=== PATIENT | female | born 1955 | race Caucasian/White ===

== ENCOUNTER 2016-12-25 14:15 | Inpatient (IN) | payer BC ==
[~2016-12-25] VITALS: Ht 157.5 cm; Wt 106.3 kg
[~2016-12-25 14:15] MED LIST: ASCO500T2 PO; ATOR40TA59 PO; BUDE10.2 IH; CHLO25TA PO; CHOL100013 PO; Ipratropium/Albuterol Sulfate NEB; LEVO250T25 PO; MONT10TA6 PO; PANT40TA3 PO; POTA10TA12 PO; PRED-220 PO; VENTOLIN HFA18 GM INH; VITA200C7 PO
[2016-12-25 15:15] LABS: BASO % 1 % (0-3); EOS % 5 % (0-3); HEMATOCRIT 31.7 % (36.0-47.0); HEMOGLOBIN 10.2 g/dL (12.0-15.5); LYMPH # 1.1 x10^3/uL (1.0-4.8); LYMPH % 11 % (24-48); MEAN CORPUSCULAR HEMOGLOBIN 29 pg (25-35); MEAN CORPUSCULAR HGB CONC 32 g/dL (31-37); MEAN CORPUSCULAR VOLUME 90 fL (79-100); MONO % 8 % (0-9); NEUT % 77 % (31-73); PLATELET COUNT 295 x10^3/uL (140-400); RED BLOOD COUNT 3.51 x10^6/uL (3.50-5.40); RED CELL DISTRIBUTION WIDTH 16.5 % (11.5-14.5); WHITE BLOOD COUNT 10.2 x10^3/uL (4.0-11.0)
[2016-12-25] MEDS ORDERED: ALBUTEROL SULFATE 2.5 MG/3 ML NEBU. NEB ONE ×2 (15:15→16:15)
--- NOTE | 2016-12-25 15:17 | RAD ---
AP portable chest radiograph 12/25/2016 Clinical History: Shortness of breath for one week. An AP portable erect digital radiograph of the chest was obtained. Comparison study is dated 05/29/2016. The cardiac silhouette is mildly enlarged. Atherosclerotic calcification of the thoracic aorta is seen. The thoracic aorta is mildly tortuous. No acute pulmonary infiltrate is seen. No pleural effusion or pneumothorax is noted. Mild degenerative changes are seen involving the thoracic spine. Impression: No acute pulmonary infiltrate is seen.
[2016-12-25 15:26] LABS: CALCIUM 9.2 mg/dL (8.5-10.1); CREATININE 3.4 mg/dL (0.6-1.0); GFR 13.7; POTASSIUM 4.7 mmol/L (3.5-5.1)
[2016-12-25 15:33] LABS: ALBUMIN 2.8 g/dL (3.4-5.0); ALBUMIN/GLOBULIN RATIO 0.7 (1.0-1.7); TOTAL BILIRUBIN 0.1 mg/dL (0.2-1.0); TOTAL PROTEIN 7.1 g/dL (6.4-8.2)
[2016-12-25] MEDS ORDERED: methylPREDNISolone SOD SUCC PF 125 MG/2 ML VIAL. IV ONE (16:15)
[2016-12-25] MEDS ORDERED: FUROSEMIDE 40 MG TABLET. PO ONE (16:15)
--- NOTE | 2016-12-25 16:24 | ED.ADGEN ---
Past Medical History Past Medical History: Asthma, COPD Past Surgical History: Alcohol Use: None Drug Use: None Adult General Chief Complaint Chief Complaint: SHORTNESS OF BREATH HPI HPI Patient is a 61 year old female with history of COPD and asthma resents with progressive shortness of breath, productive cough with white sputum for the past 5 days. Patient is pending using home albuterol nebulized treatments every one hour without improvement. She denies fever, chills, nausea vomiting and sweats. No chest pain chest and his, denies leg pain swelling, history of DVT or PE. Patient's PCP is Dr. Sellers. Patient's starting gate driver is Dr. Reeves. Review of Systems Review of Systems ROS as per HPI. Current Medications Current Medications Current Medications Medications (Trade) Dose Ordered Sig/Aki Start Time Stop Time Status Last Admin Dose Admin Albuterol Sulfate (Ventolin Neb Soln) 5 mg 1X ONCE 12/25/16 16:15 12/25/16 16:16 DC Furosemide (Lasix) 60 mg 1X ONCE 12/25/16 16:15 12/25/16 16:16 DC Methylprednisolone Sodium Succinate (SOLU-Medrol 125MG VIAL) 125 mg 1X ONCE 12/25/16 16:15 12/25/16 16:16 DC Allergies Allergies Allergies Coded Allergies Type Severity Reaction Last Updated Verified No Known Drug Allergies 03/30/15 No Physical Exam Physical Exam Constitutional: Well developed, well nourished, no acute distress, non-toxic appearance. HENT: Normocephalic, atraumatic, bilateral external ears normal, oropharynx moist, no oral exudates, nose normal. Eyes: PERRLA, EOMI, conjunctiva normal, no discharge. Neck: Normal range of motion, no tenderness. Cardiovascular:Heart rate regular rhythm, no murmur. 2+ peripheral edema. Lungs & Thorax: Patient's nonlabored, coarse breath sounds diminished bilaterally, occasional expiratory wheeze. No rales appreciated. Speaks in completed sentences. Abdomen: Bowel sounds normal, soft, no tenderness, compromising exam. Skin: Warm, dry. Back: No tenderness. Extremities: No tenderness. Neurologic: Alert and oriented X 3, normal motor function, normal sensory function, no focal deficits noted. Psychologic: Affect normal, judgement normal, mood normal. Current Patient Data Vital Signs Vital Signs Date Time Temp Pulse Resp B/P (MAP) Pulse Ox O2 Delivery O2 Flow Rate FiO2 12/25/16 15:16 94 Nasal Cannula 2.0 12/25/16 14:34 98.6 95 13 167/78 (107) 98.6 Lab Values Laboratory Tests Test 12/25/16 14:40 White Blood Count 10.2 x10^3/uL (4.0-11.0) Red Blood Count 3.51 x10^6/uL (3.50-5.40) Hemoglobin 10.2 g/dL (12.0-15.5) L Hematocrit 31.7 % (36.0-47.0) L Mean Corpuscular Volume 90 fL (79-100) Mean Corpuscular Hemoglobin 29 pg (25-35) Mean Corpuscular Hemoglobin Concent 32 g/dL (31-37) Red Cell Distribution Width 16.5 % (11.5-14.5) H Platelet Count 295 x10^3/uL (140-400) Neutrophils (%) (Auto) 77 % (31-73) H Lymphocytes (%) (Auto) 11 % (24-48) L Monocytes (%) (Auto) 8 % (0-9) Eosinophils (%) (Auto) 5 % (0-3) H Basophils (%) (Auto) 1 % (0-3) Neutrophils # (Auto) 7.8 x10^3uL (1.8-7.7) H Lymphocytes # (Auto) 1.1 x10^3/uL (1.0-4.8) Monocytes # (Auto) 0.8 x10^3/uL (0.0-1.1) Eosinophils # (Auto) 0.5 x10^3/uL (0.0-0.7) Basophils # (Auto) 0.0 x10^3/uL (0.0-0.2) Sodium Level 143 mmol/L (136-145) Potassium Level 4.7 mmol/L (3.5-5.1) Chloride Level 109 mmol/L (98-107) H Carbon Dioxide Level 23 mmol/L (21-32) Anion Gap 11 (6-14) Blood Urea Nitrogen 44 mg/dL (7-20) H Creatinine 3.4 mg/dL (0.6-1.0) H Estimated GFR (Cockcroft-Gault) 13.7 BUN/Creatinine Ratio 13 (6-20) Glucose Level 101 mg/dL (70-99) H Calcium Level 9.2 mg/dL (8.5-10.1) Total Bilirubin 0.1 mg/dL (0.2-1.0) L Aspartate Amino Transferase (AST) 18 U/L (15-37) Alanine Aminotransferase (ALT) 18 U/L (14-59) Alkaline Phosphatase 97 U/L (46-116) Troponin I Quantitative < 0.017 ng/mL (0.000-0.055) UO-Vkc-C-Type Natriuretic Peptide 421 pg/mL (0-124) H Total Protein 7.1 g/dL (6.4-8.2) Albumin 2.8 g/dL (3.4-5.0) L Albumin/Globulin Ratio 0.7 (1.0-1.7) L Laboratory Tests 12/25/16 14:40 Laboratory Tests 12/25/16 14:40 EKG EKG EKG: Normal sinus rhythm, no acute disease. Radiology/Procedures Radiology/Procedures [Chest x-ray: No acute cardiopulmonary disease per radiology report] Course & Med Decision Making Course & Med Decision Making Pertinent Labs and Imaging studies reviewed. (See chart for details) [Patient with dyspnea, respiratory failure requiring oxygen, likely secondary to COPD with possible CHF exacerbation. Patient with chronic kidney disease, BNP elevated. Patient placed on oxygen. Repeat nebs, IV Lasix and Solu-Medrol given. Patient will require hospital admission. Courtesy orders provided. Dragon Disclaimer Dragon Disclaimer This electronic medical record was generated, in whole or in part, using a voice recognition dictation system. SARITA DAY DO Dec 25, 2016 16:24
[2016-12-25] MEDS ORDERED: ONDANSETRON PF 4 MG/2 ML VIAL. IV PRN (16:45)
--- NOTE | 2016-12-25 17:11 | ACF ---
Admission Forms Criteria COPD Clinical Indications for Admission to Inpatient Care (Place 'X' for any and all applicable criteria): Admission is indicated for ANY ONE of the following (1)(2)(3): [X]I. Acute exacerbation by high-risk comorbidity (e.g., pneumonia, dysrhythmia, heart failure, pleural effusion, pneumothorax) or severe underlying COPD (e.g., steroid dependent) [ ]II. Inpatient admission required rather than observation care (see Chronic Obstructive Pulmonary Disease: Observation Care) because of ANY ONE of the following: [ ]a) New or pre-existing signs or symptoms of COPD (eg, dyspnea or Tachypnea at rest or with minimal activity) that persist despite outpatient and observation care treatment [ ]b) New-onset hypoxemia (room air SaO2 less than 90%, PO2 less than 60 mm Hg (8.0 kPa)) that persists despite outpatient and observation care treatment [ ]c) Worsening of pre-existing hypoxemia (eg, new or increased requirement for supplemental oxygen to maintain oxygenation at baseline level) that persists despite outpatient and observation care treatment, with oxygen treatment needs performable only in acute inpatient setting [ ]d) Hypercarbia (PCO2 greater than 40 mm Hg (5.3 kPa))-induced respiratory acidosis (pH less than 7.35) that persists despite outpatient and observation care treatment [ ]e) Supplemental oxygen or respiratory treatments for over 24 hours that are performable only in acute inpatient setting [ ]f) Chest tube placement with active evacuation (e.g., suction, drainage) (5) [ ]g) Other condition, treatment or monitoring requiring inpatient admission [ ]III. Planned invasive surgical or diagnostic procedures requiring acute- care hospitalization [ ]IV. Acute respiratory failure (e.g., uncompensated hypercarbia, severe hypoxemia) [ ]V. Severe comorbid condition (e.g., severe steroid myopathy, acute vertebral fracture) that has acutely worsened pulmonary function [ ]. Confusion state, lethargy, obtundation, stupor or coma Extended stay beyond goal length of stay may be needed for (31)(32): [ ]a ) Respiratory Failure. [ ]b) Severe or persisting hypoxemia or hypercarbia [ ]c) Severe or persistent dyspnea [ ]d) Comorbidities (e.g. chronic heart failure, atrial fibrillation with rapid response, pneumonia) [ ]e) Malnutrition The original [facility] content created by [facility] has been revised. The portions of the content which have been revised are identified through the use of italic text or in bold, and [facility] has neither reviewed nor approved the modified material. All other unmodified content is copyright [facility]. Please see references footnoted in the original [facility] edition 2016 Admission Criteria Met?: Yes PHYLLIS STAPLETON Dec 25, 2016 17:11
[2016-12-25] MEDS ORDERED: LOSA50TA6 PO (18:05)
[2016-12-25] MEDS ORDERED: CHLO25TA PO (18:05)
[2016-12-25] MEDS ORDERED: POTA15TA9 PO (18:05)
[2016-12-25 18:39] VITALS: BP 145/65
[2016-12-25 19:00] VITALS: BP 141/61
[2016-12-25] MEDS: IPRATRPIUM/ALBUTEROL 0.5/2.5MG 3 ML NEBU. NEB SCH (19:39)
[2016-12-25] MEDS: methylPREDNISolone SOD SUCC PF 40 MG/ML VIAL. IV SCH (22:20)
[2016-12-25] MEDS: ALBUTEROL SULFATE 2.5 MG/3 ML NEBU. NEB PRN (23:52)
[2016-12-25 23:58] VITALS: BP 131/75
[2016-12-26 03:58] VITALS: BP 134/71
[2016-12-26] MEDS: ALBUTEROL SULFATE 2.5 MG/3 ML NEBU. NEB PRN ×3 (05:00→23:57)
[2016-12-26] MEDS: methylPREDNISolone SOD SUCC PF 40 MG/ML VIAL. IV SCH ×3 (05:03→21:11)
[2016-12-26 05:48] LABS: BASO % 0 % (0-3); EOS % 0 % (0-3); HEMATOCRIT 31.7 % (36.0-47.0); HEMOGLOBIN 10.5 g/dL (12.0-15.5); LYMPH # 0.3 x10^3/uL (1.0-4.8); LYMPH % 3 % (24-48); MEAN CORPUSCULAR HEMOGLOBIN 29 pg (25-35); MEAN CORPUSCULAR HGB CONC 33 g/dL (31-37); MEAN CORPUSCULAR VOLUME 88 fL (79-100); MONO % 1 % (0-9); NEUT % 96 % (31-73); PLATELET COUNT 283 x10^3/uL (140-400); RED CELL DISTRIBUTION WIDTH 16.4 % (11.5-14.5); WHITE BLOOD COUNT 10.3 x10^3/uL (4.0-11.0)
[2016-12-26 05:58] LABS: CALCIUM 9.2 mg/dL (8.5-10.1); CREATININE 3.5 mg/dL (0.6-1.0); GFR 13.3
[2016-12-26 07:00] VITALS: BP 171/95
[2016-12-26] MEDS: IPRATRPIUM/ALBUTEROL 0.5/2.5MG 3 ML NEBU. NEB SCH ×3 (07:50→17:19)
--- NOTE | 2016-12-26 10:56 | PDOC ---
Provider Note Provider Note [id number] acute resf fail ae of copd see orders. MEGAN SOOD MD Dec 26, 2016 10:56
[2016-12-26 11:00] VITALS: BP 132/55
[2016-12-26] MEDS ORDERED: NON FORMULARY ITEM (Albuterol Sulfate (Ventolin Hfa Inhaler) 2 PUFF) INH PRN (11:30)
[2016-12-26] MEDS ORDERED: NON FORMULARY ITEM ([Ipratropium/Albuterol Sulfate] (Duoneb) 3 ML) NEB SCH (12:00)
[2016-12-26] MEDS: ASCORBIC ACID 500 MG TABLET PO SCH (12:19)
[2016-12-26] MEDS: PANTOPRAZOLE 40 MG TABLET.DR. PO SCH (12:19)
[2016-12-26] MEDS: CHLORTHALIDONE 25 MG TABLET. PO SCH (12:20)
[2016-12-26] MEDS: CHOLECALCIFEROL (VITAMIN D3) 1,000 UNIT TABLET PO SCH ×2 (12:20→21:11)
[2016-12-26] MEDS: LOSARTAN POTASSIUM 50 MG TABLET. PO SCH (12:20)
--- NOTE | 2016-12-26 12:30 | CONS ---
DATE OF CONSULTATION: 12/26/2016 I was asked to see this 61-year-old lady for COPD with acute exacerbation, acute respiratory failure. HISTORY OF PRESENT ILLNESS: She has a history of [id number] smoking, continues to smoke about 1 pack per day. She has not felt good for the past week, she has had increased shortness of breath; cough, no sputum; wheezing. She denies fever or chills. She was admitted for further evaluation. She does snore and has excessive daytime sleepiness, has not had sleep study. PAST MEDICAL HISTORY: COPD, asthma. ALLERGIES: No known drug allergies. MEDICATIONS: Currently, she is on DuoNeb, Solu-Medrol 80 mg IV q. 8 hours. SOCIAL HISTORY: History of [id number] smoking, continues to smoke 1 pack per day. FAMILY HISTORY: Hypertension. REVIEW OF SYSTEMS: As mentioned as above, other systems otherwise negative. PHYSICAL EXAMINATION: GENERAL: This is an obese lady. VITAL SIGNS: Her O2 saturation on 2 liters of oxygen is 91%, respiratory rate 18, heart rate 96, blood pressure 134/71, temperature 96.6. HEENT: Normocephalic, atraumatic. Pupils equal, round, reactive to light. Throat is clear. There is shallow oropharynx. Nose is clear. NECK: There is no JVD, lymphadenopathy, or thyromegaly. CARDIOVASCULAR: Regular rate and rhythm. PMI is nondisplaced. CHEST: Inspection is normal. LUNGS: There is end expiratory wheezing. ABDOMEN: Soft. Bowel sounds are good. There is no mass. EXTREMITIES: There is edema. LYMPHATICS: There is no lymphadenopathy. NEUROLOGIC: She is alert and oriented. SKIN: Warm. LABORATORY DATA: I reviewed the following lab data: Chest x-ray does not show any infiltrate. WBC 10.3, hemoglobin 10.5, platelets 283. Sodium 140, potassium 5, chloride 106, CO2 of 22, glucose 159, BUN 51, creatinine 3.5. IMPRESSION: 1. Acute respiratory failure, multifactorial in etiology. 2. Acute exacerbation of chronic obstructive pulmonary disease. 3. Acute kidney injury. 4. Chronic kidney disease. 5. Obesity, snoring and excessive daytime sleepiness, probable obstructive sleep apnea-hypopnea syndrome. 6. Smoker. PLAN AND RECOMMENDATIONS: 1. I had a long discussion with her regarding smoking cessation. I have advised her to stop smoking forever. 2. Bronchodilator. 3. Add Pulmicort. 4. Continue Solu-Medrol. 5. Gentle hydration, may consider Nephrology consultation. 6. I have discussed obstructive sleep apnea-hypopnea syndrome, the importance of diagnosis and treatment, if untreated, increased cardiovascular and CORE STACKER morbidity or mortality. I do recommend a sleep study as an outpatient. 7. Lose weight. 8. Protonix for stress ulcer prophylaxis. 9. Lovenox for DVT prophylaxis. 10. Monitor respiratory status very closely. Thank you very much for allowing me to participate in care of this very nice lady. MEGAN SOOD M.D. DR: Martinez JOB#: [id number] / [id number]
[2016-12-26 13:14] LABS: PLT ESTIMATE ADEQUATE (ADEQUATE)
--- NOTE | 2016-12-26 13:58 | PDOC ---
OBJECTIVE Vital Signs Vital Signs Date Time Temp Pulse Resp B/P (MAP) Pulse Ox O2 Delivery O2 Flow Rate FiO2 12/26/16 12:20 91 132/55 12/26/16 12:19 Nasal Cannula 2.0 12/26/16 11:00 97.7 91 18 132/55 (80) 90 Nasal Cannula 2.0 97.7 12/26/16 08:00 Nasal Cannula 2.0 12/26/16 07:52 91 Nasal Cannula 2.0 12/26/16 07:00 96.6 96 18 171/95 (120) 90 Nasal Cannula 2.0 96.6 12/26/16 05:00 94 Nasal Cannula 2.0 12/26/16 05:00 Nasal Cannula 2.0 12/26/16 03:58 97.6 91 22 134/71 (92) 94 Nasal Cannula 2.0 97.6 12/25/16 23:58 98.2 94 22 131/75 (93) 95 Nasal Cannula 2.0 98.2 12/25/16 23:52 94 Nasal Cannula 2.0 12/25/16 22:45 Nasal Cannula 2.0 12/25/16 20:00 Nasal Cannula 2.0 12/25/16 19:40 92 Nasal Cannula 2.0 12/25/16 19:00 97.0 80 18 141/61 (87) 90 Nasal Cannula 2.0 97.0 12/25/16 18:39 97.9 82 18 145/65 (91) 90 Nasal Cannula 2.0 97.9 12/25/16 17:00 77 20 148/89 (108) 94 Nasal Cannula 2.0 12/25/16 16:39 94 Nasal Cannula 2.0 12/25/16 16:00 71 20 154/99 (117) 94 Nasal Cannula 2.0 12/25/16 15:16 94 Nasal Cannula 2.0 12/25/16 15:00 74 20 158/87 (110) 94 Nasal Cannula 2.0 12/25/16 14:34 98.6 95 13 167/78 (107) 90 Room Air 98.6 I & O Intake and Output 12/26/16 07:00 Intake Total 730 ml Balance 730 ml Intake Oral 730 ml # Voids 2 ASSESSMENT/PLAN Assessment/Plan [id number] H&P dictated Problems: COMMENT Lab Laboratory Tests Test 12/25/16 14:40 12/26/16 04:30 White Blood Count 10.2 x10^3/uL (4.0-11.0) 10.3 x10^3/uL (4.0-11.0) Red Blood Count 3.51 x10^6/uL (3.50-5.40) 3.60 x10^6/uL (3.50-5.40) Hemoglobin 10.2 g/dL (12.0-15.5) 10.5 g/dL (12.0-15.5) Hematocrit 31.7 % (36.0-47.0) 31.7 % (36.0-47.0) Mean Corpuscular Volume 90 fL (79-100) 88 fL (79-100) Mean Corpuscular Hemoglobin 29 pg (25-35) 29 pg (25-35) Mean Corpuscular Hemoglobin Concent 32 g/dL (31-37) 33 g/dL (31-37) Red Cell Distribution Width 16.5 % (11.5-14.5) 16.4 % (11.5-14.5) Platelet Count 295 x10^3/uL (140-400) 283 x10^3/uL (140-400) Neutrophils (%) (Auto) 77 % (31-73) 96 % (31-73) Lymphocytes (%) (Auto) 11 % (24-48) 3 % (24-48) Monocytes (%) (Auto) 8 % (0-9) 1 % (0-9) Eosinophils (%) (Auto) 5 % (0-3) 0 % (0-3) Basophils (%) (Auto) 1 % (0-3) 0 % (0-3) Neutrophils # (Auto) 7.8 x10^3uL (1.8-7.7) 9.9 x10^3uL (1.8-7.7) Lymphocytes # (Auto) 1.1 x10^3/uL (1.0-4.8) 0.3 x10^3/uL (1.0-4.8) Monocytes # (Auto) 0.8 x10^3/uL (0.0-1.1) 0.1 x10^3/uL (0.0-1.1) Eosinophils # (Auto) 0.5 x10^3/uL (0.0-0.7) 0.0 x10^3/uL (0.0-0.7) Basophils # (Auto) 0.0 x10^3/uL (0.0-0.2) 0.0 x10^3/uL (0.0-0.2) Sodium Level 143 mmol/L (136-145) 140 mmol/L (136-145) Potassium Level 4.7 mmol/L (3.5-5.1) 5.0 mmol/L (3.5-5.1) Chloride Level 109 mmol/L (98-107) 106 mmol/L (98-107) Carbon Dioxide Level 23 mmol/L (21-32) 22 mmol/L (21-32) Anion Gap 11 (6-14) 12 (6-14) Blood Urea Nitrogen 44 mg/dL (7-20) 51 mg/dL (7-20) Creatinine 3.4 mg/dL (0.6-1.0) 3.5 mg/dL (0.6-1.0) Estimated GFR (Cockcroft-Gault) 13.7 13.3 BUN/Creatinine Ratio 13 (6-20) Glucose Level 101 mg/dL (70-99) 159 mg/dL (70-99) Calcium Level 9.2 mg/dL (8.5-10.1) 9.2 mg/dL (8.5-10.1) Total Bilirubin 0.1 mg/dL (0.2-1.0) Aspartate Amino Transf (AST/SGOT) 18 U/L (15-37) Alanine Aminotransferase (ALT/SGPT) 18 U/L (14-59) Alkaline Phosphatase 97 U/L (46-116) Troponin I Quantitative < 0.017 ng/mL (0.000-0.055) CW-Wbf-X-Type Natriuretic Peptide 421 pg/mL (0-124) Total Protein 7.1 g/dL (6.4-8.2) Albumin 2.8 g/dL (3.4-5.0) Albumin/Globulin Ratio 0.7 (1.0-1.7) Segmented Neutrophils % 94 % (35-66) Band Neutrophils % 1 % (0-9) Lymphocytes % 5 % (24-48) Platelet Estimate Adequate (ADEQUATE) JEAN PAUL YEN MD Dec 26, 2016 13:58
--- NOTE | 2016-12-26 14:27 | PREOP HP ---
DATE OF SERVICE: HISTORY OF PRESENT ILLNESS: The patient is admitted to room number 534. She is a 61-year-old lady who is known to have a history of COPD, presented to the Emergency Room complaining of increasing shortness of breath, wheezing, not able to breathe and having some cough with whitish sputum. Her symptoms have gotten worse over the last 5 days. She has been using her albuterol inhaler, almost every hours throughout the night, she then able to breathe and still was short of breath. At that point, she decided to come to the Emergency Room. She denies fever, chills, nausea, vomiting, and sweats. She denies chest pain. Denies leg swelling and there is no history of DVT or PE. PAST MEDICAL HISTORY: Significant for COPD, hypertension, asthma, chronic kidney disease stage 3. SOCIAL HISTORY: She smokes, denies use of alcohol or drugs. She has had her flu shot and pneumonia vaccine. FAMILY HISTORY: Positive for hypertension and coronary artery disease. REVIEW OF SYSTEMS: CONSTITUTIONAL: Denies fever or chills. She does have fatigue and increasing shortness of breath. HEENT: Denies sore throat or congestion. PULMONARY: She does have increasing shortness of breath and cough. CARDIOVASCULAR: Denies swelling in the lower extremities with chest pain. GASTROINTESTINAL: Denies nausea, vomiting, abdominal pain. GENITOURINARY: She does have stress incontinence. Denies dysuria. MUSCULOSKELETAL: She does have arthritis. NEUROLOGY: Denies focal deficit. PHYSICAL EXAMINATION: GENERAL: She is alert and oriented, in no acute distress, cooperative. HEENT: Tympanic membranes clear. Pharynx clear. No sinus tenderness. NECK: Supple, no JVD or bruit or cervical adenopathy. LUNGS: With decreased breath sounds bilaterally, poor air movement and scattered wheezes. HEART: Regular rate and rhythm. ABDOMEN: Soft, nontender, no organomegaly, no masses, no bruits, no ascites. EXTREMITIES: No edema, clubbing or cyanosis. SKIN: Warm and dry. NEUROLOGIC: Without focal deficit. She is alert and oriented x 3. IMPRESSION: 1. Acute respiratory failure. 2. Acute exacerbation of chronic obstructive pulmonary disease. 3. Acute on chronic renal failure. 4. Anemia, probably of chronic disease due to her chronic kidney disease. 5. Hypertension. JEAN PAUL YEN MD DR: Maria Alejandra JOB#: [id number] / [id number]
[2016-12-26 15:00] VITALS: BP 148/63
[2016-12-26] MEDS: ENOXAPARIN 30 MG/0.3 ML SYRINGE. SQ SCH ×3 (17:00→17:09)
[2016-12-26 19:00] VITALS: BP 143/77
[2016-12-26] MEDS: BUDESONIDE 0.5 MG/2 ML NEBU. NEB SCH (20:19)
[2016-12-26] MEDS: MONTELUKAST SODIUM 10 MG TABLET. PO SCH (21:11)
[2016-12-26] MEDS: ATORVASTATIN CALCIUM 40 MG TABLET. PO SCH (21:11)
[2016-12-26 23:00] VITALS: BP_SYST 105; BP_SYST 15; BP_DIAS 52
[2016-12-27 03:00] VITALS: BP 147/74
[2016-12-27] MEDS: ALBUTEROL SULFATE 2.5 MG/3 ML NEBU. NEB PRN (04:45)
[2016-12-27] MEDS: methylPREDNISolone SOD SUCC PF 40 MG/ML VIAL. IV SCH ×3 (05:41→21:08)
[2016-12-27] MEDS: IPRATRPIUM/ALBUTEROL 0.5/2.5MG 3 ML NEBU. NEB SCH ×4 (06:18→19:33)
[2016-12-27] MEDS: BUDESONIDE 0.5 MG/2 ML NEBU. NEB SCH ×2 (06:18→19:33)
[2016-12-27 07:00] VITALS: BP 114/50
[2016-12-27] MEDS: PANTOPRAZOLE 40 MG TABLET.DR. PO SCH (09:42)
[2016-12-27] MEDS: CHOLECALCIFEROL (VITAMIN D3) 1,000 UNIT TABLET PO SCH ×2 (09:43→21:07)
[2016-12-27] MEDS: ASCORBIC ACID 500 MG TABLET PO SCH (09:43)
[2016-12-27] MEDS: CHLORTHALIDONE 25 MG TABLET. PO SCH (09:43)
[2016-12-27] MEDS: LOSARTAN POTASSIUM 50 MG TABLET. PO SCH (09:44)
--- NOTE | 2016-12-27 10:24 | PDOC ---
PULMONARY PROGRESS NOTES Subjective sob better, has more cough, nasal congestion, no pain Vitals Vital Signs Date Time Temp Pulse Resp B/P (MAP) Pulse Ox O2 Delivery O2 Flow Rate FiO2 12/27/16 09:44 83 114/50 12/27/16 07:00 97.5 22 90 Nasal Cannula 2.0 97.5 General: Alert, No acute distress HEENT: Other Lungs: Crackles, Other Cardiovascular: S1, S2 Abdomen: Soft, Non-tender Extremities: Other Labs Laboratory Tests Test 12/25/16 14:40 12/26/16 04:30 White Blood Count 10.2 x10^3/uL (4.0-11.0) 10.3 x10^3/uL (4.0-11.0) Red Blood Count 3.51 x10^6/uL (3.50-5.40) 3.60 x10^6/uL (3.50-5.40) Hemoglobin 10.2 g/dL (12.0-15.5) 10.5 g/dL (12.0-15.5) Hematocrit 31.7 % (36.0-47.0) 31.7 % (36.0-47.0) Mean Corpuscular Volume 90 fL (79-100) 88 fL (79-100) Mean Corpuscular Hemoglobin 29 pg (25-35) 29 pg (25-35) Mean Corpuscular Hemoglobin Concent 32 g/dL (31-37) 33 g/dL (31-37) Red Cell Distribution Width 16.5 % (11.5-14.5) 16.4 % (11.5-14.5) Platelet Count 295 x10^3/uL (140-400) 283 x10^3/uL (140-400) Neutrophils (%) (Auto) 77 % (31-73) 96 % (31-73) Lymphocytes (%) (Auto) 11 % (24-48) 3 % (24-48) Monocytes (%) (Auto) 8 % (0-9) 1 % (0-9) Eosinophils (%) (Auto) 5 % (0-3) 0 % (0-3) Basophils (%) (Auto) 1 % (0-3) 0 % (0-3) Neutrophils # (Auto) 7.8 x10^3uL (1.8-7.7) 9.9 x10^3uL (1.8-7.7) Lymphocytes # (Auto) 1.1 x10^3/uL (1.0-4.8) 0.3 x10^3/uL (1.0-4.8) Monocytes # (Auto) 0.8 x10^3/uL (0.0-1.1) 0.1 x10^3/uL (0.0-1.1) Eosinophils # (Auto) 0.5 x10^3/uL (0.0-0.7) 0.0 x10^3/uL (0.0-0.7) Basophils # (Auto) 0.0 x10^3/uL (0.0-0.2) 0.0 x10^3/uL (0.0-0.2) Sodium Level 143 mmol/L (136-145) 140 mmol/L (136-145) Potassium Level 4.7 mmol/L (3.5-5.1) 5.0 mmol/L (3.5-5.1) Chloride Level 109 mmol/L (98-107) 106 mmol/L (98-107) Carbon Dioxide Level 23 mmol/L (21-32) 22 mmol/L (21-32) Anion Gap 11 (6-14) 12 (6-14) Blood Urea Nitrogen 44 mg/dL (7-20) 51 mg/dL (7-20) Creatinine 3.4 mg/dL (0.6-1.0) 3.5 mg/dL (0.6-1.0) Estimated GFR (Cockcroft-Gault) 13.7 13.3 BUN/Creatinine Ratio 13 (6-20) Glucose Level 101 mg/dL (70-99) 159 mg/dL (70-99) Calcium Level 9.2 mg/dL (8.5-10.1) 9.2 mg/dL (8.5-10.1) Total Bilirubin 0.1 mg/dL (0.2-1.0) Aspartate Amino Transf (AST/SGOT) 18 U/L (15-37) Alanine Aminotransferase (ALT/SGPT) 18 U/L (14-59) Alkaline Phosphatase 97 U/L (46-116) Troponin I Quantitative < 0.017 ng/mL (0.000-0.055) ZE-Yrh-R-Type Natriuretic Peptide 421 pg/mL (0-124) Total Protein 7.1 g/dL (6.4-8.2) Albumin 2.8 g/dL (3.4-5.0) Albumin/Globulin Ratio 0.7 (1.0-1.7) Segmented Neutrophils % 94 % (35-66) Band Neutrophils % 1 % (0-9) Lymphocytes % 5 % (24-48) Platelet Estimate Adequate (ADEQUATE) Medications Active Scripts Medications Dose Route/Sig Max Daily Dose Days Date Category Dose Instructions Chlorthalidone 25 Mg Tablet 25 Mg PO 12/25/16 Reported Potassium Citrate Er (Potassium Citrate) 15 Meq Tablet.er 20 Meq PO EVERY OTHER DAY 12/25/16 Reported Losartan Potassium 50 Mg Tablet 50 Mg PO DAILY 12/25/16 Reported Prednisone 10 Mg Tablet 10 Mg PO UD 04/11/15 Rx Take 3 tablets by mouth twice a day for 3 days, then take 2 tablets by mouth twice a day for 3 days, then take 1 tablet by mouth twice a day for 3 days, then take 1 tablet by mouth daily x 3 days, then stop. Protonix (Pantoprazole Sodium) 40 Mg Tablet 40 Mg PO DAILYAC 04/11/15 Rx Singulair Tablet (Montelukast Sodium) 10 Mg Tablet 10 Mg PO QHS 04/11/15 Rx Levaquin (Levofloxacin) 250 Mg Tablet 250 Mg PO DAILY06 04/11/15 Rx [Ipratropium/Albuterol Sulfate] 3 ML Nebu 3 Ml NEB RTQID 04/11/15 Rx Atorvastatin Calcium 40 Mg Tablet 40 Mg PO HS 04/07/15 Reported Vitamin D (Cholecalciferol (Vitamin D3)) 1,000 Unit Capsule 1,000 Units PO BID 03/30/15 Reported Vitamin C (Ascorbic Acid) 500 Mg Tablet 500 Mg PO DAILY 03/30/15 Reported Ventolin Hfa Inhaler (Albuterol Sulfate) 18 Gm Hfa.aer.ad 2 Puff INH Q4HRS PRN 03/30/15 Reported Impression . IMPRESSION: 1. Acute respiratory failure, multifactorial in etiology. 2. Acute exacerbation of chronic obstructive pulmonary disease. 3. Acute kidney injury. 4. Chronic kidney disease. 5. Obesity, snoring and excessive daytime sleepiness, probable obstructive sleep apnea-hypopnea syndrome. 6. Smoker. 7. allergic rhinitis Plan . PLAN AND RECOMMENDATIONS: 1. I had a long discussion with her regarding smoking cessation. I have advised her to stop smoking forever. 2. Bronchodilator. 3. Pulmicort. 4. change Solu-Medrol to 40 q 8hrs 5. Gentle hydration, may consider Nephrology consultation. 6. I have discussed obstructive sleep apnea-hypopnea syndrome, the importance of diagnosis and treatment, if untreated, increased cardiovascular and [employer]ILY [employer] MEDIATOR morbidity or mortality. I do recommend a sleep study as an outpatient. 7. Lose weight. 8. Protonix for stress ulcer prophylaxis. 9. Lovenox for DVT prophylaxis. 10. Monitor respiratory status very closely. 11. jessika kraus w MEGAN Merritt MD Dec 27, 2016 10:24
[2016-12-27 11:00] VITALS: BP 140/69
--- NOTE | 2016-12-27 12:55 | PDOC ---
SUBJECTIVE Subjective feels better, breathing better OBJECTIVE Vital Signs Vital Signs Date Time Temp Pulse Resp B/P (MAP) Pulse Ox O2 Delivery O2 Flow Rate FiO2 12/27/16 11:36 95 Nasal Cannula 2.0 12/27/16 11:00 97.8 89 22 140/69 (92) 91 Nasal Cannula 2.0 97.8 12/27/16 09:44 83 114/50 12/27/16 08:00 Nasal Cannula 2.0 12/27/16 07:00 97.5 83 22 114/50 (71) 90 Nasal Cannula 2.0 97.5 12/27/16 06:20 92 Nasal Cannula 2.0 12/27/16 06:20 92 Nasal Cannula 2.0 12/27/16 04:44 Nasal Cannula 2.0 12/27/16 03:00 97.5 107 20 147/74 (98) 92 Nasal Cannula 2.0 97.5 12/26/16 23:57 Nasal Cannula 2.0 12/26/16 23:00 97.5 93 18 105/52 (69) 90 Room Air 97.5 12/26/16 20:02 90 Nasal Cannula 2.0 12/26/16 20:00 Nasal Cannula 2.0 12/26/16 19:00 97.5 103 18 143/77 (99) 90 Room Air 97.5 12/26/16 17:20 Nasal Cannula 2.0 12/26/16 15:00 97.7 87 16 148/63 (91) 92 Nasal Cannula 2.0 97.7 I & O Intake and Output 12/27/16 07:00 Intake Total 2500 ml Balance 2500 ml Intake Oral 2500 ml # Voids 8 # Bowel Movements 1 PHYSICAL EXAM Physical Exam stable ASSESSMENT/PLAN Assessment/Plan 1. Acute respiratory failure. 2. Acute exacerbation of chronic obstructive pulmonary disease. 3. Acute on chronic renal failure. 4. Anemia, probably of chronic disease due to her chronic kidney disease. 5. Hypertension. continue plans Problems: JEAN PAUL YEN MD Dec 27, 2016 12:55
[2016-12-27 15:00] VITALS: BP 133/58
[2016-12-27] MEDS: ENOXAPARIN 40 MG/0.4 ML SYRINGE. SQ SCH (16:35)
[2016-12-27 19:00] VITALS: BP 129/56
[2016-12-27] MEDS: MONTELUKAST SODIUM 10 MG TABLET. PO SCH (21:07)
[2016-12-27] MEDS: ATORVASTATIN CALCIUM 40 MG TABLET. PO SCH (21:07)
[2016-12-27] MEDS: BENZONATATE 100 MG CAPSULE. PO PRN (21:07)
[2016-12-27 23:00] VITALS: BP 115/57
[2016-12-28] MEDS: ALBUTEROL SULFATE 2.5 MG/3 ML NEBU. NEB PRN ×2 (02:26→23:34)
[2016-12-28 03:00] VITALS: BP 114/66
[2016-12-28 03:25] LABS: CALCIUM 8.9 mg/dL (8.5-10.1); CREATININE 3.7 mg/dL (0.6-1.0); GFR 12.5
[2016-12-28 04:00] LABS: HEMOGLOBIN 9.9 g/dL (12.0-15.5); RED BLOOD COUNT 3.42 x10^6/uL (3.50-5.40); RED CELL DISTRIBUTION WIDTH 16.3 % (11.5-14.5); WHITE BLOOD COUNT 16.1 x10^3/uL (4.0-11.0)
[2016-12-28] MEDS: methylPREDNISolone SOD SUCC PF 40 MG/ML VIAL. IV SCH (05:17)
[2016-12-28] MEDS: PANTOPRAZOLE 40 MG TABLET.DR. PO SCH (05:17)
[2016-12-28] MEDS: BUDESONIDE 0.5 MG/2 ML NEBU. NEB SCH ×2 (07:06→19:51)
[2016-12-28] MEDS: IPRATRPIUM/ALBUTEROL 0.5/2.5MG 3 ML NEBU. NEB SCH ×4 (07:06→19:51)
[2016-12-28 08:10] VITALS: BP 150/76
[2016-12-28] MEDS: LOSARTAN POTASSIUM 50 MG TABLET. PO SCH (08:19)
[2016-12-28] MEDS: CHLORTHALIDONE 25 MG TABLET. PO SCH (08:19)
[2016-12-28] MEDS: ASCORBIC ACID 500 MG TABLET PO SCH (08:19)
[2016-12-28] MEDS: CHOLECALCIFEROL (VITAMIN D3) 1,000 UNIT TABLET PO SCH ×2 (08:19→20:21)
[2016-12-28 10:45] VITALS: BP 140/71
[2016-12-28] MEDS: DOXYCYCLINE HYCLATE 100 MG TABLET PO SCH ×2 (12:58→20:21)
[2016-12-28] MEDS ORDERED: IV DEXTROSE 5 %-0.45 % NACL 1,000 ML IV ONE (13:00)
--- NOTE | 2016-12-28 13:08 | PDOC ---
SUBJECTIVE Subjective better OBJECTIVE Vital Signs Vital Signs Date Time Temp Pulse Resp B/P (MAP) Pulse Ox O2 Delivery O2 Flow Rate FiO2 12/28/16 11:14 94 Room Air 12/28/16 10:45 97.5 77 18 140/71 (94) 93 Room Air 97.5 12/28/16 08:19 80 150/76 12/28/16 08:10 98.1 86 18 150/76 (100) 94 Room Air 98.1 12/28/16 07:34 Nasal Cannula 2.0 12/28/16 07:07 92 Room Air 12/28/16 03:00 96.8 91 18 114/66 (82) 92 Nasal Cannula 2.0 96.8 12/28/16 02:26 Room Air 12/27/16 23:00 97.5 80 18 115/57 (76) 91 Nasal Cannula 2.0 97.5 12/27/16 20:00 Room Air 12/27/16 19:34 Room Air 12/27/16 19:34 Room Air 12/27/16 19:00 96.8 81 18 129/56 (80) 90 Nasal Cannula 2.0 96.8 12/27/16 16:00 Nasal Cannula 2.0 12/27/16 15:00 97.6 91 18 133/58 (83) 94 Nasal Cannula 2.0 97.6 I & O Intake and Output 12/28/16 07:00 Intake Total 3100 ml Balance 3100 ml Intake Oral 3100 ml # Voids 7 PHYSICAL EXAM Physical Exam lungs better ASSESSMENT/PLAN Assessment/Plan 1. Acute respiratory failure. 2. Acute exacerbation of chronic obstructive pulmonary disease. switch to po steroids 3. Acute on chronic renal failure slow hydration, 4. Anemia, probably of chronic disease due to her chronic kidney disease. 5. Hypertension. 6. lekocytosis ? steroids but will add ABx's hope home in AM, check Echo Problems: COMMENT Lab Laboratory Tests Test 12/28/16 02:55 White Blood Count 16.1 x10^3/uL (4.0-11.0) Red Blood Count 3.42 x10^6/uL (3.50-5.40) Hemoglobin 9.9 g/dL (12.0-15.5) Hematocrit 31.0 % (36.0-47.0) Mean Corpuscular Volume 91 fL (79-100) Mean Corpuscular Hemoglobin 29 pg (25-35) Mean Corpuscular Hemoglobin Concent 32 g/dL (31-37) Red Cell Distribution Width 16.3 % (11.5-14.5) Platelet Count 300 x10^3/uL (140-400) Sodium Level 135 mmol/L (136-145) Potassium Level 5.0 mmol/L (3.5-5.1) Chloride Level 102 mmol/L (98-107) Carbon Dioxide Level 20 mmol/L (21-32) Anion Gap 13 (6-14) Blood Urea Nitrogen 76 mg/dL (7-20) Creatinine 3.7 mg/dL (0.6-1.0) Estimated GFR (Cockcroft-Gault) 12.5 Glucose Level 165 mg/dL (70-99) Calcium Level 8.9 mg/dL (8.5-10.1) JEAN PAUL YEN MD Dec 28, 2016 13:08
--- NOTE | 2016-12-28 15:11 | PDOC ---
PULMONARY PROGRESS NOTES Subjective pt feels better Vitals Vital Signs Date Time Temp Pulse Resp B/P (MAP) Pulse Ox O2 Delivery O2 Flow Rate FiO2 12/28/16 11:14 94 Room Air 12/28/16 10:45 97.5 77 18 140/71 (94) 97.5 12/28/16 07:34 2.0 ROS: No Nausea, No Chest Pain, No Abdominal Pain, No Increase Cough General: Alert, No acute distress HEENT: Other Lungs: Clear Cardiovascular: S1, S2 Abdomen: Soft, Non-tender Neuro Exam: Alert Extremities: No Edema Skin: Warm Labs Laboratory Tests Test 12/28/16 02:55 White Blood Count 16.1 x10^3/uL (4.0-11.0) Red Blood Count 3.42 x10^6/uL (3.50-5.40) Hemoglobin 9.9 g/dL (12.0-15.5) Hematocrit 31.0 % (36.0-47.0) Mean Corpuscular Volume 91 fL (79-100) Mean Corpuscular Hemoglobin 29 pg (25-35) Mean Corpuscular Hemoglobin Concent 32 g/dL (31-37) Red Cell Distribution Width 16.3 % (11.5-14.5) Platelet Count 300 x10^3/uL (140-400) Sodium Level 135 mmol/L (136-145) Potassium Level 5.0 mmol/L (3.5-5.1) Chloride Level 102 mmol/L (98-107) Carbon Dioxide Level 20 mmol/L (21-32) Anion Gap 13 (6-14) Blood Urea Nitrogen 76 mg/dL (7-20) Creatinine 3.7 mg/dL (0.6-1.0) Estimated GFR (Cockcroft-Gault) 12.5 Glucose Level 165 mg/dL (70-99) Calcium Level 8.9 mg/dL (8.5-10.1) Laboratory Tests Test 12/28/16 02:55 White Blood Count 16.1 x10^3/uL (4.0-11.0) Red Blood Count 3.42 x10^6/uL (3.50-5.40) Hemoglobin 9.9 g/dL (12.0-15.5) Hematocrit 31.0 % (36.0-47.0) Mean Corpuscular Volume 91 fL (79-100) Mean Corpuscular Hemoglobin 29 pg (25-35) Mean Corpuscular Hemoglobin Concent 32 g/dL (31-37) Red Cell Distribution Width 16.3 % (11.5-14.5) Platelet Count 300 x10^3/uL (140-400) Sodium Level 135 mmol/L (136-145) Potassium Level 5.0 mmol/L (3.5-5.1) Chloride Level 102 mmol/L (98-107) Carbon Dioxide Level 20 mmol/L (21-32) Anion Gap 13 (6-14) Blood Urea Nitrogen 76 mg/dL (7-20) Creatinine 3.7 mg/dL (0.6-1.0) Estimated GFR (Cockcroft-Gault) 12.5 Glucose Level 165 mg/dL (70-99) Calcium Level 8.9 mg/dL (8.5-10.1) Medications Active Scripts Medications Dose Route/Sig Max Daily Dose Days Date Category Dose Instructions Chlorthalidone 25 Mg Tablet 25 Mg PO 12/25/16 Reported Potassium Citrate Er (Potassium Citrate) 15 Meq Tablet.er 20 Meq PO EVERY OTHER DAY 12/25/16 Reported Losartan Potassium 50 Mg Tablet 50 Mg PO DAILY 12/25/16 Reported Prednisone 10 Mg Tablet 10 Mg PO UD 04/11/15 Rx Take 3 tablets by mouth twice a day for 3 days, then take 2 tablets by mouth twice a day for 3 days, then take 1 tablet by mouth twice a day for 3 days, then take 1 tablet by mouth daily x 3 days, then stop. Protonix (Pantoprazole Sodium) 40 Mg Tablet 40 Mg PO DAILYAC 04/11/15 Rx Singulair Tablet (Montelukast Sodium) 10 Mg Tablet 10 Mg PO QHS 04/11/15 Rx Levaquin (Levofloxacin) 250 Mg Tablet 250 Mg PO DAILY06 04/11/15 Rx [Ipratropium/Albuterol Sulfate] 3 ML Nebu 3 Ml NEB RTQID 04/11/15 Rx Atorvastatin Calcium 40 Mg Tablet 40 Mg PO HS 04/07/15 Reported Vitamin D (Cholecalciferol (Vitamin D3)) 1,000 Unit Capsule 1,000 Units PO BID 03/30/15 Reported Vitamin C (Ascorbic Acid) 500 Mg Tablet 500 Mg PO DAILY 03/30/15 Reported Ventolin Hfa Inhaler (Albuterol Sulfate) 18 Gm Hfa.aer.ad 2 Puff INH Q4HRS PRN 03/30/15 Reported Impression . IMPRESSION: 1. Acute respiratory failure, multifactorial in etiology. 2. Acute exacerbation of chronic obstructive pulmonary disease. 3. Acute kidney injury. 4. Chronic kidney disease. 5. Obesity, snoring and excessive daytime sleepiness, probable obstructive sleep apnea-hypopnea syndrome. 6. Smoker. 7. allergic rhinitis Plan . 1. Home in am ok taper pred 2. Bronchodilator. 3. Pulmicort. 4. d/c smoking 5. outpt sleep study CAMRON SIMON MD Dec 28, 2016 15:11
--- NOTE | 2016-12-28 15:26 | CARD ---
APPROVED REPORT EXAM: Two-dimensional and M-mode echocardiogram with Doppler and color Doppler. Other Information Quality : Average Rhythm : NSR with PAC's INDICATION Dyspnea 2D DIMENSIONS RVDd2.9 (2.9-3.5cm)Left Atrium(2D)3.7 (1.6-4.0cm) IVSd1.1 (0.7-1.1cm)Aortic Root(2D)2.7 (2.0-3.7cm) LVDd5.2 (3.9-5.9cm)LVOT Diameter2.0 (1.8-2.4cm) PWd1.1 (0.7-1.1cm)LVDs3.3 (2.5-4.0cm) FS (%) 37.3 %SV87.5 ml LVEF(%)66.9 (>50%) Aortic Valve AoV Peak Pj.197.4cm/sAoV VTI40.4cm AO Peak GR.15.6mmHgLVOT VTI 23.03cm AO Mean GR.8mmHg Mitral Valve MV E Xmzhqdfv891.1cm/sMV E Peak Gr.5mmHg MV DECEL [id number] A Kgyoccjs862.3cm/s MV RVE86btL/A Ratio0.9 MV A Afgajpcn53zuMGN (PHT)3.24cm2 TDI Lateral E' P. V11.64cm/sMedial E' P. V11.45cm/s E/Lateral E'9.4E/Medial E'9.5 Tricuspid Valve TR P. Yleizzam765cu/sRAP FFCVDHWU9amFq TR Peak Gr.97ovByNQYQ83ipTh Pulmonary Vein S1 Fxgotewu12.5cm/sS2 Nwxbcaxs47.81cm/s D2 Fmxbklbr41.8cm/sPVa qbdbgvaw051qbcm LEFT VENTRICLE The left ventricle is normal size. There is normal left ventricular wall thickness. Left ventricle sy stolic function is normal. The Ejection Fraction is 60-65%. There is normal LV segmental wall motion. The left ventricular diastolic function and filling is normal for age. There is no ventricular septa l defect visualized. RIGHT VENTRICLE The right ventricle is normal size. The right ventricular systolic function is normal. ATRIA The left atrium size is normal. The right atrium size is normal. The interatrial septum is intact wit h no evidence for an atrial septal defect or patent foramen ovale as noted on 2-D or Doppler imaging. AORTIC VALVE The aortic valve is calcified and not well visualized. Doppler and Color Flow revealed no significant aortic regurgitation. There is no significant aortic valvular stenosis. MITRAL VALVE The mitral valve is normal in structure and function. There is no mitral valve stenosis. Doppler and Color Flow revealed no mitral valve regurgitation noted. TRICUSPID VALVE The tricuspid valve is normal in structure and function. Doppler and Color Flow revealed trace to mil d tricuspid regurgitation. The PA pressure was estimated at 29 mmHg. There is no tricuspid valve sten osis. PULMONIC VALVE The pulmonic valve is not well visualized. Doppler and Color Flow revealed trace pulmonic valvular re gurgitation. There is no pulmonic valvular stenosis. GREAT VESSELS The aortic root is normal in size. The ascending aorta is Mildly dilated. The IVC is normal in size a nd collapses >50% with inspiration. PERICARDIAL EFFUSION There is no evidence of significant pericardial effusion. Critical Notification Critical Value: No <Conclusion> Left ventricle systolic function is normal. The Ejection Fraction is 60-65%. There is normal LV segmental wall motion.
[2016-12-28 15:33] VITALS: BP 128/69
[2016-12-28] MEDS ORDERED: ENOXAPARIN 30 MG/0.3 ML SYRINGE. SQ SCH (16:00)
[2016-12-28] MEDS: ENOXAPARIN 40 MG/0.4 ML SYRINGE. SQ SCH (17:00)
[2016-12-28 19:00] VITALS: BP 141/72
[2016-12-28] MEDS: MONTELUKAST SODIUM 10 MG TABLET. PO SCH (20:21)
[2016-12-28] MEDS: ATORVASTATIN CALCIUM 40 MG TABLET. PO SCH (20:21)
[2016-12-28] MEDS: BENZONATATE 100 MG CAPSULE. PO PRN (20:22)
[2016-12-28 23:00] VITALS: BP 132/78
[2016-12-29 03:07] VITALS: BP 134/64
[2016-12-29 04:31] LABS: HEMOGLOBIN 10.2 g/dL (12.0-15.5); RED BLOOD COUNT 3.57 x10^6/uL (3.50-5.40); RED CELL DISTRIBUTION WIDTH 16.9 % (11.5-14.5); WHITE BLOOD COUNT 12.4 x10^3/uL (4.0-11.0)
[2016-12-29] MEDS: PANTOPRAZOLE 40 MG TABLET.DR. PO SCH (04:42)
[2016-12-29 04:48] LABS: CALCIUM 8.7 mg/dL (8.5-10.1); CREATININE 3.5 mg/dL (0.6-1.0); GFR 13.3; POTASSIUM 4.5 mmol/L (3.5-5.1)
[2016-12-29] MEDS: IPRATRPIUM/ALBUTEROL 0.5/2.5MG 3 ML NEBU. NEB SCH ×2 (05:10→11:36)
[2016-12-29] MEDS: BUDESONIDE 0.5 MG/2 ML NEBU. NEB SCH (05:10)
[2016-12-29 07:40] VITALS: BP 152/75
--- NOTE | 2016-12-29 08:56 | PDOC ---
PULMONARY PROGRESS NOTES Subjective pt feels better Vitals Vital Signs Date Time Temp Pulse Resp B/P (MAP) Pulse Ox O2 Delivery O2 Flow Rate FiO2 12/29/16 08:20 93 Room Air 12/29/16 07:40 97.5 86 18 152/75 (100) 97.5 12/28/16 07:34 2.0 ROS: No Nausea, No Chest Pain, No Abdominal Pain, No Increase Cough General: Alert, No acute distress HEENT: Other Lungs: Clear Cardiovascular: S1, S2 Abdomen: Soft, Non-tender Neuro Exam: Alert Extremities: No Edema Skin: Warm Labs Laboratory Tests Test 12/28/16 02:55 12/29/16 03:05 White Blood Count 16.1 x10^3/uL (4.0-11.0) 12.4 x10^3/uL (4.0-11.0) Red Blood Count 3.42 x10^6/uL (3.50-5.40) 3.57 x10^6/uL (3.50-5.40) Hemoglobin 9.9 g/dL (12.0-15.5) 10.2 g/dL (12.0-15.5) Hematocrit 31.0 % (36.0-47.0) 32.0 % (36.0-47.0) Mean Corpuscular Volume 91 fL (79-100) 90 fL (79-100) Mean Corpuscular Hemoglobin 29 pg (25-35) 29 pg (25-35) Mean Corpuscular Hemoglobin Concent 32 g/dL (31-37) 32 g/dL (31-37) Red Cell Distribution Width 16.3 % (11.5-14.5) 16.9 % (11.5-14.5) Platelet Count 300 x10^3/uL (140-400) 312 x10^3/uL (140-400) Sodium Level 135 mmol/L (136-145) 139 mmol/L (136-145) Potassium Level 5.0 mmol/L (3.5-5.1) 4.5 mmol/L (3.5-5.1) Chloride Level 102 mmol/L (98-107) 104 mmol/L (98-107) Carbon Dioxide Level 20 mmol/L (21-32) 23 mmol/L (21-32) Anion Gap 13 (6-14) 12 (6-14) Blood Urea Nitrogen 76 mg/dL (7-20) 75 mg/dL (7-20) Creatinine 3.7 mg/dL (0.6-1.0) 3.5 mg/dL (0.6-1.0) Estimated GFR (Cockcroft-Gault) 12.5 13.3 Glucose Level 165 mg/dL (70-99) 91 mg/dL (70-99) Calcium Level 8.9 mg/dL (8.5-10.1) 8.7 mg/dL (8.5-10.1) Laboratory Tests Test 12/29/16 03:05 White Blood Count 12.4 x10^3/uL (4.0-11.0) Red Blood Count 3.57 x10^6/uL (3.50-5.40) Hemoglobin 10.2 g/dL (12.0-15.5) Hematocrit 32.0 % (36.0-47.0) Mean Corpuscular Volume 90 fL (79-100) Mean Corpuscular Hemoglobin 29 pg (25-35) Mean Corpuscular Hemoglobin Concent 32 g/dL (31-37) Red Cell Distribution Width 16.9 % (11.5-14.5) Platelet Count 312 x10^3/uL (140-400) Sodium Level 139 mmol/L (136-145) Potassium Level 4.5 mmol/L (3.5-5.1) Chloride Level 104 mmol/L (98-107) Carbon Dioxide Level 23 mmol/L (21-32) Anion Gap 12 (6-14) Blood Urea Nitrogen 75 mg/dL (7-20) Creatinine 3.5 mg/dL (0.6-1.0) Estimated GFR (Cockcroft-Gault) 13.3 Glucose Level 91 mg/dL (70-99) Calcium Level 8.7 mg/dL (8.5-10.1) Medications Active Scripts Medications Dose Route/Sig Max Daily Dose Days Date Category Dose Instructions Chlorthalidone 25 Mg Tablet 25 Mg PO 12/25/16 Reported Potassium Citrate Er (Potassium Citrate) 15 Meq Tablet.er 20 Meq PO EVERY OTHER DAY 12/25/16 Reported Losartan Potassium 50 Mg Tablet 50 Mg PO DAILY 12/25/16 Reported Prednisone 10 Mg Tablet 10 Mg PO UD 04/11/15 Rx Take 3 tablets by mouth twice a day for 3 days, then take 2 tablets by mouth twice a day for 3 days, then take 1 tablet by mouth twice a day for 3 days, then take 1 tablet by mouth daily x 3 days, then stop. Protonix (Pantoprazole Sodium) 40 Mg Tablet 40 Mg PO DAILYAC 04/11/15 Rx Singulair Tablet (Montelukast Sodium) 10 Mg Tablet 10 Mg PO QHS 04/11/15 Rx Levaquin (Levofloxacin) 250 Mg Tablet 250 Mg PO DAILY06 04/11/15 Rx [Ipratropium/Albuterol Sulfate] 3 ML Nebu 3 Ml NEB RTQID 04/11/15 Rx Atorvastatin Calcium 40 Mg Tablet 40 Mg PO HS 04/07/15 Reported Vitamin D (Cholecalciferol (Vitamin D3)) 1,000 Unit Capsule 1,000 Units PO BID 03/30/15 Reported Vitamin C (Ascorbic Acid) 500 Mg Tablet 500 Mg PO DAILY 03/30/15 Reported Ventolin Hfa Inhaler (Albuterol Sulfate) 18 Gm Hfa.aer.ad 2 Puff INH Q4HRS PRN 03/30/15 Reported Impression . IMPRESSION: 1. Acute respiratory failure, multifactorial in etiology. 2. Acute exacerbation of chronic obstructive pulmonary disease. 3. Acute kidney injury. 4. Chronic kidney disease. 5. Obesity, snoring and excessive daytime sleepiness, probable obstructive sleep apnea-hypopnea syndrome. 6. Smoker. 7. allergic rhinitis Plan . 1. Home in am ok taper pred 2. Bronchodilator. 3. Pulmicort. 4. d/c smoking 5. outpt sleep study CAMRON SIMON MD Dec 29, 2016 08:56
[2016-12-29] MEDS: DOXYCYCLINE HYCLATE 100 MG TABLET PO SCH (08:58)
[2016-12-29] MEDS: CHOLECALCIFEROL (VITAMIN D3) 1,000 UNIT TABLET PO SCH (08:58)
[2016-12-29] MEDS: CHLORTHALIDONE 25 MG TABLET. PO SCH (08:58)
[2016-12-29] MEDS: ASCORBIC ACID 500 MG TABLET PO SCH (08:58)
[2016-12-29] MEDS: LOSARTAN POTASSIUM 50 MG TABLET. PO SCH (08:59)
[2016-12-29] MEDS ORDERED: predniSONE 20 MG TABLET PO SCH (09:00)
[2016-12-29 10:30] VITALS: BP 137/66
--- NOTE | 2016-12-29 12:13 | PDOC3 ---
Discharge Summary* Date of Admission: Dec 25, 2016 Date of Discharge: Dec 29, 2016 Final Diagnosis 1. Acute respiratory failure, multifactorial in etiology. 2. Acute exacerbation of chronic obstructive pulmonary disease with bronchitis 3. Acute kidney injury. 4. Chronic kidney disease. 5. Obesity, snoring and excessive daytime sleepiness, probable obstructive sleep apnea-hypopnea syndrome. 6. Smoker. 7. allergic rhinitis 8. HTN 9.leukocytosis CONSULTS pulmonary Procedures CXR Brief Hospital Course Ms. Delgado is a 61 old [sex] who presented with [ ] Disposition/Orders: D/C to Home CONDITION AT DISCHARGE: Improved Diet: Cardiac, other (stop smoking) Scheduled Ascorbic Acid (Vitamin C), 500 MG PO DAILY, (Reported) Atorvastatin Calcium (Atorvastatin Calcium), 40 MG PO HS, (Reported) Cholecalciferol (Vitamin D3) (Vitamin D), 1,000 UNITS PO BID, (Reported) Doxycycline Hyclate (Doxycycline Hyclate), 100 MG PO BID Fluticasone Propionate (Flovent 110MCG Hfa), 2 PUFF IH BID Losartan Potassium (Losartan Potassium), 50 MG PO DAILY, (Reported) Montelukast Sodium (Singulair Tablet), 10 MG PO QHS Pantoprazole Sodium (Protonix), 40 MG PO DAILYAC Potassium Citrate (Potassium Citrate Er), 20 MEQ PO every other day, (Reported) Prednisone (Prednisone), 40 MG PO DAILY Tiotropium Br/Olodaterol HCl (Stiolto Respimat Inhal [place]), 4 GM IH DAILY [Ipratropium/Albuterol Sulfate], 3 ML NEB RTQID Scheduled PRN Albuterol Sulfate (Ventolin Hfa Inhaler), 2 PUFF INH Q4HRS PRN for SHORTNESS OF BREATH, (Reported) Benzonatate (Benzonatate), 100 MG PO PRN Q8HRS PRN for COUGH Miscellaneous Medications Chlorthalidone (Chlorthalidone), 25 MG PO, (Reported) Discontinued Medications Budesonide/Formoterol Fumarate (Symbicort 160-4.5 Mcg Inhaler), 2 PUFF IH BID, ( Reported) Levofloxacin (Levaquin), 250 MG PO DAILY06 Prednisone (Prednisone), 10 MG PO UD FOLLOW UP APPOINTMENT: do sleep study out pt f/u office 1 week Time Spent Total time spent with patient [] minutes for coordination of care, counseling, and education. JEAN PAUL YEN MD Dec 29, 2016 12:13
--- NOTE | 2016-12-29 12:13 | PDOC ---
SUBJECTIVE Subjective feels better and breathing better OBJECTIVE Vital Signs Vital Signs Date Time Temp Pulse Resp B/P (MAP) Pulse Ox O2 Delivery O2 Flow Rate FiO2 12/29/16 11:36 93 Room Air 12/29/16 10:30 97.7 84 18 137/66 (89) 93 Room Air 97.7 12/29/16 08:59 86 152/75 12/29/16 08:20 93 Room Air 12/29/16 07:40 97.5 86 18 152/75 (100) 94 Room Air 97.5 12/29/16 05:13 92 Room Air 12/29/16 05:10 92 Room Air 12/29/16 03:07 97.5 85 18 134/64 (87) 93 Room Air 97.5 12/28/16 23:36 94 Room Air 12/28/16 23:00 97.3 88 19 132/78 (96) 91 Room Air 97.3 12/28/16 20:00 Room Air 12/28/16 19:55 94 Room Air 12/28/16 19:54 94 Room Air 12/28/16 19:00 97.1 76 19 141/72 (95) 94 Room Air 97.1 12/28/16 15:33 97.9 78 18 128/69 (88) 93 Room Air 97.9 12/28/16 15:18 94 Room Air I & O Intake and Output 12/29/16 07:00 Intake Total 4970 ml Balance 4970 ml Intake Oral 4970 ml # Voids 6 PHYSICAL EXAM Physical Exam lungs clearer heart RRR abd soft ext no edema ASSESSMENT/PLAN Assessment/Plan WBC down , feels better, home today on ABx and taper steroids, sleep study out pt Problems: COMMENT Lab Laboratory Tests Test 12/29/16 03:05 White Blood Count 12.4 x10^3/uL (4.0-11.0) Red Blood Count 3.57 x10^6/uL (3.50-5.40) Hemoglobin 10.2 g/dL (12.0-15.5) Hematocrit 32.0 % (36.0-47.0) Mean Corpuscular Volume 90 fL (79-100) Mean Corpuscular Hemoglobin 29 pg (25-35) Mean Corpuscular Hemoglobin Concent 32 g/dL (31-37) Red Cell Distribution Width 16.9 % (11.5-14.5) Platelet Count 312 x10^3/uL (140-400) Sodium Level 139 mmol/L (136-145) Potassium Level 4.5 mmol/L (3.5-5.1) Chloride Level 104 mmol/L (98-107) Carbon Dioxide Level 23 mmol/L (21-32) Anion Gap 12 (6-14) Blood Urea Nitrogen 75 mg/dL (7-20) Creatinine 3.5 mg/dL (0.6-1.0) Estimated GFR (Cockcroft-Gault) 13.3 Glucose Level 91 mg/dL (70-99) Calcium Level 8.7 mg/dL (8.5-10.1) JEAN PAUL YEN MD Dec 29, 2016 12:13
[2016-12-29] MEDS ORDERED: TIOT4MIS3 IH (12:21)
[2016-12-29] MEDS ORDERED: DOXY100T PO (12:21)
[2016-12-29] MEDS ORDERED: PRED20TA PO (12:21)
[2016-12-29] MEDS ORDERED: FLUT12AE IH (12:21)
[2016-12-29] MEDS ORDERED: BENZ100C15 PO (12:21)
== END 2016-12-29 14:10 | disposition home or self-care (01) | DRG 189 ==
LOC: ER 14:15 → 5 NORTH 16:30
PROVIDERS: ADMIT Internal Medicine; ATTEND Internal Medicine
DX: J96.00 Acute respiratory failure, unspecified whether with hypoxia or hypercapnia (principal); J44.1 Chronic obstructive pulmonary disease with (acute) exacerbation; N17.9 Acute kidney failure, unspecified; E66.9 Obesity, unspecified; F17.200 Nicotine dependence, unspecified, uncomplicated; G47.33 Obstructive sleep apnea (adult) (pediatric); I12.9 Hypertensive chronic kidney disease with stage 1 through stage 4 chronic kidney disease, or unspecified chronic kidney disease; J30.9 Allergic rhinitis, unspecified; N18.3 Chronic kidney disease, stage 3 (moderate); Z82.49 Family history of ischemic heart disease and other diseases of the circulatory system; D63.1 Anemia in chronic kidney disease; D72.829 Elevated white blood cell count, unspecified
CPT/HCPCS: 36415; 71010; 80048; 80053; 83880; 84484; 85007; 85027; 93306; 94250; 94640; 94760; 96374; J1650; J2920; J2930; J7512; J7620; 99285-25

== ENCOUNTER → 2017-02-05 | Outpatient (CLI) | payer BC ==
[~2017-02-05] MED LIST changes: +BENZ100C15 PO; +DOXY100T PO; +FLUT12AE IH; +LOSA50TA6 PO; +POTA15TA9 PO; +PRED20TA PO; +TIOT4MIS3 IH
[2017-02-05 08:41] LABS: BASO # 0.1 x10^3/uL (0.0-0.2); BASO % 1 % (0-3); EOS % 2 % (0-3); HEMATOCRIT 31.2 % (36.0-47.0); HEMOGLOBIN 10.4 g/dL (12.0-15.5); LYMPH # 1.4 x10^3/uL (1.0-4.8); LYMPH % 13 % (24-48); MEAN CORPUSCULAR HEMOGLOBIN 29 pg (25-35); MEAN CORPUSCULAR HGB CONC 33 g/dL (31-37); MEAN CORPUSCULAR VOLUME 88 fL (79-100); MONO % 7 % (0-9); NEUT % 78 % (31-73); PLATELET COUNT 316 x10^3/uL (140-400); RED BLOOD COUNT 3.55 x10^6/uL (3.50-5.40); RED CELL DISTRIBUTION WIDTH 16.4 % (11.5-14.5); WHITE BLOOD COUNT 10.9 x10^3/uL (4.0-11.0)
[2017-02-05 08:59] LABS: ALBUMIN 2.7 g/dL (3.4-5.0); ALBUMIN/GLOBULIN RATIO 0.7 (1.0-1.7); CALCIUM 8.7 mg/dL (8.5-10.1); CREATININE 3.4 mg/dL (0.6-1.0); GFR 13.7; PHOSPHORUS 4.1 mg/dL (2.6-4.7); POTASSIUM 4.2 mmol/L (3.5-5.1); TOTAL BILIRUBIN 0.2 mg/dL (0.2-1.0); TOTAL PROTEIN 6.7 g/dL (6.4-8.2); URIC ACID 7.2 mg/dL (2.6-6.0)
[2017-02-05 12:33] LABS: BILIRUBIN,URINE NEGATIVE (NEG); GLUCOSE,URINE NEGATIVE (NEG); NITRITE,URINE NEGATIVE (NEG); PROTEIN,URINE >=300 mg/dL (NEG-TRACE); UROBILINOGEN,URINE 0.2 mg/dL (0.2 mg/dL)
[2017-02-05 12:48] LABS: BACTERIA,URINE MODERATE /HPF (0-FEW); RBC,URINE >40 /HPF (0-2); SQUAMOUS EPITHELIAL CELL,UR MOD /LPF; WBC,URINE TNTC /HPF (0-4)
[2017-02-05 22:14] LABS: UR PROTEIN RD 465.4 mg/dL (Not Estab.)
[2017-02-06 01:13] LABS: VITAMIN D25(OH)TOTAL 19.9 ng/mL (30.0-100.0)
[2017-02-06 03:23] LABS: PTH INTACT 152 pg/mL (15-65)
== END | disposition home or self-care (01) ==
LOC: LAB 08:04
PROVIDERS: ATTEND Internal Medicine Nephrology
DX: I12.9 Hypertensive chronic kidney disease with stage 1 through stage 4 chronic kidney disease, or unspecified chronic kidney disease (principal); N18.3 Chronic kidney disease, stage 3 (moderate); R60.9 Edema, unspecified; R80.9 Proteinuria, unspecified; Z68.41 Body mass index [BMI] 40.0-44.9, adult
CPT/HCPCS: 36415; 80053; 81001; 82306; 82570; 83970; 84100; 84156; 84443; 84550; 85027; 87086

== ENCOUNTER → 2017-03-08 | Outpatient (CLI) | payer BC ==
--- NOTE | 2017-03-08 10:35 | KCIC ---
Exam performed: Bone densitometry. History: History of postmenopausal, osteoporosis COMPARISON: None available Findings: Bone Densitometry was performed with dual photon absorption of the lumbar spine and proximal femur. Lumbar Spine: Bone density is 1.025g/cm2 for L1-L4. T-Score is -0.2 Left femur: Bone density is 0.670g/cm2. T-Score is -2.2 Impression: 1. Osteopenia left hip. Electronically signed by: Nghia Martino MD (03/08/2017 10:32 AM) [id number]
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
== END | disposition home or self-care (01) ==
LOC: KCIC DEXA 09:38
PROVIDERS: ATTEND Physician Assistant Surgical
DX: Z12.31 Encounter for screening mammogram for malignant neoplasm of breast (principal); Z13.820 Encounter for screening for osteoporosis; M81.0 Age-related osteoporosis without current pathological fracture; M85.88 Other specified disorders of bone density and structure, other site; Z78.0 Asymptomatic menopausal state
CPT/HCPCS: 77080; G0202; 77067

== ENCOUNTER → 2017-03-17 | Outpatient (CLI) | payer BC ==
[2017-03-17 09:15] LABS: BASO # 0.1 x10^3/uL (0.0-0.2); BASO % 1 % (0-3); EOS % 3 % (0-3); LYMPH # 1.2 x10^3/uL (1.0-4.8); LYMPH % 13 % (24-48); MEAN CORPUSCULAR HEMOGLOBIN 29 pg (25-35); MEAN CORPUSCULAR HGB CONC 32 g/dL (31-37); MEAN CORPUSCULAR VOLUME 89 fL (79-100); MONO % 8 % (0-9); NEUT % 75 % (31-73); PLATELET COUNT 306 x10^3/uL (140-400); RED BLOOD COUNT 3.81 x10^6/uL (3.50-5.40); RED CELL DISTRIBUTION WIDTH 16.4 % (11.5-14.5); WHITE BLOOD COUNT 9.4 x10^3/uL (4.0-11.0)
[2017-03-17 09:22] LABS: ALBUMIN 3.3 g/dL (3.4-5.0); CALCIUM 9.5 mg/dL (8.5-10.1); CREATININE 3.6 mg/dL (0.6-1.0); GFR 12.8; MAGNESIUM 1.8 mg/dL (1.8-2.4); PHOSPHORUS 4.4 mg/dL (2.6-4.7); POTASSIUM 4.5 mmol/L (3.5-5.1)
[2017-03-17 18:16] LABS: PTH INTACT 107 pg/mL (15-65)
== END | disposition home or self-care (01) ==
LOC: LAB 08:27 → EDSTATUS 08:48
PROVIDERS: ATTEND Nurse Practitioner Family
DX: I12.9 Hypertensive chronic kidney disease with stage 1 through stage 4 chronic kidney disease, or unspecified chronic kidney disease (principal); N18.3 Chronic kidney disease, stage 3 (moderate); N17.9 Acute kidney failure, unspecified; R60.9 Edema, unspecified; R80.9 Proteinuria, unspecified; Z68.42 Body mass index [BMI] 45.0-49.9, adult
CPT/HCPCS: 36415; 80069; 83735; 83970; 85025

== ENCOUNTER → 2017-04-26 | Outpatient (CLI) | payer BC ==
[~2017-04-26] MED LIST changes: +BENZ-8 PO; -BENZ100C15 PO
[2017-04-26 10:12] LABS: CALCIUM 9.5 mg/dL (8.5-10.1); GFR 11.3; PHOSPHORUS 4.9 mg/dL (2.6-4.7); POTASSIUM 4.7 mmol/L (3.5-5.1)
== END | disposition home or self-care (01) ==
LOC: LAB 09:29
PROVIDERS: ATTEND Nurse Practitioner Family
DX: N18.4 Chronic kidney disease, stage 4 (severe) (principal); Z68.41 Body mass index [BMI] 40.0-44.9, adult
CPT/HCPCS: 36415; 80069

== ENCOUNTER → 2017-06-25 | Outpatient (CLI) | payer BC ==
[2017-06-25 08:51] LABS: BASO # 0.1 x10^3/uL (0.0-0.2); BASO % 1 % (0-3); EOS % 6 % (0-3); HEMATOCRIT 36.8 % (36.0-47.0); HEMOGLOBIN 11.6 g/dL (12.0-15.5); LYMPH # 1.6 x10^3/uL (1.0-4.8); LYMPH % 14 % (24-48); MEAN CORPUSCULAR HEMOGLOBIN 28 pg (25-35); MEAN CORPUSCULAR HGB CONC 31 g/dL (31-37); MEAN CORPUSCULAR VOLUME 88 fL (79-100); MONO % 8 % (0-9); NEUT % 71 % (31-73); PLATELET COUNT 321 x10^3/uL (140-400); RED BLOOD COUNT 4.16 x10^6/uL (3.50-5.40); RED CELL DISTRIBUTION WIDTH 16.8 % (11.5-14.5)
[2017-06-25 09:04] LABS: CALCIUM 9.1 mg/dL (8.5-10.1); CREATININE 3.9 mg/dL (0.6-1.0); GFR 11.7; MAGNESIUM 1.8 mg/dL (1.8-2.4); PHOSPHORUS 5.9 mg/dL (2.6-4.7); POTASSIUM 4.4 mmol/L (3.5-5.1)
[2017-06-26 16:11] LABS: PTH INTACT 134 pg/mL (15-65)
== END | disposition home or self-care (01) ==
LOC: LAB 08:08
PROVIDERS: ATTEND Nurse Practitioner Family
DX: N18.5 Chronic kidney disease, stage 5 (principal); Z68.41 Body mass index [BMI] 40.0-44.9, adult
CPT/HCPCS: 36415; 80069; 83735; 83970; 85025

== ENCOUNTER → 2017-08-27 | Outpatient (CLI) | payer BC, MEDICARE ==
[2017-08-27 10:37] LABS: ADD MAN DIFF? NO
[2017-08-27 10:48] LABS: BASO # 0.1 x10^3/uL (0.0-0.2); BASO % 1 % (0-3); EOS # 0.3 x10^3/uL (0.0-0.7); EOS % 3 % (0-3); HEMATOCRIT 28.5 % (36.0-47.0); HEMOGLOBIN 9.2 g/dL (12.0-15.5); LYMPH # 1.5 x10^3/uL (1.0-4.8); LYMPH % 14 % (24-48); MEAN CORPUSCULAR HEMOGLOBIN 29 pg (25-35); MEAN CORPUSCULAR HGB CONC 32 g/dL (31-37); MEAN CORPUSCULAR VOLUME 88 fL (79-100); MONO # 0.9 x10^3/uL (0.0-1.1); MONO % 8 % (0-9); NEUT # 8.1 x10^3uL (1.8-7.7); NEUT % 75 % (31-73); PLATELET COUNT 342 x10^3/uL (140-400); RED BLOOD COUNT 3.22 x10^6/uL (3.50-5.40); RED CELL DISTRIBUTION WIDTH 16.4 % (11.5-14.5); WHITE BLOOD COUNT 10.9 x10^3/uL (4.0-11.0)
[2017-08-27 11:00] LABS: ALBUMIN 2.9 g/dL (3.4-5.0); ANION GAP 15 (6-14); BLOOD UREA NITROGEN 55 mg/dL (7-20); CALCIUM 9.7 mg/dL (8.5-10.1); CARBON DIOXIDE 19 mmol/L (21-32); CHLORIDE 107 mmol/L (98-107); CREATININE 4.8 mg/dL (0.6-1.0); GFR 9.2; GLUCOSE 81 mg/dL (70-99); MAGNESIUM 1.8 mg/dL (1.8-2.4); PHOSPHORUS 5.5 mg/dL (2.6-4.7); POTASSIUM 4.5 mmol/L (3.5-5.1); SODIUM 141 mmol/L (136-145)
[2017-08-27 21:12] LABS: CREAT CLEAR 24 17 mL/min (88-128); CREATININE UR 24HR 1127 mg/24 hr (800-1800); TOTAL SERUM CREATININE 4.71 mg/dL (0.57-1.00); TOTAL URINE CREATININE 50.1 mg/dL (Not Estab.); eGFR AFRICAN-AMER 11 (>59); eGFR NON AFRICAN-AMER 9 (>59)
[2017-08-27 23:11] LABS: PROTEIN 24 HR UR 9392 mg/24 hr (30-150); UR PROTEIN 417.4 mg/dL (Not Estab.)
[2017-08-28 11:13] LABS: CALCIUM PTH 9.5 mg/dL (8.7-10.3); PHOSPHORUS PTH 5.6 mg/dL (2.5-4.5); PTH INTACT 151 pg/mL (15-65); eGFR AFRICAN-AMER 11 (>59); eGFR NON AFRICAN-AMER 10 (>59)
== END | disposition home or self-care (01) ==
LOC: LAB 08:10
DX: I12.9 Hypertensive chronic kidney disease with stage 1 through stage 4 chronic kidney disease, or unspecified chronic kidney disease (principal); N18.5 Chronic kidney disease, stage 5
CPT/HCPCS: 36415; 80069; 82575; 83735; 83970; 84156; 85025

== ENCOUNTER → 2017-09-07 | Outpatient (CLI) | payer BC, MEDICARE ==
[2017-09-08 00:15] LABS: HCV ANTIBODY <0.1 s/co ratio (0.0-0.9); HEP B SURFACE ABDY Non Reactive (.); HEP B SURFACE AG Negative (Negative)
== END | disposition home or self-care (01) ==
LOC: LAB 08:59
DX: I12.9 Hypertensive chronic kidney disease with stage 1 through stage 4 chronic kidney disease, or unspecified chronic kidney disease (principal); N18.5 Chronic kidney disease, stage 5; I70.0 Atherosclerosis of aorta; R80.9 Proteinuria, unspecified; R91.8 Other nonspecific abnormal finding of lung field; R60.9 Edema, unspecified; Z68.41 Body mass index [BMI] 40.0-44.9, adult
CPT/HCPCS: 36415; 71046; 86706; 86803; 87340

== ENCOUNTER 2017-12-21 07:59 | Outpatient (CLI) | payer MEDICARE ==
[2017-12-21 08:42] LABS: ADD MAN DIFF? NO
[2017-12-21 08:49] LABS: BASO # 0.1 x10^3/uL (0.0-0.2); BASO % 1 % (0-3); EOS # 0.2 x10^3/uL (0.0-0.7); EOS % 3 % (0-3); HEMATOCRIT 39.8 % (36.0-47.0); HEMOGLOBIN 13.2 g/dL (12.0-15.5); LYMPH # 1.1 x10^3/uL (1.0-4.8); LYMPH % 15 % (24-48); MEAN CORPUSCULAR HEMOGLOBIN 31 pg (25-35); MEAN CORPUSCULAR HGB CONC 33 g/dL (31-37); MEAN CORPUSCULAR VOLUME 94 fL (79-100); MONO # 0.6 x10^3/uL (0.0-1.1); MONO % 8 % (0-9); NEUT # 5.6 x10^3uL (1.8-7.7); NEUT % 74 % (31-73); PLATELET COUNT 262 x10^3/uL (140-400); RED BLOOD COUNT 4.25 x10^6/uL (3.50-5.40); RED CELL DISTRIBUTION WIDTH 17.7 % (11.5-14.5); WHITE BLOOD COUNT 7.5 x10^3/uL (4.0-11.0)
[2017-12-21 08:52] LABS: ANION GAP 11 (6-14); BLOOD UREA NITROGEN 33 mg/dL (7-20); CALCIUM 9.7 mg/dL (8.5-10.1); CARBON DIOXIDE 26 mmol/L (21-32); CHLORIDE 101 mmol/L (98-107); CREATININE 4.2 mg/dL (0.6-1.0); GFR 10.7; GLUCOSE 92 mg/dL (70-99); POTASSIUM 4.3 mmol/L (3.5-5.1); SODIUM 138 mmol/L (136-145)
[2017-12-21] MEDS ORDERED: IODIXANOL 320 MG/ML 100 ML VIAL. (09:01)
[2017-12-21] MEDS ORDERED: LIDOCAINE WITH 8.4% SOD BICARB 3 ML DISP.SYRIN. (09:02)
[2017-12-21 09:03] LABS: INR 1.1 (0.8-1.1); PARTIAL THROMBOPLASTIN TIME 28 SEC (24-38); PROTHROMBIN TIME PATIENT 13.3 SEC (11.7-14.0)
[2017-12-21] MEDS ORDERED: CONTRAST GIVEN. MC (09:30)
[2017-12-21] MEDS ORDERED: HEPARIN for IV BOLUS 10,000 UNIT/10 ML VIAL. (09:35)
[2017-12-21] MEDS: IODIXANOL 320 MG/ML 100 ML VIAL. IART (10:02)
[2017-12-21] MEDS: fentaNYL PF VIAL 100 MCG/2 ML VIAL IV (10:03)
[2017-12-21] MEDS: LIDOCAINE WITH 8.4% SOD BICARB 3 ML DISP.SYRIN. IJ (10:03)
[2017-12-21] MEDS: MIDAZOLAM HCL/PF 2 MG/2 ML VIAL. IV (10:03)
[2017-12-21] MEDS: HEPARIN for IV BOLUS 10,000 UNIT/10 ML VIAL. IV (10:10)
== END 2017-12-21 11:35 | disposition home or self-care (01) ==
LOC: INTRAD 07:59
DX: T82.858A Stenosis of other vascular prosthetic devices, implants and grafts, initial encounter (principal); J44.9 Chronic obstructive pulmonary disease, unspecified; I12.0 Hypertensive chronic kidney disease with stage 5 chronic kidney disease or end stage renal disease; N18.6 End stage renal disease; Z79.01 Long term (current) use of anticoagulants; Z98.890 Other specified postprocedural states; F17.200 Nicotine dependence, unspecified, uncomplicated; Y83.2 Surgical operation with anastomosis, bypass or graft as the cause of abnormal reaction of the patient, or of later complication, without mention of misadventure at the time of the procedure; Y92.89 Other specified places as the place of occurrence of the external cause
CPT/HCPCS: 36415; 36902; 76937; 80048; 85025; 85610; 85730; 99152; 99153; C1725; C1769; C1892; C1894; J1644; J2250; J3010

== ENCOUNTER → 2018-06-21 | Outpatient (CLI) | payer MEDICARE ==
[2017-12-21 10:45] VITALS: BP 158/83
[~2018-06-21] MED LIST changes: +AMLO10TA6 PO; -CHLO25TA PO; +CHLO25TA10 PO; +FERR325T14 PO; +LOSA-73 PO; -LOSA50TA6 PO; +torsemide PO
--- NOTE | 2018-06-21 17:08 | KCIC ---
Bilateral digital screening mammograms: Reason for examination: Routine screening. Comparison is made to previous studies dated 03/08/2017 and 03/06/2016. Interpretation was made with the benefit of CAD. The skin and nipples show no abnormalities. No abnormal axillary lymph nodes are seen. The breast parenchyma shows scattered fibroglandular density. (Breast density: Category B.) There are no dominant masses, suspicious calcifications or architectural distortions. Benign appearing calcifications are present. Impression: No evidence of malignancy. Recommend routine screening. BI-RADS category 2: Benign "Our facility is accredited by the [employer] Mammography Program." This patient's information has been entered into a reminder system for the patient to be notified with the results of her examination and a target date for the next mammogram. Electronically signed by: Keisha Eden MD (06/21/2018 5:04 PM) [id number]
== END | disposition home or self-care (01) ==
LOC: KCIC MAMMO 10:50
PROVIDERS: ATTEND Physician Assistant Surgical
DX: Z12.31 Encounter for screening mammogram for malignant neoplasm of breast (principal)
CPT/HCPCS: 77067

== ENCOUNTER 2018-07-26 07:37 | Inpatient (IN) | payer MEDICARE ==
[~2018-07-26] VITALS: Ht 154.9 cm; Wt 96.6 kg
[~2018-07-26 07:37] MED LIST changes: -AMLO10TA6 PO; +AMLO10TA8 PO; +LOSA100T14 PO; +MONT10TA49 PO; -MONT10TA6 PO; -PANT40TA3 PO; +PANT40TA77 PO
[2018-07-26] MEDS ORDERED: ALBUTEROL SULFATE 2.5 MG/3 ML NEBU. CONT NEB ONE (07:45)
[2018-07-26] MEDS ORDERED: methylPREDNISolone SOD SUCC PF 125 MG/2 ML VIAL. IV ONE (07:45)
--- NOTE | 2018-07-26 07:57 | PHYS DOC ---
Past Medical History Past Medical History: Asthma, COPD, High Cholesterol, Hypertension, Renal Failure Past Surgical History: , Other Additional Past Surgical Histo: cataract; L upper arm fistula Alcohol Use: None Drug Use: None Adult General Chief Complaint Chief Complaint: SHORTNESS OF BREATH HPI HPI Patient is a 63 year old f biba with cc of sob while on dialysis had an hour left. has had uri symptoms the last few days had increasing sob while on dialyssi sat 88 on nc on medic arrival, improveda fter nebs up to mid 90s no cp no fever cough with yellow sputum. Review of Systems Review of Systems Constitutional: Denies fever or chills [] Eyes: Denies change in visual acuity, redness, or eye pain [] HENT: Respiratory Cardiovascular: No additional information not addressed in HPI [] Musculoskeletal: Denies back pain or joint pain [] Integument: Denies rash or skin lesions [] Neurologic: Denies headache, focal weakness or sensory changes [] Endocrine: Denies polyuria or polydipsia [] All other systems were reviewed and found to be within normal limits, except as documented in this note. Current Medications Current Medications Current Medications Medications (Trade) Dose Ordered Sig/Aki Start Time Stop Time Status Last Admin Dose Admin Albuterol Sulfate (Ventolin Neb Soln) 10 mg 1X ONCE 07/26/18 07:45 07/26/18 07:51 DC 07/26/18 08:13 10 MG Doxycycline Hyclate 100 mg/ Dextrose 100 ml @ 50 mls/hr 1X ONCE 07/26/18 08:00 07/26/18 09:59 DC 07/26/18 08:24 50 MLS/HR Methylprednisolone Sodium Succinate (SOLU-Medrol 125MG VIAL) 125 mg 1X ONCE 07/26/18 07:45 07/26/18 07:51 DC 07/26/18 08:23 125 MG Allergies Allergies Allergies Coded Allergies Type Severity Reaction Last Updated Verified No Known Drug Allergies 07/19/18 No Physical Exam Physical Exam Constitutional: Well developed, well nourished, no acute distress, non-toxic appearance. [] HENT: Normocephalic, atraumatic, bilateral external ears normal, oropharynx moist, no oral exudates, nose normal. [] Eyes: PERRLA, EOMI, conjunctiva normal, no discharge. [] Neck: Normal range of motion, no tenderness, supple, no stridor. [] Cardiovascular:Heart rate regular rhythm, no murmur [] Lungs & Thora: coarse b/l breath sounds with wheezing and increased respiratory effort able to speak full sentecnes Abdomen: Bowel sounds normal, soft, no tenderness, no masses, no pulsatile masses. [] Skin: Warm, dry, no erythema, no rash. [] Back: No tenderness, no CVA tenderness. [] Extremities: No tenderness, no cyanosis, no clubbing, ROM intact, 1 plus symmetric edema Neurologic: Alert and oriented X 3, normal motor function, normal sensory function, no focal deficits noted. [] Psychologic: Affect normal, judgement normal, mood normal. [] Current Patient Data Vital Signs Vital Signs Date Time Temp Pulse Resp B/P (MAP) Pulse Ox O2 Delivery O2 Flow Rate FiO2 07/26/18 08:18 92 Nasal Cannula 5.0 07/26/18 07:39 98.5 102 24 158/83 (108) 98.5 Lab Values Laboratory Tests Test 07/26/18 08:10 07/26/18 09:05 White Blood Count 8.7 x10^3/uL (4.0-11.0) Red Blood Count 3.19 x10^6/uL (3.50-5.40) L Hemoglobin 11.9 g/dL (12.0-15.5) L Hematocrit 34.3 % (36.0-47.0) L Mean Corpuscular Volume 106 fL (79-100) H Mean Corpuscular Hemoglobin 37 pg (25-35) H Mean Corpuscular Hemoglobin Concent 35 g/dL (31-37) Red Cell Distribution Width 18.6 % (11.5-14.5) H Platelet Count 346 x10^3/uL (140-400) Neutrophils (%) (Auto) 82 % (31-73) H Lymphocytes (%) (Auto) 8 % (24-48) L Monocytes (%) (Auto) 5 % (0-9) Eosinophils (%) (Auto) 5 % (0-3) H Basophils (%) (Auto) 0 % (0-3) Neutrophils # (Auto) 7.1 x10^3uL (1.8-7.7) Lymphocytes # (Auto) 0.7 x10^3/uL (1.0-4.8) L Monocytes # (Auto) 0.4 x10^3/uL (0.0-1.1) Eosinophils # (Auto) 0.5 x10^3/uL (0.0-0.7) Basophils # (Auto) 0.0 x10^3/uL (0.0-0.2) Prothrombin Time 13.6 SEC (11.7-14.0) Prothrombin Time INR 1.1 (0.8-1.1) Sodium Level 142 mmol/L (136-145) Potassium Level 3.8 mmol/L (3.5-5.1) Chloride Level 101 mmol/L (98-107) Carbon Dioxide Level 25 mmol/L (21-32) Anion Gap 16 (6-14) H Blood Urea Nitrogen 44 mg/dL (7-20) H Creatinine 6.4 mg/dL (0.6-1.0) H Estimated GFR (Cockcroft-Gault) 6.6 BUN/Creatinine Ratio 7 (6-20) Glucose Level 103 mg/dL (70-99) H Calcium Level 9.2 mg/dL (8.5-10.1) Magnesium Level 1.7 mg/dL (1.8-2.4) L Total Bilirubin 0.4 mg/dL (0.2-1.0) Aspartate Amino Transferase (AST) 12 U/L (15-37) L Alanine Aminotransferase (ALT) 13 U/L (14-59) L Alkaline Phosphatase 44 U/L (46-116) L Troponin I Quantitative < 0.017 ng/mL (0.000-0.055) NS-Zvo-N-Type Natriuretic Peptide 2626 pg/mL (0-124) H Total Protein 6.9 g/dL (6.4-8.2) Albumin 3.3 g/dL (3.4-5.0) L Albumin/Globulin Ratio 0.9 (1.0-1.7) L Laboratory Tests 07/26/18 08:10 Laboratory Tests 07/26/18 09:05 EKG EKG []nsr rate 99 no acute ischemic chagnes noted interpreted by me time of encounter Radiology/Procedures Radiology/Procedures [] Impressions: no def pna Course & Med Decision Making Course & Med Decision Making Pertinent Labs and Imaging studies reviewed. (See chart for details) likely copd exacerbation cxr no definite signs of fluid overload 63-year-old female history of end-stage renal disease COPD not on home oxygen presenting with increasing shortness of breath in the setting of having had 1 hour left of dialysis. Patient has wheezing on examination she feels better after nebs we gave Solu-Medrol she had borderline oxygenation in initially so I think we should admit her overnight for observation. Dragon Disclaimer Dragon Disclaimer This electronic medical record was generated, in whole or in part, using a voice recognition dictation system. Departure Departure Impression: Primary Impression: COPD exacerbation Disposition: ADMITTED INPATIENT Admitting Physician: Xie. Rizvi Condition: STABLE Referrals: JANEY MARIE (PCP) FRANCO VALDES MD Jul 26, 2018 07:57
[2018-07-26] MEDS ORDERED: DOXYCYCLINE HYCLATE 100 MG in IV DEXTROSE 5% 100ML 100 ML IV ONE (08:00)
--- NOTE | 2018-07-26 08:06 | RAD ---
Portable chest, 07/26/2018: HISTORY: Shortness of breath Comparison is made to a study from 09/22/2017. The heart size and pulmonary vascularity are normal. There is calcific plaquing of the aorta. There is mild linear atelectasis or scarring medially in the right base. The lungs are otherwise clear. There is no evidence of pleural fluid. IMPRESSION: Mild right basilar linear atelectasis or scarring. Electronically signed by: Jagjit Perez MD (07/26/2018 8:01 AM) [facility]
[2018-07-26 08:33] LABS: BASO % 0 % (0-3); EOS # 0.5 x10^3/uL (0.0-0.7); EOS % 5 % (0-3); HEMATOCRIT 34.3 % (36.0-47.0); HEMOGLOBIN 11.9 g/dL (12.0-15.5); LYMPH # 0.7 x10^3/uL (1.0-4.8); LYMPH % 8 % (24-48); MEAN CORPUSCULAR HEMOGLOBIN 37 pg (25-35); MEAN CORPUSCULAR HGB CONC 35 g/dL (31-37); MONO # 0.4 x10^3/uL (0.0-1.1); MONO % 5 % (0-9); NEUT # 7.1 x10^3uL (1.8-7.7); NEUT % 82 % (31-73); PLATELET COUNT 346 x10^3/uL (140-400); RED BLOOD COUNT 3.19 x10^6/uL (3.50-5.40); RED CELL DISTRIBUTION WIDTH 18.6 % (11.5-14.5); WHITE BLOOD COUNT 8.7 x10^3/uL (4.0-11.0)
[2018-07-26 08:35] LABS: MEAN CORPUSCULAR VOLUME 106 fL (79-100)
--- NOTE | 2018-07-26 09:20 | EKG ---
[facility] [address] [place] [address] Test Date: 2018-07-26 Test Time: 07:43:48 Pat Name: LUCÍA SEVILLA Department: Room: Gender: F [employer] Assistant: : 1955 Requested By: FRANCO VALDES Order Number: [id number] Reading MD: Robbie Gregory MD Measurements Intervals [place] Rate: 99 P: 40 OK: 144 QRS: 37 QRSD: 68 T: 47 QT: 322 QTc: 413 Interpretive Statements SINUS RHYTHM Electronically Signed On 07-26-2018 12:33:17 CONTENT MANAGER by Robbie Gregory MD
[2018-07-26 09:31] LABS: CALCIUM 9.2 mg/dL (8.5-10.1); CREATININE 6.4 mg/dL (0.6-1.0); GFR 6.6; POTASSIUM 3.8 mmol/L (3.5-5.1)
[2018-07-26 09:36] LABS: ALBUMIN 3.3 g/dL (3.4-5.0); ALBUMIN/GLOBULIN RATIO 0.9 (1.0-1.7); MAGNESIUM 1.7 mg/dL (1.8-2.4); TOTAL BILIRUBIN 0.4 mg/dL (0.2-1.0); TOTAL PROTEIN 6.9 g/dL (6.4-8.2)
[2018-07-26 09:45] LABS: PROTHROMBIN TIME PATIENT 13.6 SEC (11.7-14.0)
--- NOTE | 2018-07-26 10:45 | NUR ---
Pt admitted by Dr. Lewis to room 660. Received report from ELVIA Davalos in emergency department. Pt transported via wheelchair by hospital transportation personnel. All belongings with patient at time of transfer.
[2018-07-26 11:12] LABS: INFLUENZA A PATIENT NEGATIVE (NEGATIVE); INFLUENZA B PATIENT NEGATIVE (NEGATIVE)
[2018-07-26 11:28] VITALS: BP 115/56
[2018-07-26] MEDS ORDERED: IPRATRPIUM/ALBUTEROL 0.5/2.5MG 3 ML NEBU. NEB SCH (12:00)
[2018-07-26] MEDS ORDERED: DOCUSATE SODIUM 100 MG CAPSULE. PO PRN (12:15)
[2018-07-26] MEDS ORDERED: ONDANSETRON PF 4 MG/2 ML VIAL. IV PRN (12:15)
[2018-07-26] MEDS ORDERED: hydrALAZINE 20 MG/ML VIAL. IVP PRN (12:15)
[2018-07-26] MEDS ORDERED: MORPHINE SULFATE 4 MG/ML VIAL. IV PRN (12:15)
[2018-07-26] MEDS ORDERED: traMADol 50 MG TABLET PO PRN (12:15)
[2018-07-26] MEDS ORDERED: ACETAMINOPHEN 325 MG TABLET. PO PRN (12:15)
[2018-07-26] MEDS ORDERED: LOSARTAN POTASSIUM 50 MG TABLET. PO SCH (12:30)
[2018-07-26] MEDS ORDERED: amLODIPine BESYLATE 10 MG TABLET PO SCH (12:30)
[2018-07-26] MEDS: PANTOPRAZOLE 40 MG TABLET.DR. PO SCH (12:59)
[2018-07-26] MEDS: ASCORBIC ACID 500 MG TABLET PO SCH (12:59)
--- NOTE | 2018-07-26 14:00 | NUR ---
Pt BP 88/59, HR 98, SpO2 82-84% on 5L NC. Pt is laying supine in bed, asymptomatic. Pt stated that her "BP normally runs low, even during dialysis." This RN asked patient if she is feeling more SOB and pt stated she "feels pretty good." Notified Dr. Lewis, received orders to check ABG. Notified respiratory therapist, Donna, of the changes. We rechecked her oxygen saturation with a different SpO2 probe and it was noted that the patient was stating at 91-92% on 5L NC while sitting on the side of the bed. Awaiting results of ABG. Will continue to monitor.
[2018-07-26 14:34] LABS: BASE EXCESS ABG -2 mmol/L (-3-3); HCO3 ABG 22 mmol/L (21-28); PCO2 ABG 33 mmHg (35-46); PO2 ABG 63 mmHg (65-108); SAT O2 ABG 90 % (92-99)
[2018-07-26 14:39] LABS: FIO2 ABG 40
[2018-07-26] MEDS: HEPARIN for SUB-Q USE 5,000 UNIT/ML VIAL. SQ SCH ×2 (15:00→20:51)
[2018-07-26] MEDS ORDERED: DOXYCYCLINE HYCLATE 100 MG TABLET PO SCH (15:00)
[2018-07-26] MEDS ORDERED: methylPREDNISolone SOD SUCC PF 40 MG/ML VIAL. IV SCH (15:00)
[2018-07-26 15:03] VITALS: BP 129/74
--- NOTE | 2018-07-26 15:05 | PDOC1 ---
History and Physical Date of Admission Date of Admission 07/26/18 Identification/Chief Complaint Chief Complaint sob Source Source: Chart review, Patient History of Present Illness History of Present Illness Patient is a 63 year old f biba with cc of sob while on dialysis had an hour left. Pt is a smoker, no home o2. She FEELS sob, cough, has COPD on inhalers at home. sat 88 on nc on medic arrival, improveda fter nebs up to mid 90s, now need NC 5L on the floor, and SAT 90%. FEELS better on floor after treatment in ER. no cp no fever cough with yellow sputum. Past Medical History Past Medical History Asthma, COPD, High Cholesterol, Hypertension, Renal Failure Cardiovascular: HTN Pulmonary: COPD Past Surgical History Past Surgical History: Family History Family History: Hypertension Social History Smoke: No ALCOHOL: none Drugs: None Current Medications Current Medications Current Medications Medications (Trade) Dose Ordered Sig/Aki Start Time Stop Time Status Last Admin Dose Admin Acetaminophen (Tylenol) 650 mg PRN Q6HRS PRN 07/26/18 12:15 Albuterol Sulfate (Ventolin Neb Soln) 2.5 mg PRN Q2HR PRN 07/26/18 12:15 Albuterol/ Ipratropium (Duoneb) 3 ml RTQID 07/26/18 16:00 Amlodipine Besylate (Norvasc) 10 mg DAILY 07/26/18 12:30 07/26/18 13:05 10 MG Ascorbic Acid (Vitamin C) 500 mg DAILY 07/26/18 12:30 07/26/18 12:59 500 MG Atorvastatin Calcium (Lipitor) 40 mg HS 07/26/18 21:00 Budesonide (Pulmicort) 0.5 mg RTBID 07/26/18 20:00 Docusate Sodium (Colace) 100 mg PRN DAILY PRN 07/26/18 12:15 Doxycycline Hyclate 100 mg/ Dextrose 100 ml @ 50 mls/hr 1X ONCE 07/26/18 08:00 07/26/18 09:59 DC 07/26/18 08:24 50 MLS/HR Guaifenesin (Mucinex) 600 mg BID 07/26/18 21:00 Hydralazine HCl (Apresoline Inj) 10 mg PRN Q4HRS PRN 07/26/18 12:15 Losartan Potassium (Cozaar) 100 mg DAILY 07/26/18 12:30 07/26/18 13:04 100 MG Methylprednisolone Sodium Succinate (SOLU-Medrol 125MG VIAL) 125 mg 1X ONCE 07/26/18 07:45 07/26/18 07:51 DC 07/26/18 08:23 125 MG Morphine Sulfate (Morphine Sulfate) 2 mg PRN Q2HR PRN 07/26/18 12:15 Non-Formulary Medication ([torsemide] ) 5 mg DAILY 07/27/18 09:00 UNV Ondansetron HCl (Zofran) 4 mg PRN Q6HRS PRN 07/26/18 12:15 Pantoprazole Sodium (Protonix) 40 mg DAILYAC 07/26/18 12:30 07/26/18 12:59 40 MG Tramadol HCl (Ultram) 50 mg PRN Q6HRS PRN 07/26/18 12:15 Allergies Allergies Allergies Coded Allergies Type Severity Reaction Last Updated Verified No Known Drug Allergies 07/19/18 No ROS Review of System CONSTITUTIONAL: No fever or chills EYES: No recent changes SKIN: No rash or itching CARDIOVASCULAR: No chest pain, syncope, palpitations, or edema RESPIRATORY: No SOB or cough GASTROINTESTINAL: No nausea, vomiting or abdominal pain NEUROLOGICAL: No headaches or weakness ENDOCRINE: No cold or heat intolerance GENITOURINARY: No urgency or frequency of urination MUSCULOSKELETAL: No back pain or joint pain LYMPHATICS: No enlarged lymph nodes PSYCHIATRIC: No anxiety or depression Physical Exam Physical Exam GEN.: No apparent distress. Alert and oriented. HEENT: Head is normocephalic, atraumatic NECK: Supple. LUNGS: bl mild decreased bs HEART: RRR, S1, S2 present. Peripheral pulses intact ABDOMEN: Soft, nontender. Positive bowel sounds. EXTREMITIES: Without any cyanosis. NEUROLOGIC: Normal speech, normal tone PSYCHIATRIC: Normal affect, normal mood. SKIN: No ulcerations Vitals Vitals Vital Signs Date Time Temp Pulse Resp B/P (MAP) Pulse Ox O2 Delivery O2 Flow Rate FiO2 07/26/18 14:28 Nasal Cannula 5.0 07/26/18 13:05 95 113/60 07/26/18 11:56 94 07/26/18 11:28 98.0 98.0 07/26/18 10:17 19 Labs Labs Laboratory Tests Test 07/26/18 08:10 07/26/18 09:05 07/26/18 10:33 07/26/18 14:25 White Blood Count 8.7 x10^3/uL (4.0-11.0) Red Blood Count 3.19 x10^6/uL (3.50-5.40) Hemoglobin 11.9 g/dL (12.0-15.5) Hematocrit 34.3 % (36.0-47.0) Mean Corpuscular Volume 106 fL (79-100) Mean Corpuscular Hemoglobin 37 pg (25-35) Mean Corpuscular Hemoglobin Concent 35 g/dL (31-37) Red Cell Distribution Width 18.6 % (11.5-14.5) Platelet Count 346 x10^3/uL (140-400) Neutrophils (%) (Auto) 82 % (31-73) Lymphocytes (%) (Auto) 8 % (24-48) Monocytes (%) (Auto) 5 % (0-9) Eosinophils (%) (Auto) 5 % (0-3) Basophils (%) (Auto) 0 % (0-3) Neutrophils # (Auto) 7.1 x10^3uL (1.8-7.7) Lymphocytes # (Auto) 0.7 x10^3/uL (1.0-4.8) Monocytes # (Auto) 0.4 x10^3/uL (0.0-1.1) Eosinophils # (Auto) 0.5 x10^3/uL (0.0-0.7) Basophils # (Auto) 0.0 x10^3/uL (0.0-0.2) Prothrombin Time 13.6 SEC (11.7-14.0) Prothromb Time International Ratio 1.1 (0.8-1.1) Sodium Level 142 mmol/L (136-145) Potassium Level 3.8 mmol/L (3.5-5.1) Chloride Level 101 mmol/L (98-107) Carbon Dioxide Level 25 mmol/L (21-32) Anion Gap 16 (6-14) Blood Urea Nitrogen 44 mg/dL (7-20) Creatinine 6.4 mg/dL (0.6-1.0) Estimated GFR (Cockcroft-Gault) 6.6 BUN/Creatinine Ratio 7 (6-20) Glucose Level 103 mg/dL (70-99) Calcium Level 9.2 mg/dL (8.5-10.1) Magnesium Level 1.7 mg/dL (1.8-2.4) Total Bilirubin 0.4 mg/dL (0.2-1.0) Aspartate Amino Transf (AST/SGOT) 12 U/L (15-37) Alanine Aminotransferase (ALT/SGPT) 13 U/L (14-59) Alkaline Phosphatase 44 U/L (46-116) Troponin I Quantitative < 0.017 ng/mL (0.000-0.055) FV-Joi-V-Type Natriuretic Peptide 2626 pg/mL (0-124) Total Protein 6.9 g/dL (6.4-8.2) Albumin 3.3 g/dL (3.4-5.0) Albumin/Globulin Ratio 0.9 (1.0-1.7) Influenza Type A Antigen Negative (NEGATIVE) Influenza Type B Antigen Negative (NEGATIVE) O2 Saturation 90 % (92-99) Arterial Blood pH 7.44 (7.35-7.45) Arterial Blood pCO2 at Patient Temp 33 mmHg (35-46) Arterial Blood pO2 at Patient Temp 63 mmHg (65-108) Arterial Blood HCO3 22 mmol/L (21-28) Arterial Blood Base Excess -2 mmol/L (-3-3) FiO2 40 Laboratory Tests Test 07/26/18 08:10 07/26/18 09:05 07/26/18 10:33 07/26/18 14:25 White Blood Count 8.7 x10^3/uL (4.0-11.0) Red Blood Count 3.19 x10^6/uL (3.50-5.40) Hemoglobin 11.9 g/dL (12.0-15.5) Hematocrit 34.3 % (36.0-47.0) Mean Corpuscular Volume 106 fL (79-100) Mean Corpuscular Hemoglobin 37 pg (25-35) Mean Corpuscular Hemoglobin Concent 35 g/dL (31-37) Red Cell Distribution Width 18.6 % (11.5-14.5) Platelet Count 346 x10^3/uL (140-400) Neutrophils (%) (Auto) 82 % (31-73) Lymphocytes (%) (Auto) 8 % (24-48) Monocytes (%) (Auto) 5 % (0-9) Eosinophils (%) (Auto) 5 % (0-3) Basophils (%) (Auto) 0 % (0-3) Neutrophils # (Auto) 7.1 x10^3uL (1.8-7.7) Lymphocytes # (Auto) 0.7 x10^3/uL (1.0-4.8) Monocytes # (Auto) 0.4 x10^3/uL (0.0-1.1) Eosinophils # (Auto) 0.5 x10^3/uL (0.0-0.7) Basophils # (Auto) 0.0 x10^3/uL (0.0-0.2) Prothrombin Time 13.6 SEC (11.7-14.0) Prothromb Time International Ratio 1.1 (0.8-1.1) Sodium Level 142 mmol/L (136-145) Potassium Level 3.8 mmol/L (3.5-5.1) Chloride Level 101 mmol/L (98-107) Carbon Dioxide Level 25 mmol/L (21-32) Anion Gap 16 (6-14) Blood Urea Nitrogen 44 mg/dL (7-20) Creatinine 6.4 mg/dL (0.6-1.0) Estimated GFR (Cockcroft-Gault) 6.6 BUN/Creatinine Ratio 7 (6-20) Glucose Level 103 mg/dL (70-99) Calcium Level 9.2 mg/dL (8.5-10.1) Magnesium Level 1.7 mg/dL (1.8-2.4) Total Bilirubin 0.4 mg/dL (0.2-1.0) Aspartate Amino Transf (AST/SGOT) 12 U/L (15-37) Alanine Aminotransferase (ALT/SGPT) 13 U/L (14-59) Alkaline Phosphatase 44 U/L (46-116) Troponin I Quantitative < 0.017 ng/mL (0.000-0.055) IP-Knf-N-Type Natriuretic Peptide 2626 pg/mL (0-124) Total Protein 6.9 g/dL (6.4-8.2) Albumin 3.3 g/dL (3.4-5.0) Albumin/Globulin Ratio 0.9 (1.0-1.7) Influenza Type A Antigen Negative (NEGATIVE) Influenza Type B Antigen Negative (NEGATIVE) O2 Saturation 90 % (92-99) Arterial Blood pH 7.44 (7.35-7.45) Arterial Blood pCO2 at Patient Temp 33 mmHg (35-46) Arterial Blood pO2 at Patient Temp 63 mmHg (65-108) Arterial Blood HCO3 22 mmol/L (21-28) Arterial Blood Base Excess -2 mmol/L (-3-3) FiO2 40 VTE Prophylaxis Ordered VTE Prophylaxis Devices: Yes VTE Pharmacological Prophylaxi: Yes Assessment/Plan Assessment/Plan acute hypoxic resp failure with COPD exacerbation possible Diastolic CHF exacerbation htn hld COPD smoker ESRD on HD morbid obesity plan: pulm, renal consult cont HD cont home meds, on torsemide. lasix iv x1 add duoneb, albuterol prn, solumedrol iv, doxy dc amlodpine given low bp after meds today, decrease losartan to 50mg daily, monitor bp NC 5L, ABG checked, low sat, may need mask dvt , gi ppx PTOT educated pt to dc smoking, pt felt it is hard. DARREL IRAHETA MD Jul 26, 2018 15:05
[2018-07-26] MEDS ORDERED: MAGNESIUM SULFATE 2GM 50 ML IV ONE (15:30)
[2018-07-26] MEDS: IPRATRPIUM/ALBUTEROL 0.5/2.5MG 3 ML NEBU. NEB SCH ×2 (15:49→19:53)
[2018-07-26] MEDS: FUROSEMIDE 40 MG/4 ML VIAL. IVP ONE ×2 (15:52→17:36)
[2018-07-26 17:50] VITALS: BP 108/52
[2018-07-26 19:00] VITALS: BP 103/49
[2018-07-26] MEDS: BUDESONIDE 0.5 MG/2 ML NEBU. NEB SCH (19:53)
[2018-07-26] MEDS: DOXYCYCLINE HYCLATE 100 MG TABLET PO SCH (20:51)
[2018-07-26] MEDS: methylPREDNISolone SOD SUCC PF 40 MG/ML VIAL. IV SCH (20:51)
[2018-07-26] MEDS ORDERED: ATORVASTATIN CALCIUM 40 MG TABLET. PO SCH (21:00)
[2018-07-26 23:00] VITALS: BP 110/65
[2018-07-26] MEDS: ALBUTEROL SULFATE 2.5 MG/3 ML NEBU. NEB PRN (23:52)
[2018-07-27 03:00] VITALS: BP 109/57
[2018-07-27] MEDS: ALBUTEROL SULFATE 2.5 MG/3 ML NEBU. NEB PRN ×2 (03:51→14:06)
[2018-07-27] MEDS: HEPARIN for SUB-Q USE 5,000 UNIT/ML VIAL. SQ SCH ×2 (06:00→12:26)
[2018-07-27 06:39] LABS: BASO % 0 % (0-3); EOS % 0 % (0-3); HEMATOCRIT 32.7 % (36.0-47.0); LYMPH # 0.3 x10^3/uL (1.0-4.8); LYMPH % 5 % (24-48); MEAN CORPUSCULAR HEMOGLOBIN 37 pg (25-35); MEAN CORPUSCULAR HGB CONC 34 g/dL (31-37); MEAN CORPUSCULAR VOLUME 109 fL (79-100); MONO # 0.3 x10^3/uL (0.0-1.1); MONO % 4 % (0-9); NEUT # 6.8 x10^3uL (1.8-7.7); NEUT % 92 % (31-73); PLATELET COUNT 352 x10^3/uL (140-400); RED CELL DISTRIBUTION WIDTH 19.4 % (11.5-14.5); WHITE BLOOD COUNT 7.4 x10^3/uL (4.0-11.0)
[2018-07-27 06:51] LABS: CALCIUM 9.5 mg/dL (8.5-10.1); GFR 4.4; POTASSIUM 4.7 mmol/L (3.5-5.1)
[2018-07-27 07:15] VITALS: BP 106/50
[2018-07-27] MEDS: IPRATRPIUM/ALBUTEROL 0.5/2.5MG 3 ML NEBU. NEB SCH ×3 (07:42→15:32)
[2018-07-27] MEDS: BUDESONIDE 0.5 MG/2 ML NEBU. NEB SCH (07:42)
[2018-07-27] MEDS: ASCORBIC ACID 500 MG TABLET PO SCH (08:07)
[2018-07-27] MEDS: PANTOPRAZOLE 40 MG TABLET.DR. PO SCH (08:07)
[2018-07-27] MEDS: methylPREDNISolone SOD SUCC PF 40 MG/ML VIAL. IV SCH (08:10)
[2018-07-27] MEDS: DOXYCYCLINE HYCLATE 100 MG TABLET PO SCH (08:11)
[2018-07-27] MEDS ORDERED: TORSEMIDE 20 MG TABLET. PO SCH (09:00)
[2018-07-27] MEDS ORDERED: LOSARTAN POTASSIUM 50 MG TABLET. PO SCH (09:00)
[2018-07-27 09:33] LABS: % LYMPHS 3 % (24-48); % MONOS 1 % (0-10); % SEGS 96 % (35-66); ANISOCYTOSIS SLIGHT; PLT ESTIMATE ADEQUATE (ADEQUATE)
[2018-07-27 10:53] VITALS: BP 105/56
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
--- NOTE | 2018-07-27 13:15 | PDOC ---
PROGRESS NOTES Chief Complaint Chief Complaint CC: COPD exacerbation History of Present Illness History of Present Illness Patient was seen and examined this morning. She is doing well and is talkative. She wasn't sure if she felt well enough to go home today. Vitals Vitals Vital Signs Date Time Temp Pulse Resp B/P (MAP) Pulse Ox O2 Delivery O2 Flow Rate FiO2 07/27/18 11:38 Nasal Cannula 5.0 07/27/18 10:53 97.6 86 22 105/56 (72) 93 97.6 Physical Exam General: Alert, Oriented X3, Cooperative Heart: Regular rate, Normal S1, Normal S2 Lungs: Clear Abdomen: Normal bowel sounds Extremities: No clubbing Skin: No rashes Labs LABS Laboratory Tests Test 07/26/18 14:25 07/27/18 05:13 O2 Saturation 90 % (92-99) Arterial Blood pH 7.44 (7.35-7.45) Arterial Blood pCO2 at Patient Temp 33 mmHg (35-46) Arterial Blood pO2 at Patient Temp 63 mmHg (65-108) Arterial Blood HCO3 22 mmol/L (21-28) Arterial Blood Base Excess -2 mmol/L (-3-3) FiO2 40 White Blood Count 7.4 x10^3/uL (4.0-11.0) Red Blood Count 3.00 x10^6/uL (3.50-5.40) Hemoglobin 11.0 g/dL (12.0-15.5) Hematocrit 32.7 % (36.0-47.0) Mean Corpuscular Volume 109 fL (79-100) Mean Corpuscular Hemoglobin 37 pg (25-35) Mean Corpuscular Hemoglobin Concent 34 g/dL (31-37) Red Cell Distribution Width 19.4 % (11.5-14.5) Platelet Count 352 x10^3/uL (140-400) Neutrophils (%) (Auto) 92 % (31-73) Lymphocytes (%) (Auto) 5 % (24-48) Monocytes (%) (Auto) 4 % (0-9) Eosinophils (%) (Auto) 0 % (0-3) Basophils (%) (Auto) 0 % (0-3) Neutrophils # (Auto) 6.8 x10^3uL (1.8-7.7) Lymphocytes # (Auto) 0.3 x10^3/uL (1.0-4.8) Monocytes # (Auto) 0.3 x10^3/uL (0.0-1.1) Eosinophils # (Auto) 0.0 x10^3/uL (0.0-0.7) Basophils # (Auto) 0.0 x10^3/uL (0.0-0.2) Segmented Neutrophils % 96 % (35-66) Lymphocytes % 3 % (24-48) Monocytes % 1 % (0-10) Platelet Estimate Adequate (ADEQUATE) Anisocytosis Slight Macrocytosis Slight Sodium Level 133 mmol/L (136-145) Potassium Level 4.7 mmol/L (3.5-5.1) Chloride Level 94 mmol/L (98-107) Carbon Dioxide Level 23 mmol/L (21-32) Anion Gap 16 (6-14) Blood Urea Nitrogen 80 mg/dL (7-20) Creatinine 9.0 mg/dL (0.6-1.0) Estimated GFR (Cockcroft-Gault) 4.4 Glucose Level 120 mg/dL (70-99) Calcium Level 9.5 mg/dL (8.5-10.1) Review of Systems Review of Systems Heart: denies chest pain GI: denies abdominal pain Integument: denies rash, itching Assessment and Plan Assessmemt and Plan Assessment: 1. COPD exacerbation 2. ESRD 3. HTN Plan: 1. PT/OT 2. Home meds 3. Labs 4. Steroids 5. Breathing treatments 6. Continue antibiotics 7. Keep patient on oxygen Comment Review of Relevant I have reviewed the following items court (where applicable) has been applied. Labs Laboratory Tests Test 07/26/18 08:10 07/26/18 09:05 07/26/18 10:33 07/26/18 14:25 White Blood Count 8.7 x10^3/uL (4.0-11.0) Red Blood Count 3.19 x10^6/uL (3.50-5.40) Hemoglobin 11.9 g/dL (12.0-15.5) Hematocrit 34.3 % (36.0-47.0) Mean Corpuscular Volume 106 fL (79-100) Mean Corpuscular Hemoglobin 37 pg (25-35) Mean Corpuscular Hemoglobin Concent 35 g/dL (31-37) Red Cell Distribution Width 18.6 % (11.5-14.5) Platelet Count 346 x10^3/uL (140-400) Neutrophils (%) (Auto) 82 % (31-73) Lymphocytes (%) (Auto) 8 % (24-48) Monocytes (%) (Auto) 5 % (0-9) Eosinophils (%) (Auto) 5 % (0-3) Basophils (%) (Auto) 0 % (0-3) Neutrophils # (Auto) 7.1 x10^3uL (1.8-7.7) Lymphocytes # (Auto) 0.7 x10^3/uL (1.0-4.8) Monocytes # (Auto) 0.4 x10^3/uL (0.0-1.1) Eosinophils # (Auto) 0.5 x10^3/uL (0.0-0.7) Basophils # (Auto) 0.0 x10^3/uL (0.0-0.2) Prothrombin Time 13.6 SEC (11.7-14.0) Prothromb Time International Ratio 1.1 (0.8-1.1) Sodium Level 142 mmol/L (136-145) Potassium Level 3.8 mmol/L (3.5-5.1) Chloride Level 101 mmol/L (98-107) Carbon Dioxide Level 25 mmol/L (21-32) Anion Gap 16 (6-14) Blood Urea Nitrogen 44 mg/dL (7-20) Creatinine 6.4 mg/dL (0.6-1.0) Estimated GFR (Cockcroft-Gault) 6.6 BUN/Creatinine Ratio 7 (6-20) Glucose Level 103 mg/dL (70-99) Calcium Level 9.2 mg/dL (8.5-10.1) Magnesium Level 1.7 mg/dL (1.8-2.4) Total Bilirubin 0.4 mg/dL (0.2-1.0) Aspartate Amino Transf (AST/SGOT) 12 U/L (15-37) Alanine Aminotransferase (ALT/SGPT) 13 U/L (14-59) Alkaline Phosphatase 44 U/L (46-116) Troponin I Quantitative < 0.017 ng/mL (0.000-0.055) IH-Gzo-U-Type Natriuretic Peptide 2626 pg/mL (0-124) Total Protein 6.9 g/dL (6.4-8.2) Albumin 3.3 g/dL (3.4-5.0) Albumin/Globulin Ratio 0.9 (1.0-1.7) Influenza Type A Antigen Negative (NEGATIVE) Influenza Type B Antigen Negative (NEGATIVE) O2 Saturation 90 % (92-99) Arterial Blood pH 7.44 (7.35-7.45) Arterial Blood pCO2 at Patient Temp 33 mmHg (35-46) Arterial Blood pO2 at Patient Temp 63 mmHg (65-108) Arterial Blood HCO3 22 mmol/L (21-28) Arterial Blood Base Excess -2 mmol/L (-3-3) FiO2 40 Test 07/27/18 05:13 White Blood Count 7.4 x10^3/uL (4.0-11.0) Red Blood Count 3.00 x10^6/uL (3.50-5.40) Hemoglobin 11.0 g/dL (12.0-15.5) Hematocrit 32.7 % (36.0-47.0) Mean Corpuscular Volume 109 fL (79-100) Mean Corpuscular Hemoglobin 37 pg (25-35) Mean Corpuscular Hemoglobin Concent 34 g/dL (31-37) Red Cell Distribution Width 19.4 % (11.5-14.5) Platelet Count 352 x10^3/uL (140-400) Neutrophils (%) (Auto) 92 % (31-73) Lymphocytes (%) (Auto) 5 % (24-48) Monocytes (%) (Auto) 4 % (0-9) Eosinophils (%) (Auto) 0 % (0-3) Basophils (%) (Auto) 0 % (0-3) Neutrophils # (Auto) 6.8 x10^3uL (1.8-7.7) Lymphocytes # (Auto) 0.3 x10^3/uL (1.0-4.8) Monocytes # (Auto) 0.3 x10^3/uL (0.0-1.1) Eosinophils # (Auto) 0.0 x10^3/uL (0.0-0.7) Basophils # (Auto) 0.0 x10^3/uL (0.0-0.2) Segmented Neutrophils % 96 % (35-66) Lymphocytes % 3 % (24-48) Monocytes % 1 % (0-10) Platelet Estimate Adequate (ADEQUATE) Anisocytosis Slight Macrocytosis Slight Sodium Level 133 mmol/L (136-145) Potassium Level 4.7 mmol/L (3.5-5.1) Chloride Level 94 mmol/L (98-107) Carbon Dioxide Level 23 mmol/L (21-32) Anion Gap 16 (6-14) Blood Urea Nitrogen 80 mg/dL (7-20) Creatinine 9.0 mg/dL (0.6-1.0) Estimated GFR (Cockcroft-Gault) 4.4 Glucose Level 120 mg/dL (70-99) Calcium Level 9.5 mg/dL (8.5-10.1) Laboratory Tests Test 07/26/18 14:25 07/27/18 05:13 O2 Saturation 90 % (92-99) Arterial Blood pH 7.44 (7.35-7.45) Arterial Blood pCO2 at Patient Temp 33 mmHg (35-46) Arterial Blood pO2 at Patient Temp 63 mmHg (65-108) Arterial Blood HCO3 22 mmol/L (21-28) Arterial Blood Base Excess -2 mmol/L (-3-3) FiO2 40 White Blood Count 7.4 x10^3/uL (4.0-11.0) Red Blood Count 3.00 x10^6/uL (3.50-5.40) Hemoglobin 11.0 g/dL (12.0-15.5) Hematocrit 32.7 % (36.0-47.0) Mean Corpuscular Volume 109 fL (79-100) Mean Corpuscular Hemoglobin 37 pg (25-35) Mean Corpuscular Hemoglobin Concent 34 g/dL (31-37) Red Cell Distribution Width 19.4 % (11.5-14.5) Platelet Count 352 x10^3/uL (140-400) Neutrophils (%) (Auto) 92 % (31-73) Lymphocytes (%) (Auto) 5 % (24-48) Monocytes (%) (Auto) 4 % (0-9) Eosinophils (%) (Auto) 0 % (0-3) Basophils (%) (Auto) 0 % (0-3) Neutrophils # (Auto) 6.8 x10^3uL (1.8-7.7) Lymphocytes # (Auto) 0.3 x10^3/uL (1.0-4.8) Monocytes # (Auto) 0.3 x10^3/uL (0.0-1.1) Eosinophils # (Auto) 0.0 x10^3/uL (0.0-0.7) Basophils # (Auto) 0.0 x10^3/uL (0.0-0.2) Segmented Neutrophils % 96 % (35-66) Lymphocytes % 3 % (24-48) Monocytes % 1 % (0-10) Platelet Estimate Adequate (ADEQUATE) Anisocytosis Slight Macrocytosis Slight Sodium Level 133 mmol/L (136-145) Potassium Level 4.7 mmol/L (3.5-5.1) Chloride Level 94 mmol/L (98-107) Carbon Dioxide Level 23 mmol/L (21-32) Anion Gap 16 (6-14) Blood Urea Nitrogen 80 mg/dL (7-20) Creatinine 9.0 mg/dL (0.6-1.0) Estimated GFR (Cockcroft-Gault) 4.4 Glucose Level 120 mg/dL (70-99) Calcium Level 9.5 mg/dL (8.5-10.1) Microbiology 07/26/18 Blood Culture - Preliminary, Resulted NO GROWTH AFTER 1 DAY Medications Current Medications Albuterol Sulfate (Ventolin Neb Soln) 10 mg 1X ONCE CONT NEB Last administered on 07/26/18at 08:13; Start 07/26/18 at 07:45; Stop 07/26/18 at 07:51 ; Status DC Methylprednisolone Sodium Succinate (SOLU-Medrol 125MG VIAL) 125 mg 1X ONCE IV Last administered on 07/26/18at 08:23; Start 07/26/18 at 07:45; Stop 07/26/18 at 07:51; Status DC Doxycycline Hyclate 100 mg/ Dextrose 100 ml @ 50 mls/hr 1X ONCE IV Last administered on 07/26/18at 08:24; Start 07/26/18 at 08:00; Stop 07/26/18 at 09:59 ; Status DC Albuterol/ Ipratropium (Duoneb) 3 ml RTQID NEB Last administered on 07/26/18at 11:54; Start 07/26/18 at 12:00; Stop 07/26/18 at 12:12; Status DC Acetaminophen (Tylenol) 650 mg PRN Q6HRS PRN PO FEVER; Start 07/26/18 at 12:15 Ondansetron HCl (Zofran) 4 mg PRN Q6HRS PRN IV NAUSEA/VOMITING; Start 07/26/18 at 12:15 Morphine Sulfate (Morphine Sulfate) 2 mg PRN Q2HR PRN IV MODERATE TO SEVERE PAIN; Start 07/26/18 at 12:15 Tramadol HCl (Ultram) 50 mg PRN Q6HRS PRN PO MILD TO MODERATE PAIN Last administered on 07/26/18at 17:36; Start 07/26/18 at 12:15 Hydralazine HCl (Apresoline Inj) 10 mg PRN Q4HRS PRN IVP ELEVATED BP, SEE COMMENTS; Start 07/26/18 at 12:15 Docusate Sodium (Colace) 100 mg PRN DAILY PRN PO CONSTIPATION; Start 07/26/18 at 12:15 Albuterol/ Ipratropium (Duoneb) 3 ml RTQID NEB Last administered on 07/27/18at 11:37; Start 07/26/18 at 16:00 Albuterol Sulfate (Ventolin Neb Soln) 2.5 mg PRN Q2HR PRN NEB SHORTNESS OF BREATH Last administered on 07/27/18at 03:51; Start 07/26/18 at 12:15 Guaifenesin (Mucinex) 600 mg BID PO Last administered on 07/27/18at 08:07; Start 07/26/18 at 21:00 Amlodipine Besylate (Norvasc) 10 mg DAILY PO Last administered on 07/26/18at 13: 05; Start 07/26/18 at 12:30; Stop 07/26/18 at 14:59; Status DC Ascorbic Acid (Vitamin C) 500 mg DAILY PO Last administered on 07/27/18 08:07 ; Start 07/26/18 at 12:30 Atorvastatin Calcium (Lipitor) 40 mg HS PO Last administered on 07/26/18at 20:51 ; Start 07/26/18 at 21:00 Pantoprazole Sodium (Protonix) 40 mg DAILYAC PO Last administered on 07/27/18at 08:07; Start 07/26/18 at 12:30 Budesonide (Pulmicort) 0.5 mg RTBID NEB Last administered on 07/27/18at 07:42; Start 07/26/18 at 20:00 Losartan Potassium (Cozaar) 100 mg DAILY PO Last administered on 07/26/18at 13: 04; Start 07/26/18 at 12:30; Stop 07/26/18 at 15:02; Status DC Torsemide (Demadex) 5 mg DAILY PO Last administered on 07/27/18at 08:07; Start 07/27/18 at 09:00 Methylprednisolone Sodium Succinate (SOLU-Medrol 40MG VIAL) 40 mg Q12HR IV ; Start 07/26/18 at 15:00; Status Cancel Heparin Sodium (Porcine) (Heparin Sodium) 5,000 unit Q8HRS SQ ; Start 07/26/18 at 15:00 Doxycycline Hyclate (Vibra-Tab) 100 mg BID PO ; Start 07/26/18 at 15:00; Status Cancel Losartan Potassium (Cozaar) 50 mg DAILY PO Last administered on 07/27/18at 08:08 ; Start 07/27/18 at 09:00 Magnesium Sulfate 50 ml @ 25 mls/hr 1X ONCE IV Last administered on 07/26/18at 15:53; Start 07/26/18 at 15:30; Stop 07/26/18 at 17:29; Status DC Doxycycline Hyclate (Vibra-Tab) 100 mg BID PO Last administered on 07/27/18at 08 :11; Start 07/26/18 at 21:00 Methylprednisolone Sodium Succinate (SOLU-Medrol 40MG VIAL) 40 mg Q12HR IV Last administered on 07/27/18at 08:10; Start 07/26/18 at 21:00 Furosemide (Lasix) 40 mg 1X ONCE IVP Last administered on 07/26/18at 17:36; Start 07/26/18 at 15:15; Stop 07/26/18 at 15:17; Status DC Active Scripts Active Flovent 110MCG Hfa (Fluticasone Propionate) 12 Gm Aer.w.adap 2 Puff IH BID Protonix (Pantoprazole Sodium) 40 Mg Tablet 40 Mg PO DAILYAC [Ipratropium/Albuterol Sulfate] 3 ML Nebu 3 Ml NEB RTQID Reported Losartan Potassium 100 Mg Tablet 100 Mg PO DAILY Amlodipine Besylate 10 Mg Tablet 10 Mg PO DAILY [torsemide] 5 Mg PO DAILY Stiolto Respimat Inhal [place] (Tiotropium Br/Olodaterol HCl) 4 Gm Mist.inhal 2.5 Mcg IH DAILY Atorvastatin Calcium 40 Mg Tablet 40 Mg PO HS Vitamin C (Ascorbic Acid) 500 Mg Tablet 500 Mg PO DAILY Ventolin Hfa Inhaler (Albuterol Sulfate) 18 Gm Hfa.aer.ad 2 Puff INH Q4HRS PRN Vitals/I & O Vital Sign - Last 24 Hours 07/26/18 07/26/18 07/26/18 07/26/18 14:28 15:03 15:50 17:36 Pulse 106 Resp 20 B/P (MAP) 129/74 (92) Pulse Ox 90 94 O2 Delivery Nasal Cannula Nasal Cannula Nasal Cannula Nasal Cannula O2 Flow Rate 5.0 5.0 5.0 07/26/18 07/26/18 07/26/18 07/26/18 17:50 19:00 19:37 19:54 Temp 97.6 97.6 Pulse 99 86 Resp 20 B/P (MAP) 108/52 (70) 103/49 (67) Pulse Ox 92 94 O2 Delivery Nasal Cannula Nasal Cannula Nasal Cannula O2 Flow Rate 5.0 5.0 5.0 07/26/18 07/26/18 07/26/18 07/26/18 19:54 20:00 23:00 23:53 Temp 97.8 97.8 Pulse 98 Resp 20 B/P (MAP) 110/65 (80) Pulse Ox 94 93 90 O2 Delivery Nasal Cannula Nasal Cannula Room Air Nasal Cannula O2 Flow Rate 5.0 5.0 5.0 5.0 07/27/18 07/27/18 07/27/18 07/27/18 03:00 03:51 07:15 07:33 Temp 97.7 97.7 97.7 97.7 Pulse 101 85 Resp 20 18 B/P (MAP) 109/57 (74) 106/50 (68) Pulse Ox 94 100 O2 Delivery Nasal Cannula Nasal Cannula Nasal Cannula Nasal Cannula O2 Flow Rate 5.0 5.0 5.0 5.0 07/27/18 07/27/18 07/27/18 07/27/18 07:43 08:08 10:53 11:38 Temp 97.6 97.6 Pulse 85 86 Resp 22 B/P (MAP) 106/50 105/56 (72) Pulse Ox 93 93 O2 Delivery Nasal Cannula Nasal Cannula Nasal Cannula O2 Flow Rate 5.0 5.0 5.0 Intake and Output 07/26/18 07/26/18 07/27/18 15:01 23:01 07:01 Intake Total 150 ml 300 ml Balance 150 ml 300 ml HYUN PETER III DO Jul 27, 2018 13:15
[2018-07-27 15:26] VITALS: BP 103/61
--- NOTE | 2018-07-27 17:08 | PDOC ---
PULMONARY PROGRESS NOTES Vitals Vital Signs Date Time Temp Pulse Resp B/P (MAP) Pulse Ox O2 Delivery O2 Flow Rate FiO2 07/27/18 15:32 Nasal Cannula 5.0 07/27/18 15:26 98.1 98 20 103/61 (75) 92 98.1 General: Alert, No acute distress HEENT: Other Lungs: Clear Cardiovascular: S1, S2 Abdomen: Soft, Non-tender Extremities: No Edema Labs Laboratory Tests Test 07/26/18 08:10 07/26/18 09:05 07/26/18 10:33 07/26/18 14:25 White Blood Count 8.7 x10^3/uL (4.0-11.0) Red Blood Count 3.19 x10^6/uL (3.50-5.40) Hemoglobin 11.9 g/dL (12.0-15.5) Hematocrit 34.3 % (36.0-47.0) Mean Corpuscular Volume 106 fL (79-100) Mean Corpuscular Hemoglobin 37 pg (25-35) Mean Corpuscular Hemoglobin Concent 35 g/dL (31-37) Red Cell Distribution Width 18.6 % (11.5-14.5) Platelet Count 346 x10^3/uL (140-400) Neutrophils (%) (Auto) 82 % (31-73) Lymphocytes (%) (Auto) 8 % (24-48) Monocytes (%) (Auto) 5 % (0-9) Eosinophils (%) (Auto) 5 % (0-3) Basophils (%) (Auto) 0 % (0-3) Neutrophils # (Auto) 7.1 x10^3uL (1.8-7.7) Lymphocytes # (Auto) 0.7 x10^3/uL (1.0-4.8) Monocytes # (Auto) 0.4 x10^3/uL (0.0-1.1) Eosinophils # (Auto) 0.5 x10^3/uL (0.0-0.7) Basophils # (Auto) 0.0 x10^3/uL (0.0-0.2) Prothrombin Time 13.6 SEC (11.7-14.0) Prothromb Time International Ratio 1.1 (0.8-1.1) Sodium Level 142 mmol/L (136-145) Potassium Level 3.8 mmol/L (3.5-5.1) Chloride Level 101 mmol/L (98-107) Carbon Dioxide Level 25 mmol/L (21-32) Anion Gap 16 (6-14) Blood Urea Nitrogen 44 mg/dL (7-20) Creatinine 6.4 mg/dL (0.6-1.0) Estimated GFR (Cockcroft-Gault) 6.6 BUN/Creatinine Ratio 7 (6-20) Glucose Level 103 mg/dL (70-99) Calcium Level 9.2 mg/dL (8.5-10.1) Magnesium Level 1.7 mg/dL (1.8-2.4) Total Bilirubin 0.4 mg/dL (0.2-1.0) Aspartate Amino Transf (AST/SGOT) 12 U/L (15-37) Alanine Aminotransferase (ALT/SGPT) 13 U/L (14-59) Alkaline Phosphatase 44 U/L (46-116) Troponin I Quantitative < 0.017 ng/mL (0.000-0.055) PY-Yga-H-Type Natriuretic Peptide 2626 pg/mL (0-124) Total Protein 6.9 g/dL (6.4-8.2) Albumin 3.3 g/dL (3.4-5.0) Albumin/Globulin Ratio 0.9 (1.0-1.7) Influenza Type A Antigen Negative (NEGATIVE) Influenza Type B Antigen Negative (NEGATIVE) O2 Saturation 90 % (92-99) Arterial Blood pH 7.44 (7.35-7.45) Arterial Blood pCO2 at Patient Temp 33 mmHg (35-46) Arterial Blood pO2 at Patient Temp 63 mmHg (65-108) Arterial Blood HCO3 22 mmol/L (21-28) Arterial Blood Base Excess -2 mmol/L (-3-3) FiO2 40 Test 07/27/18 05:13 White Blood Count 7.4 x10^3/uL (4.0-11.0) Red Blood Count 3.00 x10^6/uL (3.50-5.40) Hemoglobin 11.0 g/dL (12.0-15.5) Hematocrit 32.7 % (36.0-47.0) Mean Corpuscular Volume 109 fL (79-100) Mean Corpuscular Hemoglobin 37 pg (25-35) Mean Corpuscular Hemoglobin Concent 34 g/dL (31-37) Red Cell Distribution Width 19.4 % (11.5-14.5) Platelet Count 352 x10^3/uL (140-400) Neutrophils (%) (Auto) 92 % (31-73) Lymphocytes (%) (Auto) 5 % (24-48) Monocytes (%) (Auto) 4 % (0-9) Eosinophils (%) (Auto) 0 % (0-3) Basophils (%) (Auto) 0 % (0-3) Neutrophils # (Auto) 6.8 x10^3uL (1.8-7.7) Lymphocytes # (Auto) 0.3 x10^3/uL (1.0-4.8) Monocytes # (Auto) 0.3 x10^3/uL (0.0-1.1) Eosinophils # (Auto) 0.0 x10^3/uL (0.0-0.7) Basophils # (Auto) 0.0 x10^3/uL (0.0-0.2) Segmented Neutrophils % 96 % (35-66) Lymphocytes % 3 % (24-48) Monocytes % 1 % (0-10) Platelet Estimate Adequate (ADEQUATE) Anisocytosis Slight Macrocytosis Slight Sodium Level 133 mmol/L (136-145) Potassium Level 4.7 mmol/L (3.5-5.1) Chloride Level 94 mmol/L (98-107) Carbon Dioxide Level 23 mmol/L (21-32) Anion Gap 16 (6-14) Blood Urea Nitrogen 80 mg/dL (7-20) Creatinine 9.0 mg/dL (0.6-1.0) Estimated GFR (Cockcroft-Gault) 4.4 Glucose Level 120 mg/dL (70-99) Calcium Level 9.5 mg/dL (8.5-10.1) Laboratory Tests Test 07/27/18 05:13 White Blood Count 7.4 x10^3/uL (4.0-11.0) Red Blood Count 3.00 x10^6/uL (3.50-5.40) Hemoglobin 11.0 g/dL (12.0-15.5) Hematocrit 32.7 % (36.0-47.0) Mean Corpuscular Volume 109 fL (79-100) Mean Corpuscular Hemoglobin 37 pg (25-35) Mean Corpuscular Hemoglobin Concent 34 g/dL (31-37) Red Cell Distribution Width 19.4 % (11.5-14.5) Platelet Count 352 x10^3/uL (140-400) Neutrophils (%) (Auto) 92 % (31-73) Lymphocytes (%) (Auto) 5 % (24-48) Monocytes (%) (Auto) 4 % (0-9) Eosinophils (%) (Auto) 0 % (0-3) Basophils (%) (Auto) 0 % (0-3) Neutrophils # (Auto) 6.8 x10^3uL (1.8-7.7) Lymphocytes # (Auto) 0.3 x10^3/uL (1.0-4.8) Monocytes # (Auto) 0.3 x10^3/uL (0.0-1.1) Eosinophils # (Auto) 0.0 x10^3/uL (0.0-0.7) Basophils # (Auto) 0.0 x10^3/uL (0.0-0.2) Segmented Neutrophils % 96 % (35-66) Lymphocytes % 3 % (24-48) Monocytes % 1 % (0-10) Platelet Estimate Adequate (ADEQUATE) Anisocytosis Slight Macrocytosis Slight Sodium Level 133 mmol/L (136-145) Potassium Level 4.7 mmol/L (3.5-5.1) Chloride Level 94 mmol/L (98-107) Carbon Dioxide Level 23 mmol/L (21-32) Anion Gap 16 (6-14) Blood Urea Nitrogen 80 mg/dL (7-20) Creatinine 9.0 mg/dL (0.6-1.0) Estimated GFR (Cockcroft-Gault) 4.4 Glucose Level 120 mg/dL (70-99) Calcium Level 9.5 mg/dL (8.5-10.1) Medications Active Scripts Medications Dose Route/Sig Max Daily Dose Days Date Category Losartan Potassium 100 Mg Tablet 100 Mg PO DAILY 07/19/18 Reported Amlodipine Besylate 10 Mg Tablet 10 Mg PO DAILY 12/21/17 Reported [torsemide] 5 Mg PO DAILY 12/21/17 Reported Stiolto Respimat Inhal [place] (Tiotropium Br/Olodaterol HCl) 4 Gm Mist.inhal 2.5 Mcg IH DAILY 12/21/17 Reported Flovent 110MCG Hfa (Fluticasone Propionate) 12 Gm Aer.w.adap 2 Puff IH BID 12/29/16 Rx Protonix (Pantoprazole Sodium) 40 Mg Tablet 40 Mg PO DAILYAC 04/11/15 Rx [Ipratropium/Albuterol Sulfate] 3 ML Nebu 3 Ml NEB RTQID 04/11/15 Rx Atorvastatin Calcium 40 Mg Tablet 40 Mg PO HS 04/07/15 Reported Vitamin C (Ascorbic Acid) 500 Mg Tablet 500 Mg PO DAILY 03/30/15 Reported Ventolin Hfa Inhaler (Albuterol Sulfate) 18 Gm Hfa.aer.ad 2 Puff INH Q4HRS PRN 03/30/15 Reported Impression . DICTATED HOME RX FOR PRED/DOXY AND 02 FOLLOW UP IN OFFICE CAMRON SIMON MD Jul 27, 2018 17:08
--- NOTE | 2018-07-27 17:44 | NUR ---
Discharge Note: LUCÍA SEVILLA [address] Discharge instructions and discharge home medications reviewed with Patient and a copy given. All questions have been answered and understanding verbalized. The following instructions and handouts were given: information about COPD Discontinued lines and drains: IV line in right AC removed, catheter tip intact. Patient discharged to home with self care with , wheelchair used for mobility to discharge vehicle.
[2018-07-27] MEDS ORDERED: LACTOBACILLUS RHAMNOSUS GG 1 CAPSULE. PO SCH (21:00)
--- NOTE | 2018-07-27 21:42 | CONS ---
DATE OF CONSULTATION: 07/27/2018 REASON FOR CONSULTATION: The patient seen in pulmonary consultation at the request of Dr. Hamilton for increasing shortness of air. HISTORY OF PRESENT ILLNESS: The patient is a 63-year-old that smokes, never had asthma, presented with increasing shortness of breath, cough, mostly nonproductive. Does not utilize oxygen at home. Smokes. Denies fever, chills, no hemoptysis. She is up-to-date on her flu and pneumonia. She was short of breath doing dialysis. PAST MEDICAL HISTORY: COPD, tobacco dependent, end-stage renal disease, and hypertension. PAST SURGICAL HISTORY: Previous left upper arm fistula. REVIEW OF SYSTEMS: As indicated above, otherwise, a 10-point system was reviewed and negative. CURRENT MEDICATIONS: List was reviewed. PHYSICAL EXAMINATION: VITAL SIGNS: Stable. O2 saturation was greater than 92%, currently on oxygen supplementation. HEENT: Eyes: The sclerae were nonicteric. NECK: Jugular venous distention was not elevated. No lymphadenopathy. CHEST: Full expansion. LUNGS: Adequate airway flow with some wheezes. CARDIOVASCULAR: Regular rate and rhythm with S1, S2, no S3. ABDOMEN: Soft, nontender, nondistended. EXTREMITIES: No clubbing, cyanosis or edema. NEUROLOGIC: The patient was awake, alert, following commands. A detailed neuro exam was not performed. LABORATORY DATA: Arterial blood gas; pH of 7.44, PaCO2 of 33, pO2 of 63 on 3 L. White count was normal. Electrolytes were noted. BUN and creatinine were elevated. AST, ALT were noted. BNP was elevated. IMAGING DATA: Chest x-ray reveals some cardiomegaly with mild basilar scarring. IMPRESSION: 1. Acute respiratory failure. 2. Acute exacerbation of chronic obstructive pulmonary disease. 3. Tobacco dependent. 4. End-stage renal disease. 5. Abnormal x-ray. PLAN: 1. The patient wishes to be discharged home. Prescription written for prednisone and doxycycline. 2. A 6-minute walk. She requires oxygen supplementation at 4 L continuously. A prescription was written. I do appreciate the privilege in sharing in the patient's care. She will follow up in the outpatient department. CAMRON SIMON MD DR: KADEN/jose JOB#: [id number] / [id number]
--- NOTE | 2018-08-17 12:10 | DS ---
DATE OF DISCHARGE: 07/27/2018 ADMISSION DIAGNOSES: Respiratory failure with chronic obstructive pulmonary disease. DISCHARGE DIAGNOSIS: Resolving respiratory failure. HOSPITAL COURSE: The patient is a pleasant 63-year-old female who presented with COPD and respiratory failure. She was admitted. We gave her steroids, breathing treatments, oxygen and antibiotics, consulted Pulmonary, did physical therapy and occupational therapy. Over the next few days, she did better. We discharged home with steroid taper. DISPOSITION: Home. ACTIVITY: As tolerated. DIET: Low sodium. MEDICATIONS: Please see the MRAD. TOTAL TIME: 35 minutes. HYUN PETER DO DR: MICHAEL/jose JOB#: [id number] / [id number]
== END 2018-07-27 17:44 | disposition home or self-care (01) | DRG 291 ==
LOC: ER 07:37 → 6 SOUTH 09:45
PROVIDERS: ADMIT Internal Medicine; ATTEND Internal Medicine
DX: I13.2 Hypertensive heart and chronic kidney disease with heart failure and with stage 5 chronic kidney disease, or end stage renal disease (principal); J96.01 Acute respiratory failure with hypoxia; N18.6 End stage renal disease; I50.33 Acute on chronic diastolic (congestive) heart failure; J44.0 Chronic obstructive pulmonary disease with (acute) lower respiratory infection; J44.1 Chronic obstructive pulmonary disease with (acute) exacerbation; Z68.41 Body mass index [BMI] 40.0-44.9, adult; E66.01 Morbid (severe) obesity due to excess calories; E78.00 Pure hypercholesterolemia, unspecified; E78.5 Hyperlipidemia, unspecified; F17.200 Nicotine dependence, unspecified, uncomplicated; Z82.49 Family history of ischemic heart disease and other diseases of the circulatory system; Z99.2 Dependence on renal dialysis; H26.9 Unspecified cataract
CPT/HCPCS: 36415; 36600; 71045; 80048; 80053; 82805; 83735; 83880; 84484; 85007; 85025; 85610; 87040; 87804; 93005; 94618; 94640; 94760; 96374; 99406; J1940; J2920; J2930; J3475; J3490; J7613; J7620; J7626; 99285-25; G0378

== ENCOUNTER → 2018-11-29 | Outpatient (CLI) | payer MEDICARE ==
[~2018-11-29] MED LIST changes: -MONT10TA49 PO; +MONT10TA6 PO; +PANT40TA3 PO; -PANT40TA77 PO
--- NOTE | 2018-11-30 09:22 | SLEEP ---
DATE OF STUDY: 11/29/2018 ATTENDING PHYSICIAN: Dr. Carrie Rios. The patient is 63 years old who weighs 215 pounds with a BMI of 41. The patient's Cameron score was 11. The patient underwent split night study performed at [facility]. The patient uses oxygen continuously at 2 liters at night time. This study was performed on room air During the night study, the patient spent 407 minutes in bed and slept for 302 minutes with a sleep efficiency of 74%. Sleep latency was 12 minutes with a REM latency of 196 minutes. Overall, sleep architecture showed normal stage 1 sleep, increased stage 2 sleep, normal slow wave sleep and normal REM sleep. During the initial diagnostic portion of the study, the patient slept for 95 minutes. During that time, there were 7 obstructive apneas, no mixed or central apneas and 92 hypopneas. The patient's apnea hypopnea index was 63 per hour, supine index 66 per hour. REM sleep was not seen during the diagnostic portion. EKG monitoring revealed normal sinus rhythm, average heart rate 86 beats per minute, occasional PVCs seen. No sustained arrhythmias observed. Nocturnal oximetry study revealed a mean oxygen saturation of 87% with the lowest of 65%. 84% of time oxygen saturation remained between 80% and 89% and 15% of the time between 70% and 79%. PLMS were seen at index of 76 per hour and 15 per hour caused EEG arousals. The patient met the criteria for CPAP initiation. It was started at 5 cm water and titrated up to 20 cm water. However, the patient did reasonably well at 15 cm water with an AHI of 2.8 per hour. However, there was no supine or REM sleep seen at that pressure. The patient was switched to BiPAP at 20/14, but only 5 minutes of sleep was observed. AHI, however, was 0 per hour. Oxygen saturations remained in the mid 70s to low 80s and hypoxia did persist despite improvement in respiratory events. Optimum CPAP-BiPAP pressure was not achieved. I would recommend that the patient should be placed on auto BiPAP. IMPRESSION: 1. Severe sleep apnea-hypopnea syndrome at an AHI of 63 per hour. 2. Nocturnal hypoxia secondary to combination of obstructive sleep apnea and suspected hypoventilation. However, underlying pulmonary or cardiac conditions contributing to hypoxic could also be a consideration. 3. Severe PLMS at an index of 76 per hour and 15 per hour caused EEG arousals. This can also contribute to daytime sleepiness. RECOMMENDATIONS: 1. Optimum CPAP/BiPAP pressure was not achieved on this split night study. I would recommend that the patient should be placed on an auto BiPAP at a maximum IPAP pressure of 22 and a minimum EPAP pressure of 14 cm water with pressure support of 4. 2. The patient should also be using oxygen 2 liters with the BiPAP at nighttime. The patient did show some intolerance to PAP therapy. The patient could be desensitized to the Pap devices to improve compliance. 3. Weight loss is strongly advised. 4. Avoid D[employer]TER depressants. 5. Caution regarding driving until symptoms of sleep apnea resolve with above recommendation. 6. The patient's PLMS can be treated with dopaminergic agonist agents. The patient should also be further evaluated for symptoms of restless legs during the day. MAURY BELLE MD DR: RENU/jose JOB#: [id number] / [id number] CARRIE Courtney
== END | disposition home or self-care (01) ==
LOC: SLPLAB 18:26
PROVIDERS: ATTEND Physician Assistant Surgical
DX: G47.33 Obstructive sleep apnea (adult) (pediatric) (principal); G47.34 Idiopathic sleep related nonobstructive alveolar hypoventilation; I12.9 Hypertensive chronic kidney disease with stage 1 through stage 4 chronic kidney disease, or unspecified chronic kidney disease; N18.4 Chronic kidney disease, stage 4 (severe); E78.5 Hyperlipidemia, unspecified; J44.9 Chronic obstructive pulmonary disease, unspecified; E66.1 Drug-induced obesity; M85.80 Other specified disorders of bone density and structure, unspecified site; M17.9 Osteoarthritis of knee, unspecified; E11.22 Type 2 diabetes mellitus with diabetic chronic kidney disease; E55.9 Vitamin D deficiency, unspecified; Z72.0 Tobacco use; Z68.41 Body mass index [BMI] 40.0-44.9, adult; Z79.899 Other long term (current) drug therapy
CPT/HCPCS: 95810

== ENCOUNTER 2018-12-25 20:21 | Emergency (ER) | payer MEDICARE ==
[~2018-12-25] VITALS: Ht 152.4 cm; Wt 96.6 kg
[~2018-12-25 20:21] MED LIST changes: +MONT10TA49 PO; -MONT10TA6 PO
[2018-12-25 20:39] VITALS: BP 129/60
[2018-12-25] MEDS ORDERED: HYDR-2761 PO (21:34)
[2018-12-25] MEDS ORDERED: AMOX1TAB61 PO (21:34)
--- NOTE | 2018-12-25 21:34 | PHYS DOC ---
Past Medical History Past Medical History: Asthma, COPD, High Cholesterol, Hypertension, Renal Failure (JOYCE JANE APRN) Past Surgical History: , Other Additional Past Surgical Histo: cataract; L upper arm fistula (JOYCE JANE APRN) Alcohol Use: None Drug Use: None (JOYCE JANE APRN) Adult General Chief Complaint Chief Complaint: DENTAL PROBLEM HPI HPI Patient is a 63 year old female who presents to the emergency department with complaints of right dental pain has gradually increased in severity over the last 3 days. She states that the pain is now radiating to her right ear. In addition patient complains of a productive cough with yellow sputum for the last 5 or 6 days. She states she is a smoker and has a history of COPD. Currently, she rates her pain a 10 out of 10 on the pain scale, there are no alleviating factors. She denies any nausea, vomiting, abdominal pain, diarrhea, shortness of breath, or fever. She is speaking full sentences and smells strongly of cigarette smoke at this time. (JOYCE JANE APRN) Review of Systems Review of Systems Constitutional: Denies fever or chills [] Eyes: Denies change in visual acuity, redness, or eye pain [] HENT: Denies nasal congestion or sore throat; see history of present illness [] Respiratory: Denies shortness of breath [; see history of present illness Cardiovascular: No additional information not addressed in HPI [] GI: Denies abdominal pain, nausea, vomiting, or diarrhea [] Musculoskeletal: Denies back pain or joint pain [] Integument: Denies rash or skin lesions [] Neurologic: Denies headache, focal weakness or sensory changes [] (JOYCE JANE APRN) Current Medications Current Medications Current Medications Medications (Trade) Dose Ordered Sig/Aki Start Time Stop Time Status Last Admin Dose Admin Acetaminophen/ Hydrocodone Bitart (Lortab 5/325) 1 tab 1X ONCE 12/25/18 21:45 12/25/18 21:46 DC 12/25/18 21:45 1 TAB (TORI ALVA DO) Allergies Allergies Allergies Coded Allergies Type Severity Reaction Last Updated Verified No Known Drug Allergies 07/19/18 No (TORI ALVA DO) Physical Exam Physical Exam Constitutional: Well developed, well nourished, no acute distress, non-toxic appearance. [] HENT: Normocephalic, atraumatic, bilateral external ears normal, oropharynx moist, no oral exudates, nose normal; right lower posterior molar under to palpation noted to have heavy decay with mild gingival erythema without dental abscess present, multiple missing teeth Eyes: conjunctiva normal, no discharge. [] Neck: Normal range of motion, no stridor. [] Cardiovascular:Heart rate regular rhythm, no murmur [] Lungs & Thorax: Bilateral breath sounds coarse throughout with occasional expiratory wheeze, no retractions, regular rate. Skin: Warm, dry, no erythema, no rash. [] Extremities: No cyanosis, no clubbing, ROM intact, no edema. [] Neurologic: Alert and oriented X 3, no focal deficits noted. [] Psychologic: Affect normal, judgement normal, mood normal. [] (JOYCE JANE APRN) Current Patient Data Vital Signs Vital Signs Date Time Temp Pulse Resp B/P (MAP) Pulse Ox O2 Delivery O2 Flow Rate FiO2 12/25/18 21:45 16 99 Room Air 12/25/18 20:39 99.0 98 129/60 (83) 99.0 (TORI ALVA DO) EKG EKG [] (JOYCE JANE APRN) Radiology/Procedures Radiology/Procedures [] (JOYCE JANE APRN) Course & Med Decision Making Course & Med Decision Making Pertinent Labs and Imaging studies reviewed. (See chart for details) dx: Infected dental caries, dentalgia, acute bronchitis Prescription written for Augmentin. Tylenol or ibuprofen as needed for pain. Was given 1 hydrocodone in the emergency Department for acute pain. Fill prescription and use as directed. Follow up with dentist using the referral list provided. Avoid exposure to airway irritants, follow-up with primary care doctor if symptoms persist, return to the ER if symptoms worsen. Patient verbalized an understanding of home care, medications, follow-up, and return to ED instructions and was in agreement with the plan of care. [] (JOCYE JANE APRN) Dragon Disclaimer Dragon Disclaimer This electronic medical record was generated, in whole or in part, using a voice recognition dictation system. (JOYCE JANE APRN) Departure Departure Impression: Primary Impression: Infected dental caries Additional Impressions: Dentalgia Bronchitis Disposition: HOME, SELF-CARE Condition: STABLE Referrals: JANEY MARIE (PCP) Patient Instructions: Acute Bronchitis, Wzff-ud-Foms, Dental Pain, [id number] Additional Instructions: Fill prescriptions and use as directed. Follow up with dentist using the referral list provided. Avoid exposure to airway irritants, follow-up with her primary care doctor this week if symptoms persist. Return to the ER if symptoms worsen. Scripts Amoxicillin/Potassium Clav (AUGMENTIN 875-125 TABLET) 1 Each Tablet 1 TAB PO BID, #20 TAB Prov: JOYCE JANE APRN 12/25/18 Attending Signature Attending Signature I have reviewed the PA/BRICK POINTER's note and plan of care. I was available for consultation as needed during the patient's visit in the emergency department. I agree with the clinical impression, plan, and disposition. (TORI ALVA DO) Problem Qualifiers JOYCE JANE APRN Dec 25, 2018 21:34 TORI ALVA DO Dec 28, 2018 18:54
[2018-12-25] MEDS: HYDROcodone/APAP 5/325MG 1 TAB TABLET PO ONE (21:45)
== END 2018-12-25 21:57 | disposition home or self-care (01) ==
LOC: ER 20:21
DX: J40 Bronchitis, not specified as acute or chronic (principal); K04.7 Periapical abscess without sinus; K08.89 Other specified disorders of teeth and supporting structures; J44.9 Chronic obstructive pulmonary disease, unspecified; E78.00 Pure hypercholesterolemia, unspecified; I12.9 Hypertensive chronic kidney disease with stage 1 through stage 4 chronic kidney disease, or unspecified chronic kidney disease; N18.9 Chronic kidney disease, unspecified
CPT/HCPCS: 99283

== ENCOUNTER 2019-03-30 05:15 | Inpatient (IN) | payer MEDICARE ==
[~2019-03-30] VITALS: Ht 157.5 cm; Wt 97.5 kg
[~2019-03-30 05:15] MED LIST changes: +AMOX1TAB61 PO; +AZIT1PAC PO; +CALC667T4 PO; +HYDR-2761 PO; +LEVO500T59 PO; -PANT40TA3 PO; +PANT40TA77 PO
[2019-03-30] MEDS ORDERED: ALBUTEROL SULFATE 2.5 MG/3 ML NEBU. ONE (05:18)
[2019-03-30] MEDS ORDERED: IPRATRPIUM/ALBUTEROL 0.5/2.5MG 3 ML NEBU. ONE (05:18)
[2019-03-30] MEDS ORDERED: DEXAMETHASONE SOD PHOS 20 MG/5 ML VIAL. IV ONE (05:30)
[2019-03-30] MEDS ORDERED: IV NORMAL SALINE 1000ML BAG 1,000 ML IV ONE (05:30)
[2019-03-30] MEDS ORDERED: ALBUTEROL SULFATE 2.5 MG/3 ML NEBU. CONT NEB ONE (05:30)
[2019-03-30] MEDS ORDERED: IPRATRPIUM/ALBUTEROL 0.5/2.5MG 3 ML NEBU. NEB ONE (05:30)
[2019-03-30] MEDS ORDERED: ONDANSETRON PF 4 MG/2 ML VIAL. IV PRN (05:45)
[2019-03-30] MEDS ORDERED: IPRATRPIUM/ALBUTEROL 0.5/2.5MG 3 ML NEBU. NEB PRN (05:45)
[2019-03-30 05:46] LABS: CALCIUM 8.8 mg/dL (8.5-10.1); CREATININE 8.6 mg/dL (0.6-1.0); GFR 4.7; POTASSIUM 4.9 mmol/L (3.5-5.1)
[2019-03-30 05:55] LABS: PROTHROMBIN TIME PATIENT 13.2 SEC (11.7-14.0)
--- NOTE | 2019-03-30 05:57 | PHYS DOC ---
Past Medical History Past Medical History: Asthma, COPD, High Cholesterol, Hypertension, Renal Failure Past Surgical History: , Other Additional Past Surgical Histo: cataract; L upper arm fistula Smoking: Cigarettes Alcohol Use: None Drug Use: None Adult General Chief Complaint Chief Complaint: SHORTNESS OF BREATH HPI HPI 64-year-old female with past medical history of COPD and end-stage renal disease on hemodialysis Wednesday//Wednesday presents with report of worsening dyspnea since being discharged yesterday. Patient reports she was seen in the hospital for pneumonia. Patient reports she was sent home with prescription for steroids, and breathing treatments. Reports is on chronic supplemental oxygen at 2 L via nasal cannula. Reports has had to increase her oxygenation to 5 L. Reports despite outpatient remedies her breathing became significantly or difficult this morning. Denies fever or chills. Denies trauma. Review of Systems Review of Systems Constitutional: Denies fever or chills Eyes: Denies redness or eye pain HENT: Denies nasal congestion or sore throat Respiratory: Reports cough, wheezing, and shortness of breath Cardiovascular: Denies chest pain or palpitations GI: Denies abdominal pain, nausea, or vomiting : Denies dysuria or hematuria Musculoskeletal: Denies back pain or joint pain Integument: Denies rash or skin lesions Neurologic: Denies headache, focal weakness or sensory changes Complete systems were reviewed and found to be within normal limits, except as documented in this note. Current Medications Current Medications Current Medications Medications (Trade) Dose Ordered Sig/Aki Start Time Stop Time Status Last Admin Dose Admin Albuterol Sulfate (Ventolin Neb Soln) 2.5 mg STK-MED ONCE 03/30/19 05:18 03/30/19 05:18 DC Albuterol/ Ipratropium (Duoneb) 3 ml STK-MED ONCE 03/30/19 05:18 03/30/19 05:19 DC Dexamethasone Sodium Phosphate (Decadron) 10 mg 1X ONCE 03/30/19 05:30 03/30/19 05:31 DC 03/30/19 05:37 10 MG Sodium Chloride 1,000 ml @ 1,000 mls/hr 1X ONCE 03/30/19 05:30 03/30/19 05:28 DC Allergies Allergies Allergies Coded Allergies Type Severity Reaction Last Updated Verified No Known Drug Allergies 07/19/18 No Physical Exam Physical Exam Constitutional: Well developed, well nourished, obese, moderate respiratory distress, able to speak 2-3 words before becoming dyspneic, patient smells heavily of cigarette smoke HENT: Normocephalic, atraumatic, oropharynx moist Eyes Conjunctiva normal, no discharge Neck: Normal range of motion, no tenderness, supple Cardiovascular: Heart rate tachycardic, regular rhythm Lungs & Thorax: Bilateral breath sounds with diffuse wheezing, diminished at bases with poor aeration Abdomen: Soft, no tenderness, obese Skin: Warm, dry, no erythema, no rash Extremities: No tenderness, ROM intact, 1+ bilateral lower extremity edema, left upper arm AV fistula with good thrill Neurologic: Alert and oriented X 3, no focal deficits noted Psychologic: Affect normal, judgement normal Current Patient Data Vital Signs Vital Signs Date Time Temp Pulse Resp B/P (MAP) Pulse Ox O2 Delivery O2 Flow Rate FiO2 03/30/19 05:20 94 NonRebreather Mask 15.0 03/30/19 05:17 98.2 113 41 146/83 (104) 98.2 Lab Values Laboratory Tests Test 03/30/19 05:20 White Blood Count 21.2 x10^3/uL (4.0-11.0) H Red Blood Count 3.16 x10^6/uL (3.50-5.40) L Hemoglobin 11.5 g/dL (12.0-15.5) L Hematocrit 35.2 % (36.0-47.0) L Mean Corpuscular Volume 112 fL (79-100) H Mean Corpuscular Hemoglobin 36 pg (25-35) H Mean Corpuscular Hemoglobin Concent 33 g/dL (31-37) Red Cell Distribution Width 17.0 % (11.5-14.5) H Platelet Count 278 x10^3/uL (140-400) Neutrophils (%) (Auto) 81 % (31-73) H Lymphocytes (%) (Auto) 11 % (24-48) L Monocytes (%) (Auto) 8 % (0-9) Eosinophils (%) (Auto) 0 % (0-3) Basophils (%) (Auto) 0 % (0-3) Neutrophils # (Auto) 17.2 x10^3/uL (1.8-7.7) H Lymphocytes # (Auto) 2.4 x10^3/uL (1.0-4.8) Monocytes # (Auto) 1.7 x10^3/uL (0.0-1.1) H Eosinophils # (Auto) 0.0 x10^3/uL (0.0-0.7) Basophils # (Auto) 0.0 x10^3/uL (0.0-0.2) Prothrombin Time 13.2 SEC (11.7-14.0) Prothrombin Time INR 1.0 (0.8-1.1) Activated Partial Thromboplast Time 21 SEC (24-38) L Sodium Level 138 mmol/L (136-145) Potassium Level 4.9 mmol/L (3.5-5.1) Chloride Level 99 mmol/L (98-107) Carbon Dioxide Level 25 mmol/L (21-32) Anion Gap 14 (6-14) Blood Urea Nitrogen 95 mg/dL (7-20) H Creatinine 8.6 mg/dL (0.6-1.0) H Estimated GFR (Cockcroft-Gault) 4.7 BUN/Creatinine Ratio 11 (6-20) Glucose Level 112 mg/dL (70-99) H Lactic Acid Level 1.5 mmol/L (0.4-2.0) Calcium Level 8.8 mg/dL (8.5-10.1) Magnesium Level 1.8 mg/dL (1.8-2.4) Total Bilirubin 0.4 mg/dL (0.2-1.0) Aspartate Amino Transferase (AST) 17 U/L (15-37) Alanine Aminotransferase (ALT) 18 U/L (14-59) Alkaline Phosphatase 151 U/L (46-116) H Creatine Kinase 151 U/L (26-192) Creatine Kinase MB (Mass) 8.7 ng/mL (0.0-3.6) H Creatine Kinase MB Relative Index 5.8 % (0-4) H Troponin I Quantitative 0.019 ng/mL (0.000-0.055) UM-Ill-Z-Type Natriuretic Peptide 1876 pg/mL (0-124) H Total Protein 6.8 g/dL (6.4-8.2) Albumin 3.6 g/dL (3.4-5.0) Albumin/Globulin Ratio 1.1 (1.0-1.7) Laboratory Tests 03/30/19 05:20 Laboratory Tests 03/30/19 05:20 EKG EKG @0517 Sinus tachycardia at 116bpm, NO ST elevation, wandering baseline Radiology/Procedures Radiology/Procedures PROCEDURE: PORTABLE CHEST 1V AP chest x-ray HISTORY: Dyspnea. COMPARISON: Chest x-ray done 2018. FINDINGS: Azygos lobe at the right upper lobe apex. Aortic arch calcified plaque. Heart size stable. No pneumothorax or pleural effusions. Right medial basilar lower lobe heterogeneous opacity is stable. Left lung is clear. Bones unremarkable. IMPRESSION: Stable airspace disease of the right medial basilar lower lobe. Electronically signed by: Freddie Noriega MD (03/30/2019 5:58 AM) [facility] Course & Med Decision Making Course & Med Decision Making Pertinent Labs and Imaging studies reviewed. (See chart for details) Patient presents after recent admission for similar with worsening of respirat ory status. Patient with diffuse wheezing and poor aeration with hypoxia down to 68%. Patient requiring nonrebreather with DuoNeb followed by continuous albuterol treatment �1 hour. Symptomatic steroid provided. EKG stable. Labs obtained and posted to chart. WBC elevated. WBC combined with HR and RR is positive for SIRS. Possible continued pneumonia on CXR. Lactic acid WNL. BCX pending. Empiric antibiotics given. Given respiratory status, hypoxia, and failure of outpatient therapy patient requiring admission for further evaluation and treatment. Discussed with Dr. Luke (PCP) who is in agreement with admission. Pulmonology consultation ordered. Consult also placed for nephrology for patient's HD. Discussed findings and plan with patient and family, who acknowledge understanding and agreement. Dragon Disclaimer Dragon Disclaimer This electronic medical record was generated, in whole or in part, using a voice recognition dictation system. Departure Departure Impression: Primary Impression: COPD exacerbation Additional Impressions: Hypoxia ESRD on dialysis Sepsis Disposition: ADMITTED INPATIENT Admitting Physician: Kendrick Luke Condition: GUARDED Referrals: JANEY MARIE (PCP) Critical Care Time Critical care time was 30 minutes which includes time at bedside, spent in discussion of patient's care with specialists and/or family members, with interpretation of laboratory and/or radiological studies and is exclusive of procedures. Sepsis Assessment Date and Time of Assessment Date: Mar 30, 2019 Time: 05:30 Fluid Challenge: Is the fluid challenge complet: No IBW Target Volume Used: No BMI > 30: Yes Vital Signs Vital Signs Vital Signs Date Time Temp Pulse Resp B/P (MAP) Pulse Ox O2 Delivery O2 Flow Rate FiO2 03/30/19 05:20 94 NonRebreather Mask 15.0 03/30/19 05:17 98.2 113 41 146/83 (104) 98.2 Temperature Source: Axillary Respirations Respiratory Effort: Nasal flaring, Shortness of air, Labored Respiratory Pattern: Tachypnea Cardiovascular Pulse Rhythm: Regular (with tachycardia) Lung Sounds Breath Sounds: Wheezes Capillary Refill Capillary Refill: Rt Hand < 3 seconds Peripheral Pulse Pulse Location: Radial Pulse Strength: Normal (2+) Pulse Assessment Method: Palpation Integumentary Skin: Warm, Dry Skin Moisture: Dry Skin Turgor: Normal Skin Color: warm, dry, edema Fingernail Color: WNL Problem Qualifiers Additional Impressions: Sepsis Sepsis type: sepsis due to unspecified organism Sepsis acute organ dysfun ction status: without acute organ dysfunction Qualified Codes: A41.9 - Sepsis, unspecified organism KENDRICK ALVA DO Mar 30, 2019 05:57
[2019-03-30 05:58] LABS: BASO % 0 % (0-3); EOS % 0 % (0-3); HEMATOCRIT 35.2 % (36.0-47.0); HEMOGLOBIN 11.5 g/dL (12.0-15.5); LYMPH # 2.4 x10^3/uL (1.0-4.8); LYMPH % 11 % (24-48); MEAN CORPUSCULAR HEMOGLOBIN 36 pg (25-35); MEAN CORPUSCULAR HGB CONC 33 g/dL (31-37); MEAN CORPUSCULAR VOLUME 112 fL (79-100); MONO # 1.7 x10^3/uL (0.0-1.1); MONO % 8 % (0-9); NEUT # 17.2 x10^3/uL (1.8-7.7); NEUT % 81 % (31-73); PLATELET COUNT 278 x10^3/uL (140-400); RED BLOOD COUNT 3.16 x10^6/uL (3.50-5.40); WHITE BLOOD COUNT 21.2 x10^3/uL (4.0-11.0)
[2019-03-30 06:00] LABS: ALBUMIN 3.6 g/dL (3.4-5.0); ALBUMIN/GLOBULIN RATIO 1.1 (1.0-1.7); MAGNESIUM 1.8 mg/dL (1.8-2.4); TOTAL BILIRUBIN 0.4 mg/dL (0.2-1.0); TOTAL PROTEIN 6.8 g/dL (6.4-8.2)
--- NOTE | 2019-03-30 06:00 | RAD ---
AP chest x-ray HISTORY: Dyspnea. COMPARISON: Chest x-ray done 2018. FINDINGS: Azygos lobe at the right upper lobe apex. Aortic arch calcified plaque. Heart size stable. No pneumothorax or pleural effusions. Right medial basilar lower lobe heterogeneous opacity is stable. Left lung is clear. Bones unremarkable. IMPRESSION: Stable airspace disease of the right medial basilar lower lobe. Electronically signed by: Freddie Noriega MD (03/30/2019 5:58 AM) [facility]
--- NOTE | 2019-03-30 06:07 | EKG ---
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
[2019-03-30] MEDS ORDERED: ACETAMINOPHEN 500 MG TABLET PO ONE (06:15)
[2019-03-30] MEDS ORDERED: PIPERACILLIN/TAZOBACTAM 4.5 GM in IV NORMAL SALINE 100ML 100 ML IV ONE (06:45)
[2019-03-30] MEDS: BUDESONIDE 0.5 MG/2 ML NEBU. NEB SCH ×2 (07:22→19:46)
[2019-03-30 08:10] VITALS: BP 144/75
[2019-03-30] MEDS ORDERED: IV NORMAL SALINE 1000ML BAG 1,000 ML IV PRN ×2 (09:29)
[2019-03-30] MEDS ORDERED: diphenhydrAMINE 50 MG/ML VIAL IV PRN ×2 (09:30)
[2019-03-30] MEDS ORDERED: DIALYSIS PATIENT. MC PRN (09:30)
[2019-03-30] MEDS ORDERED: LIDOCAINE 1% PF 2 ML VIAL. ONE ×2 (09:41→10:00)
[2019-03-30] MEDS ORDERED: ACETAMINOPHEN 500 MG TABLET PO PRN (09:45)
--- NOTE | 2019-03-30 10:36 | CONS ---
DATE OF CONSULTATION: 03/30/2019 PULMONARY CONSULTATION ATTENDING PHYSICIAN: Kendrick Luke MD REASON FOR CONSULTATION: Dyspnea. HISTORY OF PRESENT ILLNESS: This is a 64-year-old who was just discharged yesterday. She was recently admitted with acute exacerbation of chronic obstructive pulmonary disease. She was discharged on 4 liters of oxygen. She was also diagnosed with mycoplasma pneumonia. The patient states that at home, she started to have shortness of breath. No wheezing. She said she felt like she was going to pass out. The patient came back to the hospital. She said she was using 4 liters of oxygen. No chest pain, no headaches, no nausea, no vomiting, no diarrhea, no dysuria. No increased leg edema. Her chest x-ray revealed faint interstitial infiltrate in the right lower lobe. She is currently on a Venturi mask. I have been asked to see her for further evaluation. Her white cell count was 21,000. PAST MEDICAL HISTORY: End-stage renal disease, on hemodialysis, history of COPD, history of chronic hypoxic respiratory failure, history of ongoing tobaccoism, morbid obesity, and DAVID SURGERIES: Cataract surgery, , and AV fistula. FAMILY HISTORY: Coronary artery disease and hypertension. SOCIAL HISTORY: Continues to smoke cigarettes 1 pack a day since age 13. MEDICATIONS: All reviewed as listed in the MRAD including DuoNebs q.4 hours. She received IV Zosyn and IV steroids in the ER. REVIEW OF SYSTEMS: Twelve-point system obtained. Pertinent positives discussed in my history of present illness, otherwise noncontributory. All systems that were negative were reviewed as well. PHYSICAL EXAMINATION: VITAL SIGNS: Reviewed. Pulse ox 96% on Ventimask. Afebrile. HEENT: Sclerae nonicteric. NECK: Supple. LUNGS: With diffuse expiratory wheezes. CARDIOVASCULAR: Regular rate and rhythm. ABDOMEN: Soft, nontender. EXTREMITIES: With no pitting edema. LABORATORY DATA: Reviewed. White cell count 21.2, hemoglobin 11.5 and platelets are 278. BUN and creatinine 95 and 8.6. IMPRESSION: 1. Recurrent chronic respiratory failure secondary to acute exacerbation of chronic obstructive pulmonary disease with diffuse bronchospasm. 2. Recent mycoplasma pneumonia. 3. End-stage renal disease, on hemodialysis. 4. Abnormal chest x-ray with faint interstitial infiltrates related to mycoplasma pneumonia. RECOMMENDATIONS: 1. Continue present Venturi mask. 2. Increase DuoNebs to every 4 hours. Add Pulmicort and continue with steroids. 3. Discontinue Zosyn and switch her to oral Zithromax for mycoplasma pneumonia. 4. Continue hemodialysis with ultrafiltration, although clinically not in heart failure. 5. We will follow along with you. MAURY BELLE MD DR: RENU/jose JOB#: [id number] / [id number]
[2019-03-30] MEDS: IPRATRPIUM/ALBUTEROL 0.5/2.5MG 3 ML NEBU. NEB SCH ×3 (11:26→19:46)
--- NOTE | 2019-03-30 12:26 | PDOC2 ---
AMENA AMOR CUSTOMER RETENTION SPECIALIST 03/30/19 1226: CARDIAC CONSULT DATE OF CONSULT Date of Consult DATE: 03/30/19 TIME: 12:19 REASON FOR CONSULT Reason for Consult: Elevated troponin REFERRING PHYSICIAN Referring Physician: Dr. Luke SOURCE Source: Chart review, Patient HISTORY OF PRESENT ILLNESS HISTORY OF PRESENT ILLNESS This is a 64 yo female who presented secondary to shortness of breath. Patient has been hospitalized this past week due to AE COPD and PNA. Was discharged yesterday. Patient reports she was feeling well upon discharge. Got home about 2pm. Yesterday evening, began feeling short of breath again. Shortness of breath progressed overnight so she returned to the ED for further evaluation and treatment. Troponin noted to be mildly elevated, which prompted this consult. Patient denies any chest pain, dizziness, diaphoresis, palpitations, or nausea/vomiting. PAST MEDICAL HISTORY Cardiovascular: HTN, Hyperlipidemia Pulmonary: COPD, Pneumonia, Other (DAVID) Heme/Onc: Anemia NOS Renal/: Chronic renal failure PAST SURGICAL HISTORY Past Surgical History: Cataract Removal, , Other (AV fistula ) FAMILY HISTORY Family History: Heart Disease (father ), Hypertension SOCIAL HISTORY Smoke: 1 pack per day ALCOHOL: none Drugs: None Lives: with Family CURRENT MEDICATIONS CURRENT MEDICATIONS Current Medications Medications (Trade) Dose Ordered Sig/Aki Route PRN Reason Start Time Stop Time Status Last Admin Dose Admin Albuterol/ Ipratropium (Duoneb) 3 ml 1X ONCE NEB 03/30/19 05:30 03/30/19 05:31 DC 03/30/19 05:33 Albuterol Sulfate (Ventolin Neb Soln) 10 mg 1X ONCE CONT NEB 03/30/19 05:30 03/30/19 05:31 DC 03/30/19 05:33 Dexamethasone Sodium Phosphate (Decadron) 10 mg 1X ONCE IV 03/30/19 05:30 03/30/19 05:31 DC 03/30/19 05:37 Albuterol/ Ipratropium (Duoneb) 3 ml Q4HRS PRN NEB WHEEZING 03/30/19 05:45 03/30/19 10:30 DC 03/30/19 07:23 Acetaminophen (Tylenol) 500 mg 1X ONCE PO 03/30/19 06:15 03/30/19 06:16 DC 03/30/19 06:09 Budesonide (Pulmicort) 0.5 mg RTBID [facility] 03/30/19 08:00 03/30/19 07:23 Acetaminophen (Tylenol) 500 mg 1X PRN PRN PO MILD PAIN / TEMP 03/30/19 09:45 03/31/19 09:44 03/30/19 10:31 Albuterol/ Ipratropium (Duoneb) 3 ml RTQID [facility] 03/30/19 12:00 03/30/19 11:26 ALLERGIES ALLERGIES: Coded Allergies: No Known Drug Allergies (Unverified , 07/19/18) ROS Review of System 14 point ROS conducted with pertinent positives noted above in HPI. PHYSICAL EXAM General: Alert, Oriented X3, Cooperative, No acute distress, mild distress HEENT: Atraumatic, Mucous membr. moist/pink Lungs: Other (significant wheezing throughout ) Heart: Regular rate (SR/ST), Normal S1, Normal S2, Other (distant heart tones ) Abdomen: Soft Extremities: Other (trace bilateral LE edema ) Skin: No significant lesion Neuro: Normal speech, Sensation intact Psych/Mental Status: Mental status NL, Mood NL MUSCULOSKELETAL: Osteoarthritic changes both hands VITALS/I&O VITALS/I&O: Vital Signs Date Time Temp Pulse Resp B/P (MAP) Pulse Ox O2 Delivery O2 Flow Rate FiO2 03/30/19 11:27 96 Venturi Mask 15.0 03/30/19 08:10 97.8 111 22 144/75 (98) 97.8 LABS Lab: Laboratory Tests Test 03/30/19 05:20 03/30/19 08:30 White Blood Count 21.2 x10^3/uL (4.0-11.0) H Red Blood Count 3.16 x10^6/uL (3.50-5.40) L Hemoglobin 11.5 g/dL (12.0-15.5) L Hematocrit 35.2 % (36.0-47.0) L Mean Corpuscular Volume 112 fL (79-100) H Mean Corpuscular Hemoglobin 36 pg (25-35) H Mean Corpuscular Hemoglobin Concent 33 g/dL (31-37) Red Cell Distribution Width 17.0 % (11.5-14.5) H Platelet Count 278 x10^3/uL (140-400) Neutrophils (%) (Auto) 81 % (31-73) H Lymphocytes (%) (Auto) 11 % (24-48) L Monocytes (%) (Auto) 8 % (0-9) Eosinophils (%) (Auto) 0 % (0-3) Basophils (%) (Auto) 0 % (0-3) Neutrophils # (Auto) 17.2 x10^3/uL (1.8-7.7) H Lymphocytes # (Auto) 2.4 x10^3/uL (1.0-4.8) Monocytes # (Auto) 1.7 x10^3/uL (0.0-1.1) H Eosinophils # (Auto) 0.0 x10^3/uL (0.0-0.7) Basophils # (Auto) 0.0 x10^3/uL (0.0-0.2) Prothrombin Time 13.2 SEC (11.7-14.0) Prothrombin Time INR 1.0 (0.8-1.1) Activated Partial Thromboplast Time 21 SEC (24-38) L Sodium Level 138 mmol/L (136-145) Potassium Level 4.9 mmol/L (3.5-5.1) Chloride Level 99 mmol/L (98-107) Carbon Dioxide Level 25 mmol/L (21-32) Anion Gap 14 (6-14) Blood Urea Nitrogen 95 mg/dL (7-20) H Creatinine 8.6 mg/dL (0.6-1.0) H Estimated GFR (Cockcroft-Gault) 4.7 BUN/Creatinine Ratio 11 (6-20) Glucose Level 112 mg/dL (70-99) H Lactic Acid Level 1.5 mmol/L (0.4-2.0) Calcium Level 8.8 mg/dL (8.5-10.1) Magnesium Level 1.8 mg/dL (1.8-2.4) Total Bilirubin 0.4 mg/dL (0.2-1.0) Aspartate Amino Transferase (AST) 17 U/L (15-37) Alanine Aminotransferase (ALT) 18 U/L (14-59) Alkaline Phosphatase 151 U/L (46-116) H Creatine Kinase 151 U/L (26-192) Creatine Kinase MB (Mass) 8.7 ng/mL (0.0-3.6) H Creatine Kinase MB Relative Index 5.8 % (0-4) H Troponin I Quantitative 0.019 ng/mL (0.000-0.055) 0.077 ng/mL (0.000-0.055) IA-Kfv-O-Type Natriuretic Peptide 1876 pg/mL (0-124) H Total Protein 6.8 g/dL (6.4-8.2) Albumin 3.6 g/dL (3.4-5.0) Albumin/Globulin Ratio 1.1 (1.0-1.7) Laboratory Tests 03/30/19 05:20 Laboratory Tests 03/30/19 05:20 ECHOCARDIOGRAM ECHOCARDIOGRAM <Conclusion> Left ventricle systolic function is normal. The Ejection Fraction is 60-65%. There is normal LV segmental wall motion. DATE: 12/28/16 1525 ASSESSMENT/PLAN ASSESSMENT/PLAN 1. Acute on chronic respiratory failure with AE COPD and PNA 2. Mild troponin elevation; highest 0.077. Most probably type II, demand ischemia 3. Hypertension; fairly well controlled 4. Hyperlipidemia; statin 5. ESRD on HD 6. Leukocytosis, PNA Recommendations Trend troponin Lipid panel ASA Echo to assess LV systolic function Fluid offloading/management via HD as per nephrology Supportive care Lung optimization as per pulmonary Further pending above. Consider outpatient ischemic evaluation RAOLDO PATTERSON MD 03/30/19 1636: CARDIAC CONSULT ASSESSMENT/PLAN ASSESSMENT/PLAN Patient seen and examined. Agree with SUPERINTENDENT FACTORY's assessment and plan. Slight troponin elevation already demand ischemia/non-STEMI type II 2-D echo showed normal LV systolic function Continue fluid removal with hemodialysis per nephrology team Continue current treatment for acute COPD exacerbation per pulmonary team We will consider ischemic evaluation as an outpatient Thank you for your consultation AMENA AMOR APRN Mar 30, 2019 12:26 AROLDO PATTERSON MD Mar 30, 2019 16:36
[2019-03-30 12:57] LABS: CHOLESTEROL/HDL RATIO 2.2
--- NOTE | 2019-03-30 13:26 | PDOC2 ---
CONSULT Date of Consult Date of Consult DATE: 03/30/19 TIME: 13:18 Reason for Consult Reason for Consult: ESRD Identification/Chief Complaint Chief Complaint Shortness of breath Source Source: Chart review, Patient History of Present Illness Reason for Visit: Pt is 64-year-old CF ESRD on HD she was discharged yesterday , readmitted with same complaints of SOB . She was discharged on 4 liters of oxygen and was also diagnosed with mycoplasma pneumonia. She states that at home she started to have shortness of breath again and felt like she was going to pass out. No chest pain, no headaches, no nausea, no vomiting, no diarrhea, no dysuria. No increased leg edema. Chest x-ray revealed faint interstitial infiltrate in the right lower lobe. Today is her scheduled Dialysis day - she is tolerating dialysis well but continues to have SOB and is on venturi mask Past Medical History Cardiovascular: HTN, Hyperlipidemia Pulmonary: COPD, Pneumonia, Other (DAVID) GI: No pertinent hx Heme/Onc: Anemia NOS Hepatobiliary: No pertinent hx Psych: No pertinent hx Rheumatologic: Other Renal/: Chronic renal failure Endocrine: Osteopenia Past Surgical History Past Surgical History: Cataract Removal, , Other Family History Family History: Coronary Artery Disease, Hypertension Social History ALCOHOL: none Drugs: None Current Problem List Problem List Problems Medical Problems: (1) ESRD on dialysis Status: Chronic (2) Sepsis Status: Acute Current Medications Current Medications Current Medications Albuterol/ Ipratropium (Duoneb) 3 ml 1X ONCE NEB Last administered on 03/30/19at 05:33; Start 03/30/19 at 05:30; Stop 03/30/19 at 05:31; Status DC Albuterol Sulfate (Ventolin Neb Soln) 10 mg 1X ONCE CONT NEB Last administered on 03/30/19at 05:33; Start 03/30/19 at 05:30; Stop 03/30/19 at 05:31; Status DC Albuterol Sulfate (Ventolin Neb Soln) 2.5 mg STK-MED ONCE .ROUTE ; Start 03/30/19 at 05:18; Stop 03/30/19 at 05:18; Status DC Albuterol/ Ipratropium (Duoneb) 3 ml STK-MED ONCE .ROUTE ; Start 03/30/19 at 05:18; Stop 03/30/19 at 05:19; Status DC Sodium Chloride 1,000 ml @ 1,000 mls/hr 1X ONCE IV ; Start 03/30/19 at 05:30; Stop 03/30/19 at 05:28; Status DC Dexamethasone Sodium Phosphate (Decadron) 10 mg 1X ONCE IV Last administered on 03/30/19at 05:37; Start 03/30/19 at 05:30; Stop 03/30/19 at 05:31; Status DC Ondansetron HCl (Zofran) 4 mg PRN Q8HRS PRN IV NAUSEA/VOMITING; Start 03/30/19 at 05:45; Stop 03/31/19 at 05:44 Albuterol/ Ipratropium (Duoneb) 3 ml Q4HRS PRN NEB WHEEZING Last administered on 03/30/19at 07:23; Start 03/30/19 at 05:45; Stop 03/30/19 at 10:30; Status DC Acetaminophen (Tylenol) 500 mg 1X ONCE PO Last administered on 03/30/19at 06:09; Start 03/30/19 at 06:15; Stop 03/30/19 at 06:16; Status DC Budesonide (Pulmicort) 0.5 mg RTBID NEB Last administered on 03/30/19at 07:23; Start 03/30/19 at 08:00 Piperacillin Sod/ Tazobactam Sod 4.5 gm/Sodium Chloride 100 ml @ 200 mls/hr 1X ONCE IV ; Start 03/30/19 at 06:45; Stop 03/30/19 at 07:14; Status DC Sodium Chloride 1,000 ml @ 1,000 mls/hr Q1H PRN IV hypotension; Start 03/30/19 at 09:29; Stop 03/30/19 at 15:28 Diphenhydramine HCl (Benadryl) 25 mg 1X PRN PRN IV ITCHING; Start 03/30/19 at 09:30; Stop 03/31/19 at 09:29 Diphenhydramine HCl (Benadryl) 25 mg 1X PRN PRN IV ITCHING; Start 03/30/19 at 09:30; Stop 03/31/19 at 09:29 Sodium Chloride 1,000 ml @ 400 mls/hr Q2H30M PRN IV PATENCY; Start 03/30/19 at 09:29; Stop 03/30/19 at 21:28 Info (PHARMACY MONITORING -- do not chart) 1 each PRN DAILY PRN MC SEE COMMENTS; Start 03/30/19 at 09:30 Lidocaine HCl (Xylocaine-Mpf 1% 2ml Vial) 2 ml STK-MED ONCE .ROUTE ; Start 03/30/19 at 09:41; Stop 03/30/19 at 09:42; Status DC Acetaminophen (Tylenol) 500 mg 1X PRN PRN PO MILD PAIN / TEMP Last administered on 03/30/19at 10:31; Start 03/30/19 at 09:45; Stop 03/31/19 at 09:44 Methylprednisolone Sodium Succinate (SOLU-Medrol 40MG VIAL) 60 mg Q8HRS IV ; Start 03/30/19 at 14:00 Albuterol/ Ipratropium (Duoneb) 3 ml RTQID NEB Last administered on 03/30/19at 11:26; Start 03/30/19 at 12:00 Azithromycin (Zithromax) 250 mg DAILY PO ; Start 03/30/19 at 11:00 Ascorbic Acid (Vitamin C) 500 mg DAILY PO ; Start 03/30/19 at 13:30 Atorvastatin Calcium (Lipitor) 40 mg HS PO ; Start 03/30/19 at 21:00 Pantoprazole Sodium (Protonix) 40 mg DAILYAC PO ; Start 03/30/19 at 13:30 Albuterol Sulfate (Ventolin Neb Soln) 2.5 mg PRN Q4HRS PRN NEB SHORTNESS OF BREATH; Start 03/30/19 at 13:15 Calcium Acetate (Phoslo) 2,001 mg TIDWMEALS PO ; Start 03/30/19 at 13:30 Non-Formulary Medication (Fluticasone Propionate (Flovent 110MCG Hfa)) 2 puff BID IH ; Start 03/30/19 at 21:00; Status UNV Non-Formulary Medication (Tiotropium Br/ Olodaterol HCl (Stiolto Respimat Inhal [place])) 2.5 mcg DAILY IH ; Start 03/31/19 at 09:00; Status UNV Torsemide (Demadex) 5 mg DAILY PO ; Start 03/30/19 at 13:30 Active Scripts Active Prednisone (Prednisone) 10 Mg Tablet 10 Mg PO UD 10 Days Take 5 tablets by mouth daily for 2 days, then take 4 tablets by mouth daily for 2 days, then take 3 tablets by mouth daily for 2 days, then take 2 tablets by mouth daily for 2 days, then take 1 tablets by mouth daily for 2 days, then stop. Flovent 110MCG Hfa (Fluticasone Propionate) 12 Gm Aer.w.adap 2 Puff IH BID Protonix (Pantoprazole Sodium) 40 Mg Tablet 40 Mg PO DAILYAC Reported Calcium Acetate 667 Mg Tablet 3 Cap PO TIDWMEALS [torsemide] 5 Mg PO DAILY Stiolto Respimat Inhal [place] (Tiotropium Br/Olodaterol HCl) 4 Gm Mist.inhal 2.5 Mcg IH DAILY Atorvastatin Calcium 40 Mg Tablet 40 Mg PO HS Vitamin C (Ascorbic Acid) 500 Mg Tablet 500 Mg PO DAILY Ventolin Hfa Inhaler (Albuterol Sulfate) 18 Gm Hfa.aer.ad 2 Puff INH Q4HRS PRN Allergies Allergies: Coded Allergies: No Known Drug Allergies (Unverified , 07/19/18) ROS Review of System Per HPI Physical Exam Physical Exam GEN: mild distress HEEN: Venturi Mask NECK: Supple CVS: RRR RESP: Exp wheezes + GI: Non Tender : No Fermin Neuro Grossly normal Ext No edema Vital Signs Vital Signs Date Time Temp Pulse Resp B/P (MAP) Pulse Ox O2 Delivery O2 Flow Rate FiO2 03/30/19 11:27 96 Venturi Mask 15.0 03/30/19 08:10 97.8 111 22 144/75 (98) 97.8 Assessment & Plan ESRD - On HD TTS Dialysis today as ordered, Seen on dialysis ,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 Tobacco use- continues to smoke cigarettes Labs Labs Laboratory Tests Test 03/30/19 05:20 03/30/19 08:30 03/30/19 11:25 White Blood Count 21.2 x10^3/uL (4.0-11.0) Red Blood Count 3.16 x10^6/uL (3.50-5.40) Hemoglobin 11.5 g/dL (12.0-15.5) Hematocrit 35.2 % (36.0-47.0) Mean Corpuscular Volume 112 fL (79-100) Mean Corpuscular Hemoglobin 36 pg (25-35) Mean Corpuscular Hemoglobin Concent 33 g/dL (31-37) Red Cell Distribution Width 17.0 % (11.5-14.5) Platelet Count 278 x10^3/uL (140-400) Neutrophils (%) (Auto) 81 % (31-73) Lymphocytes (%) (Auto) 11 % (24-48) Monocytes (%) (Auto) 8 % (0-9) Eosinophils (%) (Auto) 0 % (0-3) Basophils (%) (Auto) 0 % (0-3) Neutrophils # (Auto) 17.2 x10^3/uL (1.8-7.7) Lymphocytes # (Auto) 2.4 x10^3/uL (1.0-4.8) Monocytes # (Auto) 1.7 x10^3/uL (0.0-1.1) Eosinophils # (Auto) 0.0 x10^3/uL (0.0-0.7) Basophils # (Auto) 0.0 x10^3/uL (0.0-0.2) Prothrombin Time 13.2 SEC (11.7-14.0) Prothromb Time International Ratio 1.0 (0.8-1.1) Activated Partial Thromboplast Time 21 SEC (24-38) Sodium Level 138 mmol/L (136-145) Potassium Level 4.9 mmol/L (3.5-5.1) Chloride Level 99 mmol/L (98-107) Carbon Dioxide Level 25 mmol/L (21-32) Anion Gap 14 (6-14) Blood Urea Nitrogen 95 mg/dL (7-20) Creatinine 8.6 mg/dL (0.6-1.0) Estimated GFR (Cockcroft-Gault) 4.7 BUN/Creatinine Ratio 11 (6-20) Glucose Level 112 mg/dL (70-99) Lactic Acid Level 1.5 mmol/L (0.4-2.0) Calcium Level 8.8 mg/dL (8.5-10.1) Magnesium Level 1.8 mg/dL (1.8-2.4) Total Bilirubin 0.4 mg/dL (0.2-1.0) Aspartate Amino Transf (AST/SGOT) 17 U/L (15-37) Alanine Aminotransferase (ALT/SGPT) 18 U/L (14-59) Alkaline Phosphatase 151 U/L (46-116) Creatine Kinase 151 U/L (26-192) Creatine Kinase MB (Mass) 8.7 ng/mL (0.0-3.6) Creatine Kinase MB Relative Index 5.8 % (0-4) Troponin I Quantitative 0.019 ng/mL (0.000-0.055) 0.077 ng/mL (0.000-0.055) 0.081 ng/mL (0.000-0.055) AG-Hhw-K-Type Natriuretic Peptide 1876 pg/mL (0-124) Total Protein 6.8 g/dL (6.4-8.2) Albumin 3.6 g/dL (3.4-5.0) Albumin/Globulin Ratio 1.1 (1.0-1.7) Triglycerides Level 91 mg/dL (0-150) Cholesterol Level 89 mg/dL (0-200) LDL Cholesterol, Calculated 30 mg/dL (0-100) VLDL Cholesterol, Calculated 18 mg/dL (0-40) Non-HDL Cholesterol Calculated 48 mg/dL (0-129) HDL Cholesterol 41 mg/dL (40-60) Cholesterol/HDL Ratio 2.2 Laboratory Tests Test 03/30/19 05:20 03/30/19 08:30 03/30/19 11:25 White Blood Count 21.2 x10^3/uL (4.0-11.0) Red Blood Count 3.16 x10^6/uL (3.50-5.40) Hemoglobin 11.5 g/dL (12.0-15.5) Hematocrit 35.2 % (36.0-47.0) Mean Corpuscular Volume 112 fL (79-100) Mean Corpuscular Hemoglobin 36 pg (25-35) Mean Corpuscular Hemoglobin Concent 33 g/dL (31-37) Red Cell Distribution Width 17.0 % (11.5-14.5) Platelet Count 278 x10^3/uL (140-400) Neutrophils (%) (Auto) 81 % (31-73) Lymphocytes (%) (Auto) 11 % (24-48) Monocytes (%) (Auto) 8 % (0-9) Eosinophils (%) (Auto) 0 % (0-3) Basophils (%) (Auto) 0 % (0-3) Neutrophils # (Auto) 17.2 x10^3/uL (1.8-7.7) Lymphocytes # (Auto) 2.4 x10^3/uL (1.0-4.8) Monocytes # (Auto) 1.7 x10^3/uL (0.0-1.1) Eosinophils # (Auto) 0.0 x10^3/uL (0.0-0.7) Basophils # (Auto) 0.0 x10^3/uL (0.0-0.2) Prothrombin Time 13.2 SEC (11.7-14.0) Prothromb Time International Ratio 1.0 (0.8-1.1) Activated Partial Thromboplast Time 21 SEC (24-38) Sodium Level 138 mmol/L (136-145) Potassium Level 4.9 mmol/L (3.5-5.1) Chloride Level 99 mmol/L (98-107) Carbon Dioxide Level 25 mmol/L (21-32) Anion Gap 14 (6-14) Blood Urea Nitrogen 95 mg/dL (7-20) Creatinine 8.6 mg/dL (0.6-1.0) Estimated GFR (Cockcroft-Gault) 4.7 BUN/Creatinine Ratio 11 (6-20) Glucose Level 112 mg/dL (70-99) Lactic Acid Level 1.5 mmol/L (0.4-2.0) Calcium Level 8.8 mg/dL (8.5-10.1) Magnesium Level 1.8 mg/dL (1.8-2.4) Total Bilirubin 0.4 mg/dL (0.2-1.0) Aspartate Amino Transf (AST/SGOT) 17 U/L (15-37) Alanine Aminotransferase (ALT/SGPT) 18 U/L (14-59) Alkaline Phosphatase 151 U/L (46-116) Creatine Kinase 151 U/L (26-192) Creatine Kinase MB (Mass) 8.7 ng/mL (0.0-3.6) Creatine Kinase MB Relative Index 5.8 % (0-4) Troponin I Quantitative 0.019 ng/mL (0.000-0.055) 0.077 ng/mL (0.000-0.055) 0.081 ng/mL (0.000-0.055) KS-Cyy-Z-Type Natriuretic Peptide 1876 pg/mL (0-124) Total Protein 6.8 g/dL (6.4-8.2) Albumin 3.6 g/dL (3.4-5.0) Albumin/Globulin Ratio 1.1 (1.0-1.7) Triglycerides Level 91 mg/dL (0-150) Cholesterol Level 89 mg/dL (0-200) LDL Cholesterol, Calculated 30 mg/dL (0-100) VLDL Cholesterol, Calculated 18 mg/dL (0-40) Non-HDL Cholesterol Calculated 48 mg/dL (0-129) HDL Cholesterol 41 mg/dL (40-60) Cholesterol/HDL Ratio 2.2 Review All relevant outside records, renal labs, imaging studies, telemetry/EKG's were reviewed. Images Images IMPRESSION: Stable airspace disease of the right medial basilar lower lobe. HETAL FRIED MD Mar 30, 2019 13:26
[2019-03-30] MEDS: PANTOPRAZOLE 40 MG TABLET.DR. PO SCH (13:33)
[2019-03-30] MEDS: AZITHROMYCIN 250 MG TABLET. PO SCH (13:33)
[2019-03-30] MEDS: TORSEMIDE 20 MG TABLET. PO SCH (13:34)
[2019-03-30] MEDS: ASCORBIC ACID 500 MG TABLET PO SCH (13:34)
[2019-03-30] MEDS: methylPREDNISolone SOD SUCC PF 40 MG/ML VIAL. IV SCH ×2 (13:34→21:57)
[2019-03-30] MEDS: CALCIUM ACETATE 667 MG CAPSULE PO SCH ×2 (13:35→16:44)
--- NOTE | 2019-03-30 14:02 | HP ---
ADMIT DATE: 03/30/2019 HISTORY OF PRESENT ILLNESS: This is a readmission. She was discharged less than 24 hours ago due to exacerbation of COPD. The patient went home and began smoking again and began having increasing shortness of breath and came to the Emergency Room for further evaluation. She was found to have oxygen sats in the 80s and pO2 of less than 60. Despite ER aggressive nebulizer treatments, she was unable to oxygenate well, therefore she was admitted to the hospital for further evaluation, pulmonary toilet. The patient is due for dialysis and will have cardiology evaluation due to slightly elevated troponin. Please refer to previous H and P for further history and physical. ASSESSMENT: 1. Chronic obstructive pulmonary disease exacerbation. 2. Acute on chronic respiratory failure. 3. End-stage renal disease, on dialysis. PLAN: To reinstitute oxygen support, breathing treatments and IV steroids and continue Zithromax for MAC. Case discussed with Dr. Rodriguez. TORI OVERTON MD DR: SOHAN/jose JOB#: [id number] / [id number]
--- NOTE | 2019-03-30 15:44 | CARD ---
MR#: [id number] Date of Study: 03/30/2019 Ordering Physician: AMENA AMOR, Referring Physician: AMENA AMOR Tech: Steven Momin [facility] APPROVED REPORT EXAM: Two-dimensional and M-mode echocardiogram with Doppler and color Doppler. Other Information Quality : PoorHR: 114bpm Rhythm : TachycardiaTechnically limited study due to smoking. INDICATION Congestive Heart Failure RISK FACTORS Hypertension Obesity 2D DIMENSIONS RVDd3.4 (2.9-3.5cm)Left Atrium(2D)2.9 (1.6-4.0cm) IVSd1.0 (0.7-1.1cm)Aortic Root(2D)2.4 (2.0-3.7cm) LVDd3.7 (3.9-5.9cm)PWd1.1 (0.7-1.1cm) LVDs1.9 (2.5-4.0cm)FS (%) 48.9 % SV46.4 mlLVEF(%)81.1 (>50%) Aortic Valve AoV Peak Pj.196.7cm/sAoV VTI30.3cm AO Peak GR.15.5mmHgLVOT Peak Pj.170.1cm/s AO Mean GR.7mmHg Mitral Valve MV E Dwffvwto01.6cm/sMV DECEL [id number] MV A Hsundrvt413.5cm/sE/A Ratio0.7 Tricuspid Valve TR P. Ojcbryea374th/sTR Peak Gr.41mmHg LEFT VENTRICLE The left ventricle is normal size. There is borderline to mild concentric left ventricular hypertroph y. The left ventricular systolic function is normal and the ejection fraction is within normal range. EF 55% There is normal LV segmental wall motion. Tissue Doppler imaging reveals moderate left ventri cular diastolic dysfunction. RIGHT VENTRICLE The right ventricle is mildly dilated. The right ventricle is mildly hypertrophied. The right ventric ular systolic function is normal. ATRIA The left atrium size is normal. The right atrium size is normal. The interatrial septum is intact wit h no evidence for an atrial septal defect or patent foramen ovale as noted on 2-D or Doppler imaging. AORTIC VALVE The aortic valve is mildly thickened but opens well. Doppler and Color Flow revealed no significant a ortic regurgitation. There is no significant aortic valvular stenosis. MITRAL VALVE Mildly calcified posterior leaflet. There is no evidence of mitral valve prolapse. There is no mitral valve stenosis. Doppler and Color Flow revealed no mitral valve regurgitation noted. TRICUSPID VALVE The tricuspid valve is normal in structure and function. Doppler and Color Flow revealed trace tricus pid regurgitation. Estimated PAP 51mmHg. There is no tricuspid valve prolapse or vegetation. There is no tricuspid valve stenosis. PULMONIC VALVE Doppler and Color Flow revealed no pulmonic valvular regurgitation. There is no pulmonic valvular ervin nosis. GREAT VESSELS The aortic root is normal in size. The ascending aorta is normal in size. IVC is dialated and collaps es more than 50% with respiration PERICARDIAL EFFUSION There is no evidence of significant pericardial effusion. Critical Notification Critical Value: No <Conclusion> The left ventricular systolic function is normal and the ejection fraction is within normal range. EF 55% Tissue Doppler imaging reveals moderate left ventricular diastolic dysfunction. There is normal LV segmental wall motion. The right ventricle is mildly hypertrophied. Doppler and Color Flow revealed trace tricuspid regurgitation. Estimated PAP 51mmHg. IVC is dialated and collapses more than 50% with respiration Signed by : Robbie Gregory, Electronically Approved : 03/30/2019 15:43:35
[2019-03-30] MEDS: ACETAMINOPHEN 325 MG TABLET. PO PRN (16:45)
[2019-03-30] MEDS: ASPIRIN ENTERIC COATED 81 MG TABLET.DR. PO SCH (16:46)
[2019-03-30 19:45] VITALS: BP 106/73
[2019-03-30] MEDS ORDERED: NON FORMULARY ITEM (Fluticasone Propionate (Flovent 110MCG Hfa) 2 PUFF) IH SCH (21:00)
[2019-03-30] MEDS: ATORVASTATIN CALCIUM 40 MG TABLET. PO SCH (21:56)
[2019-03-30 23:45] VITALS: BP 124/52
[2019-03-31] MEDS: ACETAMINOPHEN 325 MG TABLET. PO PRN ×2 (03:01→22:49)
[2019-03-31 03:45] VITALS: BP 131/75
[2019-03-31] MEDS: methylPREDNISolone SOD SUCC PF 40 MG/ML VIAL. IV SCH ×3 (05:37→22:50)
[2019-03-31] MEDS: BUDESONIDE 0.5 MG/2 ML NEBU. NEB SCH ×2 (06:29→20:32)
[2019-03-31] MEDS: IPRATRPIUM/ALBUTEROL 0.5/2.5MG 3 ML NEBU. NEB SCH ×4 (06:29→20:32)
[2019-03-31 07:00] VITALS: BP 147/61
[2019-03-31] MEDS ORDERED: [UNRECOGNIZED DRUG - OTHER] IH SCH (09:00)
[2019-03-31] MEDS ORDERED: TIOTROPIUM BR IH SCH (09:00)
[2019-03-31] MEDS ORDERED: OLODATEROL HCL IH SCH (09:00)
[2019-03-31] MEDS: PANTOPRAZOLE 40 MG TABLET.DR. PO SCH (09:06)
[2019-03-31] MEDS: TORSEMIDE 20 MG TABLET. PO SCH (09:07)
[2019-03-31] MEDS: CALCIUM ACETATE 667 MG CAPSULE PO SCH ×3 (09:07→17:32)
[2019-03-31] MEDS: AZITHROMYCIN 250 MG TABLET. PO SCH (09:07)
[2019-03-31] MEDS: ASPIRIN ENTERIC COATED 81 MG TABLET.DR. PO SCH (09:07)
[2019-03-31] MEDS: ASCORBIC ACID 500 MG TABLET PO SCH (09:07)
--- NOTE | 2019-03-31 09:09 | PDOC ---
PULMONARY PROGRESS NOTES Subjective Pt. is up to chair this am, reports improvement with her breathing. she is currently on 5 liters N/C. She wants to switch back to Symbicort. Denies increased SOA or increased cough. Vitals Vital Signs Date Time Temp Pulse Resp B/P (MAP) Pulse Ox O2 Delivery O2 Flow Rate FiO2 03/31/19 07:00 98.7 91 20 147/61 (89) 91 Nasal Cannula 5.0 98.7 ROS: No Nausea, No Chest Pain, No Increase Cough General: Alert, Oriented X4, No acute distress HEENT: Other Lungs: Clear Cardiovascular: S1, S2 Abdomen: Soft, Non-tender Neuro Exam: Alert, Oriented, Normal Speech Extremities: No Edema Skin: Warm, Dry Labs Laboratory Tests Test 03/30/19 05:20 03/30/19 08:30 03/30/19 11:25 White Blood Count 21.2 x10^3/uL (4.0-11.0) Red Blood Count 3.16 x10^6/uL (3.50-5.40) Hemoglobin 11.5 g/dL (12.0-15.5) Hematocrit 35.2 % (36.0-47.0) Mean Corpuscular Volume 112 fL (79-100) Mean Corpuscular Hemoglobin 36 pg (25-35) Mean Corpuscular Hemoglobin Concent 33 g/dL (31-37) Red Cell Distribution Width 17.0 % (11.5-14.5) Platelet Count 278 x10^3/uL (140-400) Neutrophils (%) (Auto) 81 % (31-73) Lymphocytes (%) (Auto) 11 % (24-48) Monocytes (%) (Auto) 8 % (0-9) Eosinophils (%) (Auto) 0 % (0-3) Basophils (%) (Auto) 0 % (0-3) Neutrophils # (Auto) 17.2 x10^3/uL (1.8-7.7) Lymphocytes # (Auto) 2.4 x10^3/uL (1.0-4.8) Monocytes # (Auto) 1.7 x10^3/uL (0.0-1.1) Eosinophils # (Auto) 0.0 x10^3/uL (0.0-0.7) Basophils # (Auto) 0.0 x10^3/uL (0.0-0.2) Prothrombin Time 13.2 SEC (11.7-14.0) Prothromb Time International Ratio 1.0 (0.8-1.1) Activated Partial Thromboplast Time 21 SEC (24-38) Sodium Level 138 mmol/L (136-145) Potassium Level 4.9 mmol/L (3.5-5.1) Chloride Level 99 mmol/L (98-107) Carbon Dioxide Level 25 mmol/L (21-32) Anion Gap 14 (6-14) Blood Urea Nitrogen 95 mg/dL (7-20) Creatinine 8.6 mg/dL (0.6-1.0) Estimated GFR (Cockcroft-Gault) 4.7 BUN/Creatinine Ratio 11 (6-20) Glucose Level 112 mg/dL (70-99) Lactic Acid Level 1.5 mmol/L (0.4-2.0) Calcium Level 8.8 mg/dL (8.5-10.1) Magnesium Level 1.8 mg/dL (1.8-2.4) Total Bilirubin 0.4 mg/dL (0.2-1.0) Aspartate Amino Transf (AST/SGOT) 17 U/L (15-37) Alanine Aminotransferase (ALT/SGPT) 18 U/L (14-59) Alkaline Phosphatase 151 U/L (46-116) Creatine Kinase 151 U/L (26-192) Creatine Kinase MB (Mass) 8.7 ng/mL (0.0-3.6) Creatine Kinase MB Relative Index 5.8 % (0-4) Troponin I Quantitative 0.019 ng/mL (0.000-0.055) 0.077 ng/mL (0.000-0.055) 0.081 ng/mL (0.000-0.055) [id number]-Type Natriuretic Peptide 1876 pg/mL (0-124) Total Protein 6.8 g/dL (6.4-8.2) Albumin 3.6 g/dL (3.4-5.0) Albumin/Globulin Ratio 1.1 (1.0-1.7) Triglycerides Level 91 mg/dL (0-150) Cholesterol Level 89 mg/dL (0-200) LDL Cholesterol, Calculated 30 mg/dL (0-100) VLDL Cholesterol, Calculated 18 mg/dL (0-40) Non-HDL Cholesterol Calculated 48 mg/dL (0-129) HDL Cholesterol 41 mg/dL (40-60) Cholesterol/HDL Ratio 2.2 Laboratory Tests Test 03/30/19 11:25 Troponin I Quantitative 0.081 ng/mL (0.000-0.055) Medications Active Scripts Medications Dose Route/Sig Max Daily Dose Days Date Category Dose Instructions Prednisone (Prednisone) 10 Mg Tablet 10 Mg PO UD 10 03/29/19 Rx Take 5 tablets by mouth daily for 2 days, then take 4 tablets by mouth daily for 2 days, then take 3 tablets by mouth daily for 2 days, then take 2 tablets by mouth daily for 2 days, then take 1 tablets by mouth daily for 2 days, then stop. Calcium Acetate 667 Mg Tablet 3 Cap PO TIDWMEALS 03/13/19 Reported [torsemide] 5 Mg PO DAILY 12/21/17 Reported Stiolto Respimat Inhal [place] (Tiotropium Br/Olodaterol HCl) 4 Gm Mist.inhal 2.5 Mcg IH DAILY 12/21/17 Reported Flovent 110MCG Hfa (Fluticasone Propionate) 12 Gm Aer.w.adap 2 Puff IH BID 12/29/16 Rx Protonix (Pantoprazole Sodium) 40 Mg Tablet 40 Mg PO DAILYAC 04/11/15 Rx Atorvastatin Calcium 40 Mg Tablet 40 Mg PO HS 04/07/15 Reported Vitamin C (Ascorbic Acid) 500 Mg Tablet 500 Mg PO DAILY 03/30/15 Reported Ventolin Hfa Inhaler (Albuterol Sulfate) 18 Gm Hfa.aer.ad 2 Puff INH Q4HRS PRN 03/30/15 Reported Impression . 1. Recurrent chronic respiratory failure secondary to acute exacerbation of chronic obstructive pulmonary disease with diffuse bronchospasm. 2. Recent mycoplasma pneumonia. 3. End-stage renal disease, on hemodialysis. 4. Abnormal chest x-ray with faint interstitial infiltrates related to mycoplasma pneumonia. Plan . 1. Continue present oxygen 2. Increase DuoNebs to every 4 hours. Add Pulmicort and continue with steroids, will plan to taper slowly 3. Cont. Zithromax for mycoplasma pneumonia. 4. Continue hemodialysis with ultrafiltration, although clinically not in heart failure per nephrology recs 5. We will follow along with you. 6. ok to switch back to Symbicort in outpatient setting in combination with anticholinergic, Pt. reports better control of COPD on Symbicort 6. Discussed with MAURY STAFFORD MD Mar 31, 2019 09:09
[2019-03-31 11:00] VITALS: BP 127/51
--- NOTE | 2019-03-31 14:31 | PDOC ---
SUBJECTIVE ROS States feeling much better , On O2 OBJECTIVE Vital Signs Vital Signs Date Time Temp Pulse Resp B/P (MAP) Pulse Ox O2 Delivery O2 Flow Rate FiO2 03/31/19 11:28 93 Nasal Cannula 5.0 03/31/19 11:00 99.4 20 127/51 (76) 99.4 03/31/19 07:00 91 I & 0 Intake and Output 03/31/19 06:59 Intake Total 400 ml Balance 400 ml Intake Oral 400 ml # Voids 1 PHYSICAL EXAM Physical Exam GEN: NaD HEEN: O2 by nc NECK: Supple CVS: RRR RESP: Exp wheezes + GI: Non Tender : No Fermin Neuro Grossly normal Ext No edema DIAGNOSIS/ASSESSMENT Assessment & Plan ESRD - On HD TTS No indication for HD today HTN - On antihypertensives including diuretics per home list Anemia- No indication for DARRICK Recurrent chronic respiratory failure secondary to acute exacerbation of chronic obstructive pulmonary disease with diffuse bronchospasm. Tobacco use- continues to smoke cigarettes COMMENT/RELEVANT DATA Meds Current Medications Medications (Trade) Dose Ordered Sig/Aki Start Time Stop Time Status Last Admin Dose Admin Acetaminophen (Tylenol) 650 mg PRN Q6HRS PRN 03/30/19 16:30 03/31/19 03:01 650 MG Albuterol Sulfate (Ventolin Neb Soln) 2.5 mg PRN Q4HRS PRN 03/30/19 13:15 Albuterol/ Ipratropium (Duoneb) 3 ml RTQID 03/30/19 12:00 03/31/19 11:27 3 ML Ascorbic Acid (Vitamin C) 500 mg DAILY 03/30/19 13:30 03/31/19 09:08 500 MG Aspirin (Ecotrin) 81 mg DAILYWBKFT 03/30/19 17:00 03/31/19 09:08 81 MG Atorvastatin Calcium (Lipitor) 40 mg HS 03/30/19 21:00 03/30/19 21:57 40 MG Azithromycin (Zithromax) 250 mg DAILY 03/30/19 11:00 03/31/19 09:08 250 MG Budesonide (Pulmicort) 0.5 mg RTBID 03/30/19 08:00 03/31/19 06:29 0.5 MG Calcium Acetate (Phoslo) 2,001 mg TIDWMEALS 03/30/19 13:30 03/31/19 12:00 2,001 MG Dexamethasone Sodium Phosphate (Decadron) 10 mg 1X ONCE 03/30/19 05:30 03/30/19 05:31 DC 03/30/19 05:37 10 MG Diphenhydramine HCl (Benadryl) 25 mg 1X PRN PRN 03/30/19 09:30 03/31/19 09:29 DC Info (PHARMACY MONITORING -- do not chart) 1 each PRN DAILY PRN 03/30/19 09:30 Lidocaine HCl (Xylocaine-Mpf 1% 2ml Vial) 2 ml STK-MED ONCE 03/30/19 10:00 03/31/19 09:22 DC Methylprednisolone Sodium Succinate (SOLU-Medrol 40MG VIAL) 60 mg Q8HRS 03/30/19 14:00 03/31/19 14:17 60 MG Non-Formulary Medication (Fluticasone Propionate (Flovent 110MCG Hfa)) 2 puff BID 03/30/19 21:00 UNV Non-Formulary Medication (Tiotropium Br/ Olodaterol HCl (Stiolto Respimat Inhal [place])) 2.5 mcg DAILY 03/31/19 09:00 UNV Ondansetron HCl (Zofran) 4 mg PRN Q8HRS PRN 03/30/19 05:45 03/31/19 05:44 DC Pantoprazole Sodium (Protonix) 40 mg DAILYAC 03/30/19 13:30 03/31/19 09:08 40 MG Piperacillin Sod/ Tazobactam Sod 4.5 gm/Sodium Chloride 100 ml @ 200 mls/hr 1X ONCE 03/30/19 06:45 03/30/19 07:14 DC Sodium Chloride 1,000 ml @ 400 mls/hr Q2H30M PRN 03/30/19 09:29 03/30/19 21:28 DC Torsemide (Demadex) 5 mg DAILY 03/30/19 13:30 03/31/19 09:08 5 MG Results All relevant outside records, renal labs, imaging studies, telemetry/EKG's were reviewed. HETAL FRIED MD Mar 31, 2019 14:31
[2019-03-31 15:00] VITALS: BP 124/56
--- NOTE | 2019-03-31 16:19 | NUR ---
SW following pt for dc planning. Chart reviewed and pt lives at home with spouse. Pt goes to [facility] on T, TH and Sat. Pt was recently discharged home with self care. Pt now agreeable with [facility] health upon dc. PT recommends 4 WW walker upon dc. Discussed with RN. Will continue to follow.
--- NOTE | 2019-03-31 16:56 | PDOC ---
PROGRESS NOTES Subjective Subjective Patient still with SOB. Troponin slightly elevated. Card eval done demand changes noted. Objective Objective Vital Signs Date Time Temp Pulse Resp B/P (MAP) Pulse Ox O2 Delivery O2 Flow Rate FiO2 03/31/19 15:34 93 Nasal Cannula 4.0 03/31/19 15:00 99.0 98 20 124/56 (78) 99.0 Intake and Output 03/31/19 07:00 Intake Total 400 ml Balance 400 ml Intake Oral 400 ml # Voids 1 Physical Exam Abdomen: Normal bowel sounds Heart: Regular rate Extremities: No edema General: Alert Lungs: Other (wheezes bilate) Assessment Assessment Problems Medical Problems: (1) COPD exacerbation Status: Acute (2) ESRD on dialysis Status: Chronic (3) Sepsis Status: Acute 1. Chronic obstructive pulmonary disease exacerbation. 2. Acute on chronic respiratory failure. 3. End-stage renal disease, on dialysis. Plan Plan of Care Continue Pulm Toilet Dialysis in am Comment Review of Relevant I have reviewed the following items court (where applicable) has been applied. Labs Laboratory Tests Test 03/30/19 05:20 03/30/19 08:30 03/30/19 11:25 White Blood Count 21.2 x10^3/uL (4.0-11.0) Red Blood Count 3.16 x10^6/uL (3.50-5.40) Hemoglobin 11.5 g/dL (12.0-15.5) Hematocrit 35.2 % (36.0-47.0) Mean Corpuscular Volume 112 fL (79-100) Mean Corpuscular Hemoglobin 36 pg (25-35) Mean Corpuscular Hemoglobin Concent 33 g/dL (31-37) Red Cell Distribution Width 17.0 % (11.5-14.5) Platelet Count 278 x10^3/uL (140-400) Neutrophils (%) (Auto) 81 % (31-73) Lymphocytes (%) (Auto) 11 % (24-48) Monocytes (%) (Auto) 8 % (0-9) Eosinophils (%) (Auto) 0 % (0-3) Basophils (%) (Auto) 0 % (0-3) Neutrophils # (Auto) 17.2 x10^3/uL (1.8-7.7) Lymphocytes # (Auto) 2.4 x10^3/uL (1.0-4.8) Monocytes # (Auto) 1.7 x10^3/uL (0.0-1.1) Eosinophils # (Auto) 0.0 x10^3/uL (0.0-0.7) Basophils # (Auto) 0.0 x10^3/uL (0.0-0.2) Prothrombin Time 13.2 SEC (11.7-14.0) Prothromb Time International Ratio 1.0 (0.8-1.1) Activated Partial Thromboplast Time 21 SEC (24-38) Sodium Level 138 mmol/L (136-145) Potassium Level 4.9 mmol/L (3.5-5.1) Chloride Level 99 mmol/L (98-107) Carbon Dioxide Level 25 mmol/L (21-32) Anion Gap 14 (6-14) Blood Urea Nitrogen 95 mg/dL (7-20) Creatinine 8.6 mg/dL (0.6-1.0) Estimated GFR (Cockcroft-Gault) 4.7 BUN/Creatinine Ratio 11 (6-20) Glucose Level 112 mg/dL (70-99) Lactic Acid Level 1.5 mmol/L (0.4-2.0) Calcium Level 8.8 mg/dL (8.5-10.1) Magnesium Level 1.8 mg/dL (1.8-2.4) Total Bilirubin 0.4 mg/dL (0.2-1.0) Aspartate Amino Transf (AST/SGOT) 17 U/L (15-37) Alanine Aminotransferase (ALT/SGPT) 18 U/L (14-59) Alkaline Phosphatase 151 U/L (46-116) Creatine Kinase 151 U/L (26-192) Creatine Kinase MB (Mass) 8.7 ng/mL (0.0-3.6) Creatine Kinase MB Relative Index 5.8 % (0-4) Troponin I Quantitative 0.019 ng/mL (0.000-0.055) 0.077 ng/mL (0.000-0.055) 0.081 ng/mL (0.000-0.055) PQ-[id number]-P-Type Natriuretic Peptide 1876 pg/mL (0-124) Total Protein 6.8 g/dL (6.4-8.2) Albumin 3.6 g/dL (3.4-5.0) Albumin/Globulin Ratio 1.1 (1.0-1.7) Triglycerides Level 91 mg/dL (0-150) Cholesterol Level 89 mg/dL (0-200) LDL Cholesterol, Calculated 30 mg/dL (0-100) VLDL Cholesterol, Calculated 18 mg/dL (0-40) Non-HDL Cholesterol Calculated 48 mg/dL (0-129) HDL Cholesterol 41 mg/dL (40-60) Cholesterol/HDL Ratio 2.2 Microbiology 03/30/19 Blood Culture - Preliminary, Resulted NO GROWTH AFTER 1 DAY Medications Current Medications Albuterol/ Ipratropium (Duoneb) 3 ml 1X ONCE NEB Last administered on 03/30/19at 05:33; Start 03/30/19 at 05:30; Stop 03/30/19 at 05:31; Status DC Albuterol Sulfate (Ventolin Neb Soln) 10 mg 1X ONCE CONT NEB Last administered on 03/30/19at 05:33; Start 03/30/19 at 05:30; Stop 03/30/19 at 05:31; Status DC Albuterol Sulfate (Ventolin Neb Soln) 2.5 mg STK-MED ONCE .ROUTE ; Start 03/30/19 at 05:18; Stop 03/30/19 at 05:18; Status DC Albuterol/ Ipratropium (Duoneb) 3 ml STK-MED ONCE .ROUTE ; Start 03/30/19 at 05:18; Stop 03/30/19 at 05:19; Status DC Sodium Chloride 1,000 ml @ 1,000 mls/hr 1X ONCE IV ; Start 03/30/19 at 05:30; Stop 03/30/19 at 05:28; Status DC Dexamethasone Sodium Phosphate (Decadron) 10 mg 1X ONCE IV Last administered on 03/30/19at 05:37; Start 03/30/19 at 05:30; Stop 03/30/19 at 05:31; Status DC Ondansetron HCl (Zofran) 4 mg PRN Q8HRS PRN IV NAUSEA/VOMITING; Start 03/30/19 at 05:45; Stop 03/31/19 at 05:44; Status DC Albuterol/ Ipratropium (Duoneb) 3 ml Q4HRS PRN NEB WHEEZING Last administered on 03/30/19at 07:23; Start 03/30/19 at 05:45; Stop 03/30/19 at 10:30; Status DC Acetaminophen (Tylenol) 500 mg 1X ONCE PO Last administered on 03/30/19at 06:09; Start 03/30/19 at 06:15; Stop 03/30/19 at 06:16; Status DC Budesonide (Pulmicort) 0.5 mg RTBID NEB Last administered on 03/31/19at 06:29; Start 03/30/19 at 08:00 Piperacillin Sod/ Tazobactam Sod 4.5 gm/Sodium Chloride 100 ml @ 200 mls/hr 1X ONCE IV ; Start 03/30/19 at 06:45; Stop 03/30/19 at 07:14; Status DC Sodium Chloride 1,000 ml @ 1,000 mls/hr Q1H PRN IV hypotension; Start 03/30/19 at 09:29; Stop 03/30/19 at 15:28; Status DC Diphenhydramine HCl (Benadryl) 25 mg 1X PRN PRN IV ITCHING; Start 03/30/19 at 09:30; Stop 03/31/19 at 09:29; Status DC Diphenhydramine HCl (Benadryl) 25 mg 1X PRN PRN IV ITCHING; Start 03/30/19 at 09:30; Stop 03/31/19 at 09:29; Status DC Sodium Chloride 1,000 ml @ 400 mls/hr Q2H30M PRN IV PATENCY; Start 03/30/19 at 09:29; Stop 03/30/19 at 21:28; Status DC Info (PHARMACY MONITORING -- do not chart) 1 each PRN DAILY PRN MC SEE COMMENTS; Start 03/30/19 at 09:30 Lidocaine HCl (Xylocaine-Mpf 1% 2ml Vial) 2 ml STK-MED ONCE .ROUTE ; Start 03/30/19 at 09:41; Stop 03/30/19 at 09:42; Status DC Acetaminophen (Tylenol) 500 mg 1X PRN PRN PO MILD PAIN / TEMP Last administered on 03/30/19at 10:31; Start 03/30/19 at 09:45; Stop 03/31/19 at 09:44; Status DC Methylprednisolone Sodium Succinate (SOLU-Medrol 40MG VIAL) 60 mg Q8HRS IV Last administered on 03/31/19 14:17; Start 03/30/19 at 14:00 Albuterol/ Ipratropium (Duoneb) 3 ml RTQID NEB Last administered on 03/31/19at 15:34; Start 03/30/19 at 12:00 Azithromycin (Zithromax) 250 mg DAILY PO Last administered on 03/31/19 09:08; Start 03/30/19 at 11:00 Ascorbic Acid (Vitamin C) 500 mg DAILY PO Last administered on 03/31/19 09:08; Start 03/30/19 at 13:30 Atorvastatin Calcium (Lipitor) 40 mg HS PO Last administered on 03/30/19 21:57; Start 03/30/19 at 21:00 Pantoprazole Sodium (Protonix) 40 mg DAILYAC PO Last administered on 03/31/19 09:08; Start 03/30/19 at 13:30 Albuterol Sulfate (Ventolin Neb Soln) 2.5 mg PRN Q4HRS PRN NEB SHORTNESS OF BREATH; Start 03/30/19 at 13:15 Calcium Acetate (Phoslo) 2,001 mg TIDWMEALS PO Last administered on 03/31/19 12:00; Start 03/30/19 at 13:30 Non-Formulary Medication (Fluticasone Propionate (Flovent 110MCG Hfa)) 2 puff BID IH ; Start 03/30/19 at 21:00; Status UNV Non-Formulary Medication (Tiotropium Br/ Olodaterol HCl (Stiolto Respimat Inhal [place])) 2.5 mcg DAILY IH ; Start 03/31/19 at 09:00; Status UNV Torsemide (Demadex) 5 mg DAILY PO Last administered on 03/31/19 09:08; Start 03/30/19 at 13:30 Acetaminophen (Tylenol) 650 mg PRN Q6HRS PRN PO PAIN Last administered on 03/31/19 03:01; Start 03/30/19 at 16:30 Aspirin (Ecotrin) 81 mg DAILYWBKFT PO Last administered on 03/31/19 09:08; Start 03/30/19 at 17:00 Lidocaine HCl (Xylocaine-Mpf 1% 2ml Vial) 2 ml STK-MED ONCE .ROUTE ; Start 03/30/19 at 10:00; Stop 03/31/19 at 09:22; Status DC Active Scripts Active Prednisone (Prednisone) 10 Mg Tablet 10 Mg PO UD 10 Days Take 5 tablets by mouth daily for 2 days, then take 4 tablets by mouth daily for 2 days, then take 3 tablets by mouth daily for 2 days, then take 2 tablets by mouth daily for 2 days, then take 1 tablets by mouth daily for 2 days, then stop. Flovent 110MCG Hfa (Fluticasone Propionate) 12 Gm Aer.w.adap 2 Puff IH BID Protonix (Pantoprazole Sodium) 40 Mg Tablet 40 Mg PO DAILYAC Reported Calcium Acetate 667 Mg Tablet 3 Cap PO TIDWMEALS [torsemide] 5 Mg PO DAILY Stiolto Respimat Inhal [place] (Tiotropium Br/Olodaterol HCl) 4 Gm Mist.inhal 2.5 Mcg IH DAILY Atorvastatin Calcium 40 Mg Tablet 40 Mg PO HS Vitamin C (Ascorbic Acid) 500 Mg Tablet 500 Mg PO DAILY Ventolin Hfa Inhaler (Albuterol Sulfate) 18 Gm Hfa.aer.ad 2 Puff INH Q4HRS PRN Vitals/I & O Vital Sign - Last 24 Hours 03/30/19 03/30/19 03/30/19 03/30/19 19:45 19:49 20:10 21:10 Temp 98.3 98.3 Pulse 96 Resp 20 B/P (MAP) 106/73 (84) Pulse Ox 88 95 95 O2 Delivery BiPAP/CPAP Venturi Mask Home CPAP 5L O2 Flow Rate 15.0 10.0 5.0 03/30/19 03/31/19 03/31/19 03/31/19 23:45 03:45 06:30 06:33 Temp 97.7 97.5 97.7 97.5 Pulse 94 94 Resp 20 20 B/P (MAP) 124/52 (76) 131/75 (93) Pulse Ox 91 88 92 92 O2 Delivery BiPAP/CPAP BiPAP/CPAP Nasal Cannula Nasal Cannula O2 Flow Rate 5.0 5.0 03/31/19 03/31/19 03/31/19 03/31/19 07:00 08:00 11:00 11:28 Temp 98.7 99.4 98.7 99.4 Pulse 91 Resp 20 20 B/P (MAP) 147/61 (89) 127/51 (76) Pulse Ox 91 93 93 O2 Delivery Nasal Cannula Room Air Nasal Cannula Nasal Cannula O2 Flow Rate 5.0 5.0 5.0 5.0 03/31/19 03/31/19 15:00 15:34 Temp 99.0 99.0 Pulse 98 Resp 20 B/P (MAP) 124/56 (78) Pulse Ox 93 93 O2 Delivery Room Air Nasal Cannula O2 Flow Rate 4.0 Intake and Output 03/30/19 03/30/19 03/31/19 15:00 23:00 07:00 Intake Total 400 ml Balance 400 ml TORI OVERTON MD Mar 31, 2019 16:56
[2019-03-31 19:22] VITALS: BP 149/70
[2019-03-31] MEDS: ATORVASTATIN CALCIUM 40 MG TABLET. PO SCH (22:49)
[2019-03-31 23:19] VITALS: BP 171/60
[2019-04-01 03:49] VITALS: BP 144/60
[2019-04-01] MEDS: methylPREDNISolone SOD SUCC PF 40 MG/ML VIAL. IV SCH ×3 (04:53→21:14)
[2019-04-01] MEDS: PANTOPRAZOLE 40 MG TABLET.DR. PO SCH (04:53)
[2019-04-01] MEDS: ACETAMINOPHEN 325 MG TABLET. PO PRN (04:53)
[2019-04-01 06:02] LABS: CALCIUM 9.2 mg/dL (8.5-10.1); CREATININE 7.8 mg/dL (0.6-1.0); GFR 5.2; POTASSIUM 5.3 mmol/L (3.5-5.1)
[2019-04-01] MEDS: IPRATRPIUM/ALBUTEROL 0.5/2.5MG 3 ML NEBU. NEB SCH ×5 (06:27→18:44)
[2019-04-01] MEDS: BUDESONIDE 0.5 MG/2 ML NEBU. NEB SCH ×3 (06:27→18:44)
[2019-04-01 06:54] LABS: HEMATOCRIT 29.9 % (36.0-47.0); RED BLOOD COUNT 2.72 x10^6/uL (3.50-5.40); WHITE BLOOD COUNT 12.1 x10^3/uL (4.0-11.0)
[2019-04-01] MEDS ORDERED: IV NORMAL SALINE 1000ML BAG 1,000 ML IV PRN ×2 (07:28)
[2019-04-01] MEDS ORDERED: diphenhydrAMINE 50 MG/ML VIAL IV PRN ×2 (07:30)
[2019-04-01] MEDS ORDERED: ALBUMIN HUMAN 25% 200 ML IV PRN (07:30)
[2019-04-01] MEDS ORDERED: DIALYSIS PATIENT. MC PRN ×2 (07:30)
[2019-04-01] MEDS: CALCIUM ACETATE 667 MG CAPSULE PO SCH ×3 (08:00→17:06)
[2019-04-01] MEDS: TORSEMIDE 20 MG TABLET. PO SCH (09:00)
--- NOTE | 2019-04-01 13:04 | PDOC ---
PROGRESS NOTES Subjective She is back from dialysis, still feels SOA, WBC has improved significantly though Objective Afebrile General: A&O Heart: RRR Lungs: wheezes and rhonchi Abd: soft, non tender, eating Ext: no C/C/E WBC: 12.1 Hgb: 10.0 K+: 5.3 Creat: 7.8 Vital Signs Vital Signs Date Time Temp Pulse Resp B/P (MAP) Pulse Ox O2 Delivery O2 Flow Rate FiO2 04/01/19 11:34 93 Nasal Cannula 3.0 04/01/19 03:49 97.6 79 18 144/60 (88) 97.6 I & O Intake and Output 04/01/19 07:00 Intake Total 1410 ml Balance 1410 ml Intake Oral 1410 ml # Voids 2 Assessment and Plan (1) COPD exacerbation -acute , continue present meds (2) ESRD on dialysis - dialyzed 04/01 (3) Sepsis - WBC elevated but lactic acid normal and blood cultures normal (4) acute on chronic respiratory failure - continue O2 (5) abnormal troponin - demand ischemia per cardiology Mark MOORE MD Apr 01, 2019 13:04
[2019-04-01] MEDS: AZITHROMYCIN 250 MG TABLET. PO SCH (13:09)
[2019-04-01] MEDS: ASCORBIC ACID 500 MG TABLET PO SCH (13:09)
[2019-04-01] MEDS: ASPIRIN ENTERIC COATED 81 MG TABLET.DR. PO SCH (13:09)
--- NOTE | 2019-04-01 14:36 | PDOC ---
SUBJECTIVE ROS feeling better , seen on HD OBJECTIVE Vital Signs Vital Signs Date Time Temp Pulse Resp B/P (MAP) Pulse Ox O2 Delivery O2 Flow Rate FiO2 04/01/19 11:34 93 Nasal Cannula 3.0 04/01/19 03:49 97.6 79 18 144/60 (88) 97.6 I & 0 Intake and Output 04/01/19 07:00 Intake Total 1410 ml Balance 1410 ml Intake Oral 1410 ml # Voids 2 PHYSICAL EXAM Physical Exam GEN: NaD HEEN: O2 by nc NECK: Supple CVS: RRR RESP: Exp wheezes + GI: Non Tender : No Fermin Neuro Grossly normal Ext No edema DIAGNOSIS/ASSESSMENT Assessment & Plan ESRD - On HD TTS Seen on HD , tolerating well. continue as ordered , DW DEn HTN - On antihypertensives including diuretics per home list Anemia- No indication for DARRICK Recurrent chronic respiratory failure secondary to acute exacerbation of chronic obstructive pulmonary disease with diffuse bronchospasm. Tobacco use- continues to smoke cigarettes COMMENT/RELEVANT DATA Meds Current Medications Medications (Trade) Dose Ordered Sig/Aki Start Time Stop Time Status Last Admin Dose Admin Acetaminophen (Tylenol) 650 mg PRN Q6HRS PRN 03/30/19 16:30 04/01/19 04:53 650 MG Albumin Human 200 ml @ 200 mls/hr 1X PRN PRN 04/01/19 07:30 04/01/19 13:29 DC Albuterol Sulfate (Ventolin Neb Soln) 2.5 mg PRN Q4HRS PRN 03/30/19 13:15 Albuterol/ Ipratropium (Duoneb) 3 ml RTQID 03/30/19 12:00 04/01/19 11:29 3 ML Ascorbic Acid (Vitamin C) 500 mg DAILY 03/30/19 13:30 04/01/19 13:10 500 MG Aspirin (Ecotrin) 81 mg DAILYWBKFT 03/30/19 17:00 04/01/19 13:10 81 MG Atorvastatin Calcium (Lipitor) 40 mg HS 03/30/19 21:00 03/31/19 22:50 40 MG Azithromycin (Zithromax) 250 mg DAILY 03/30/19 11:00 04/01/19 13:10 250 MG Budesonide (Pulmicort) 0.5 mg RTBID 03/30/19 08:00 04/01/19 11:29 0.5 MG Calcium Acetate (Phoslo) 2,001 mg TIDWMEALS 03/30/19 13:30 04/01/19 13:10 2,001 MG Dexamethasone Sodium Phosphate (Decadron) 10 mg 1X ONCE 03/30/19 05:30 03/30/19 05:31 DC 03/30/19 05:37 10 MG Diphenhydramine HCl (Benadryl) 25 mg 1X PRN PRN 04/01/19 07:30 04/02/19 07:29 Info (PHARMACY MONITORING -- do not chart) 1 each PRN DAILY PRN 04/01/19 07:30 Lidocaine HCl (Xylocaine-Mpf 1% 2ml Vial) 2 ml STK-MED ONCE 03/30/19 10:00 03/31/19 09:22 DC Methylprednisolone Sodium Succinate (SOLU-Medrol 40MG VIAL) 60 mg Q8HRS 03/30/19 14:00 04/01/19 04:53 60 MG Non-Formulary Medication (Fluticasone Propionate (Flovent 110MCG Hfa)) 2 puff BID 03/30/19 21:00 UNV Non-Formulary Medication (Tiotropium Br/ Olodaterol HCl (Stiolto Respimat Inhal [place])) 2.5 mcg DAILY 03/31/19 09:00 UNV Ondansetron HCl (Zofran) 4 mg PRN Q8HRS PRN 03/30/19 05:45 03/31/19 05:44 DC Pantoprazole Sodium (Protonix) 40 mg DAILYAC 03/30/19 13:30 04/01/19 04:53 40 MG Piperacillin Sod/ Tazobactam Sod 4.5 gm/Sodium Chloride 100 ml @ 200 mls/hr 1X ONCE 03/30/19 06:45 03/30/19 07:14 DC Sodium Chloride 1,000 ml @ 400 mls/hr Q2H30M PRN 04/01/19 07:28 04/01/19 19:27 Torsemide (Demadex) 5 mg DAILY 03/30/19 13:30 03/31/19 09:08 5 MG Lab Laboratory Tests Test 04/01/19 05:20 White Blood Count 12.1 x10^3/uL (4.0-11.0) Red Blood Count 2.72 x10^6/uL (3.50-5.40) Hemoglobin 10.0 g/dL (12.0-15.5) Hematocrit 29.9 % (36.0-47.0) Mean Corpuscular Volume 110 fL (79-100) Mean Corpuscular Hemoglobin 37 pg (25-35) Mean Corpuscular Hemoglobin Concent 34 g/dL (31-37) Red Cell Distribution Width 17.0 % (11.5-14.5) Platelet Count 171 x10^3/uL (140-400) Sodium Level 134 mmol/L (136-145) Potassium Level 5.3 mmol/L (3.5-5.1) Chloride Level 94 mmol/L (98-107) Carbon Dioxide Level 25 mmol/L (21-32) Anion Gap 15 (6-14) Blood Urea Nitrogen 100 mg/dL (7-20) Creatinine 7.8 mg/dL (0.6-1.0) Estimated GFR (Cockcroft-Gault) 5.2 Glucose Level 163 mg/dL (70-99) Calcium Level 9.2 mg/dL (8.5-10.1) Results All relevant outside records, renal labs, imaging studies, telemetry/EKG's were reviewed. HETAL FRIED MD Apr 01, 2019 14:36
[2019-04-01 15:00] VITALS: BP 142/57
--- NOTE | 2019-04-01 15:17 | NUR ---
The patient underwent hemodialysis this morning, came back to the unit at 1330. She's awake, alert, oriented x4, VS stable.
--- NOTE | 2019-04-01 17:41 | PDOC ---
PULMONARY PROGRESS NOTES Subjective Pt. is up to chair this am, reports improvement with her breathing. she is currently on 5 liters N/C. She wants to switch back to Symbicort. Denies increased SOA or increased cough. Vitals Vital Signs Date Time Temp Pulse Resp B/P (MAP) Pulse Ox O2 Delivery O2 Flow Rate FiO2 04/01/19 16:34 Nasal Cannula 3.0 04/01/19 15:00 98.2 108 20 142/57 (85) 90 98.2 ROS: No Nausea, No Chest Pain, No Increase Cough General: Alert, Oriented X4, No acute distress HEENT: Other Lungs: Clear, Other (diminished breath sounds) Cardiovascular: S1, S2 Abdomen: Soft, Non-tender Neuro Exam: Alert, Oriented, Normal Speech Extremities: No Edema Skin: Warm, Dry Labs Laboratory Tests Test 04/01/19 05:20 White Blood Count 12.1 x10^3/uL (4.0-11.0) Red Blood Count 2.72 x10^6/uL (3.50-5.40) Hemoglobin 10.0 g/dL (12.0-15.5) Hematocrit 29.9 % (36.0-47.0) Mean Corpuscular Volume 110 fL (79-100) Mean Corpuscular Hemoglobin 37 pg (25-35) Mean Corpuscular Hemoglobin Concent 34 g/dL (31-37) Red Cell Distribution Width 17.0 % (11.5-14.5) Platelet Count 171 x10^3/uL (140-400) Sodium Level 134 mmol/L (136-145) Potassium Level 5.3 mmol/L (3.5-5.1) Chloride Level 94 mmol/L (98-107) Carbon Dioxide Level 25 mmol/L (21-32) Anion Gap 15 (6-14) Blood Urea Nitrogen 100 mg/dL (7-20) Creatinine 7.8 mg/dL (0.6-1.0) Estimated GFR (Cockcroft-Gault) 5.2 Glucose Level 163 mg/dL (70-99) Calcium Level 9.2 mg/dL (8.5-10.1) Laboratory Tests Test 04/01/19 05:20 White Blood Count 12.1 x10^3/uL (4.0-11.0) Red Blood Count 2.72 x10^6/uL (3.50-5.40) Hemoglobin 10.0 g/dL (12.0-15.5) Hematocrit 29.9 % (36.0-47.0) Mean Corpuscular Volume 110 fL (79-100) Mean Corpuscular Hemoglobin 37 pg (25-35) Mean Corpuscular Hemoglobin Concent 34 g/dL (31-37) Red Cell Distribution Width 17.0 % (11.5-14.5) Platelet Count 171 x10^3/uL (140-400) Sodium Level 134 mmol/L (136-145) Potassium Level 5.3 mmol/L (3.5-5.1) Chloride Level 94 mmol/L (98-107) Carbon Dioxide Level 25 mmol/L (21-32) Anion Gap 15 (6-14) Blood Urea Nitrogen 100 mg/dL (7-20) Creatinine 7.8 mg/dL (0.6-1.0) Estimated GFR (Cockcroft-Gault) 5.2 Glucose Level 163 mg/dL (70-99) Calcium Level 9.2 mg/dL (8.5-10.1) Medications Active Scripts Medications Dose Route/Sig Max Daily Dose Days Date Category Dose Instructions Prednisone (Prednisone) 10 Mg Tablet 10 Mg PO UD 10 03/29/19 Rx Take 5 tablets by mouth daily for 2 days, then take 4 tablets by mouth daily for 2 days, then take 3 tablets by mouth daily for 2 days, then take 2 tablets by mouth daily for 2 days, then take 1 tablets by mouth daily for 2 days, then stop. Calcium Acetate 667 Mg Tablet 3 Cap PO TIDWMEALS 03/13/19 Reported [torsemide] 5 Mg PO DAILY 12/21/17 Reported Stiolto Respimat Inhal [place] (Tiotropium Br/Olodaterol HCl) 4 Gm Mist.inhal 2.5 Mcg IH DAILY 12/21/17 Reported Flovent 110MCG Hfa (Fluticasone Propionate) 12 Gm Aer.w.adap 2 Puff IH BID 12/29/16 Rx Protonix (Pantoprazole Sodium) 40 Mg Tablet 40 Mg PO DAILYAC 04/11/15 Rx Atorvastatin Calcium 40 Mg Tablet 40 Mg PO HS 04/07/15 Reported Vitamin C (Ascorbic Acid) 500 Mg Tablet 500 Mg PO DAILY 03/30/15 Reported Ventolin Hfa Inhaler (Albuterol Sulfate) 18 Gm Hfa.aer.ad 2 Puff INH Q4HRS PRN 03/30/15 Reported Impression . 1. Recurrent chronic respiratory failure secondary to acute exacerbation of chronic obstructive pulmonary disease with diffuse bronchospasm. 2. Recent mycoplasma pneumonia. 3. End-stage renal disease, on hemodialysis. 4. Abnormal chest x-ray with faint interstitial infiltrates related to mycoplasma pneumonia. Plan . 1. Continue present oxygen 2. Increase DuoNebs to every 4 hours. Add Pulmicort and continue with steroids, will plan to taper slowly 3. Cont. Zithromax for mycoplasma pneumonia. 4. Continue hemodialysis with ultrafiltration, although clinically not in heart failure per nephrology recs 5. We will follow along with you. 6. ok to switch back to Symbicort in outpatient setting in combination with anticholinergic, Pt. reports better control of COPD on Symbicort 6. Discussed with ELVIA HAWLEY,MIROSLAVA Melo MD Apr 01, 2019 17:41
[2019-04-01 19:46] VITALS: BP 136/68
[2019-04-01] MEDS: ATORVASTATIN CALCIUM 40 MG TABLET. PO SCH (21:14)
[2019-04-01 23:44] VITALS: BP 116/56
[2019-04-02] MEDS: ALBUTEROL SULFATE 2.5 MG/3 ML NEBU. NEB PRN ×2 (02:09→06:17)
[2019-04-02 03:44] VITALS: BP 124/56
[2019-04-02] MEDS: IPRATRPIUM/ALBUTEROL 0.5/2.5MG 3 ML NEBU. NEB SCH ×2 (06:07→11:16)
[2019-04-02] MEDS: methylPREDNISolone SOD SUCC PF 40 MG/ML VIAL. IV SCH ×2 (06:55→14:23)
[2019-04-02 07:00] VITALS: BP 125/66
[2019-04-02] MEDS ORDERED: BUDESONIDE 0.5 MG/2 ML NEBU. NEB ONE (08:00)
[2019-04-02] MEDS: ASCORBIC ACID 500 MG TABLET PO SCH (08:11)
[2019-04-02] MEDS: CALCIUM ACETATE 667 MG CAPSULE PO SCH ×2 (08:11→12:45)
[2019-04-02] MEDS: ASPIRIN ENTERIC COATED 81 MG TABLET.DR. PO SCH (08:11)
[2019-04-02] MEDS: AZITHROMYCIN 250 MG TABLET. PO SCH (08:11)
[2019-04-02] MEDS: PANTOPRAZOLE 40 MG TABLET.DR. PO SCH (08:11)
[2019-04-02] MEDS: TORSEMIDE 20 MG TABLET. PO SCH (08:12)
--- NOTE | 2019-04-02 09:27 | PDOC ---
PROGRESS NOTES Subjective She slept better, walking minimal amounts, she has Flovent and Stiolto and Ventolin inhalers at home, she has a prednisone taper that she filled but hand't started HEALTH INFORMATION TECH, she has O2, she needed Bipap overnight Objective Afebrile General: Up in chair, mild dyspnea with conversation Heart: RRR Lungs: CTA, diminished but no wheezes heard Abd: soft and non tender Ext: no C/C/E Vital Signs Vital Signs Date Time Temp Pulse Resp B/P (MAP) Pulse Ox O2 Delivery O2 Flow Rate FiO2 04/02/19 07:00 98.3 58 16 125/66 (85) 90 Room Air 98.3 04/02/19 06:07 3.0 I & O Intake and Output 04/02/19 07:00 Intake Total 300 ml Output Total 200 ml Balance 100 ml Intake Oral 300 ml Output Urine Total 200 ml # Voids 4 # Bowel Movements 1 Assessment and Plan atypical pneumonitis - continue antibiotics - still dyspneic with activity and mildly dyspneic with conversation acute on chronic resp failure - continue O2 COPD exac - continue nebulized steroids and neb tx abnormal troponin - cardiology consulted and thought to be due to demand ischemia ESRD - next scheduled dialysis Wednesday, no evidence of significant heart failure per CXR, lab Mark MOORE MD Apr 02, 2019 09:27
[2019-04-02 11:00] VITALS: BP 130/70
--- NOTE | 2019-04-02 11:15 | PDOC ---
PULMONARY PROGRESS NOTES Subjective Pt. is walked with physical therapist, reports improvement with her breathing. she is currently on 3 liters N/C. she has O2 at home and chronically is on 2 - 3 L. Feeling better and wants to go home.. Denies increased SOA or increased cough. Vitals Vital Signs Date Time Temp Pulse Resp B/P (MAP) Pulse Ox O2 Delivery O2 Flow Rate FiO2 04/02/19 08:00 Nasal Cannula 3.0 04/02/19 07:00 98.3 58 16 125/66 (85) 90 98.3 ROS: No Nausea, No Chest Pain, No Increase Cough General: Alert, Oriented X4, No acute distress HEENT: Other Lungs: Clear, Other (diminished breath sounds) Cardiovascular: S1, S2 Abdomen: Soft, Non-tender Neuro Exam: Alert, Oriented, Normal Speech Extremities: No Edema Skin: Warm, Dry Labs Laboratory Tests Test 04/01/19 05:20 White Blood Count 12.1 x10^3/uL (4.0-11.0) Red Blood Count 2.72 x10^6/uL (3.50-5.40) Hemoglobin 10.0 g/dL (12.0-15.5) Hematocrit 29.9 % (36.0-47.0) Mean Corpuscular Volume 110 fL (79-100) Mean Corpuscular Hemoglobin 37 pg (25-35) Mean Corpuscular Hemoglobin Concent 34 g/dL (31-37) Red Cell Distribution Width 17.0 % (11.5-14.5) Platelet Count 171 x10^3/uL (140-400) Sodium Level 134 mmol/L (136-145) Potassium Level 5.3 mmol/L (3.5-5.1) Chloride Level 94 mmol/L (98-107) Carbon Dioxide Level 25 mmol/L (21-32) Anion Gap 15 (6-14) Blood Urea Nitrogen 100 mg/dL (7-20) Creatinine 7.8 mg/dL (0.6-1.0) Estimated GFR (Cockcroft-Gault) 5.2 Glucose Level 163 mg/dL (70-99) Calcium Level 9.2 mg/dL (8.5-10.1) Medications Active Scripts Medications Dose Route/Sig Max Daily Dose Days Date Category Dose Instructions Prednisone (Prednisone) 10 Mg Tablet 10 Mg PO UD 10 03/29/19 Rx Take 5 tablets by mouth daily for 2 days, then take 4 tablets by mouth daily for 2 days, then take 3 tablets by mouth daily for 2 days, then take 2 tablets by mouth daily for 2 days, then take 1 tablets by mouth daily for 2 days, then stop. Calcium Acetate 667 Mg Tablet 3 Cap PO TIDWMEALS 03/13/19 Reported [torsemide] 5 Mg PO DAILY 12/21/17 Reported Stiolto Respimat Inhal [place] (Tiotropium Br/Olodaterol HCl) 4 Gm Mist.inhal 2.5 Mcg IH DAILY 12/21/17 Reported Flovent 110MCG Hfa (Fluticasone Propionate) 12 Gm Aer.w.adap 2 Puff IH BID 12/29/16 Rx Protonix (Pantoprazole Sodium) 40 Mg Tablet 40 Mg PO DAILYAC 04/11/15 Rx Atorvastatin Calcium 40 Mg Tablet 40 Mg PO HS 04/07/15 Reported Vitamin C (Ascorbic Acid) 500 Mg Tablet 500 Mg PO DAILY 03/30/15 Reported Ventolin Hfa Inhaler (Albuterol Sulfate) 18 Gm Hfa.aer.ad 2 Puff INH Q4HRS PRN 03/30/15 Reported Impression . 1. Recurrent chronic respiratory failure secondary to acute exacerbation of chronic obstructive pulmonary disease with diffuse bronchospasm. 2. Recent mycoplasma pneumonia. 3. End-stage renal disease, on hemodialysis. 4. Abnormal chest x-ray with faint interstitial infiltrates related to mycoplasma pneumonia. Plan . 1. OK to discharge from my perspective. Continue prednisone for ~ 5 days. she has that at home. Continue oxygen at home 2. Cont. Zithromax for mycoplasma pneumonia. 3. Continue hemodialysis with ultrafiltration, although clinically not in heart failure per nephrology recs 4.. ok to switch back to Symbicort in outpatient setting in combination with anticholinergic, Pt. reports better control of COPD on Symbicort Discussed with MIROSLAVA SMITH MD Apr 02, 2019 11:15
[2019-04-02 15:00] VITALS: BP 128/68
[2019-04-02] MEDS ORDERED: AZIT250T6 PO (15:10)
--- NOTE | 2019-04-02 17:00 | NUR ---
Paged Dr. Pathak at 1500 regarding patient wanting to go home. Discharge orders received, home meds reviewed.
--- NOTE | 2019-04-02 17:08 | NUR ---
Discharge Note: LUCÍA SEVILLA [address] Discharge instructions and discharge home medications reviewed with patient and a copy given. All questions have been answered and understanding verbalized. The following instructions and handouts were given: Azithromycin 250 mg a day for 5 days. Take prednisone as directed. Hemodialysis as scheduled, continue home O2 and CPAP. Prescription called to [facility] at 1700. Follow up with Dr. Luke in a week. Handouts regarding pneumonia and COPD. Watcg out for worsening of symptoms. Discontinued lines and drains: peripheral IV intact, patient tolerated removal, no complications noted Patient discharged to home via wheelchair accompanied by the patient's spouse. She left the unit at 1650.
--- NOTE | 2019-04-02 19:26 | PDOC3 ---
Discharge Summary [facility] Date of Admission: Mar 30, 2019 Discharge Date: Apr 02, 2019 Admitting Diagnosis acute hypoxic respiratory failure Final Diagnosis acute on chronic hypoxic resp failure atypical pneumonitis (Pneumocystis) acute COPD exac abnormal troponin ESRD CONSULTS pulm Procedures hemodialysis Brief Hospital Course Ms. Delgado is a 64 old who presented with: atypical pneumonitis causinng acute on chronic resp failure from an acute COPD exac which also caused an abnormal troponin thought to be due to demand ischemia. She also has ESRD but was not felt to be in acute heart failure. She received aggressive pulm toilette, O2 , neb treatments, steroids and was dialyzed routinely, she improved and if she follows her discharge instructions and does not smoke too much she should continue to improve Patient History: Patient reports no known family medical history. Disposition home CONDITION AT DISCHARGE: Improved Scheduled Ascorbic Acid (Vitamin C), 500 MG PO DAILY, (Reported) Atorvastatin Calcium (Atorvastatin Calcium), 40 MG PO HS, (Reported) Azithromycin (Azithromycin Tablet), 250 MG PO DAILY, (Reported) Calcium Acetate (Calcium Acetate), 3 CAP PO TIDWMEALS, (Reported) Fluticasone Propionate (Flovent 110MCG Hfa), 2 PUFF IH BID Pantoprazole Sodium (Protonix ), 40 MG PO DAILYAC Prednisone (Prednisone ), 10 MG PO UD Tiotropium Br/Olodaterol HCl (Stiolto Respimat Inhal [place]), 2.5 MCG IH DAILY, (Reported) [torsemide], 5 MG PO DAILY, (Reported) Scheduled PRN Albuterol Sulfate (Ventolin Hfa Inhaler), 2 PUFF INH Q4HRS PRN for SHORTNESS OF BREATH, (Reported) Discontinued Medications Azithromycin (Zithromax Packet), 1 PACKET PO ONCE Levofloxacin (Levaquin), 1 TAB PO DAILY Follow Up 1-2 weeks Mark MOORE MD Apr 02, 2019 19:26
[2019-04-02] MEDS ORDERED: LACTOBACILLUS RHAMNOSUS GG 1 CAPSULE. PO SCH (21:00)
--- NOTE | 2019-04-03 13:36 | NUR ---
Post dc note: NELLY faxed clinicals to [facility] and informed [facility] at [facility] pt was discharged yesterday. Pt was dc'd with self care. NELLY spoke with Karlene sorensen [facility] and she will contact pt's PCP to get home health orders.
== END 2019-04-02 16:28 | disposition home health service (06) | DRG 871 ==
LOC: ER 05:15 → 6 SOUTH 05:30
PROVIDERS: ADMIT Family Medicine; ATTEND Family Medicine
PROC: 5A09357 Assistance with Respiratory Ventilation, Less than 24 Consecutive Hours, Continuous Positive Airway Pressure (ICD-10-PCS; principal; 2019-03-30)
PROC: 5A1D70Z Performance of Urinary Filtration, Intermittent, Less than 6 Hours Per Day (ICD-10-PCS; 2019-03-30)
PROC: 5A09357 Assistance with Respiratory Ventilation, Less than 24 Consecutive Hours, Continuous Positive Airway Pressure (ICD-10-PCS; 2019-03-31)
PROC: 5A09357 Assistance with Respiratory Ventilation, Less than 24 Consecutive Hours, Continuous Positive Airway Pressure (ICD-10-PCS; 2019-04-01)
PROC: 5A1D70Z Performance of Urinary Filtration, Intermittent, Less than 6 Hours Per Day (ICD-10-PCS; 2019-04-01)
PROC: 5A09357 Assistance with Respiratory Ventilation, Less than 24 Consecutive Hours, Continuous Positive Airway Pressure (ICD-10-PCS; 2019-04-02)
DX: A41.9 Sepsis, unspecified organism (principal); N18.6 End stage renal disease; J96.21 Acute and chronic respiratory failure with hypoxia; J15.7 Pneumonia due to Mycoplasma pneumoniae; I12.0 Hypertensive chronic kidney disease with stage 5 chronic kidney disease or end stage renal disease; J44.1 Chronic obstructive pulmonary disease with (acute) exacerbation; J44.0 Chronic obstructive pulmonary disease with (acute) lower respiratory infection; I24.8 Other forms of acute ischemic heart disease; E66.01 Morbid (severe) obesity due to excess calories; G47.33 Obstructive sleep apnea (adult) (pediatric); E78.5 Hyperlipidemia, unspecified; D64.9 Anemia, unspecified; E78.00 Pure hypercholesterolemia, unspecified; F17.210 Nicotine dependence, cigarettes, uncomplicated; Z99.2 Dependence on renal dialysis; Z99.81 Dependence on supplemental oxygen; Z68.39 Body mass index [BMI] 39.0-39.9, adult; Z82.49 Family history of ischemic heart disease and other diseases of the circulatory system
CPT/HCPCS: 36415; 71045; 80048; 80053; 80061; 82553; 83605; 83735; 83880; 84484; 85025; 85027; 85610; 85730; 87040; 93005; 93306; 94640; 94644; 94760; 96374; J1100; J2920; J7613; J7620; J7626; Q0144; 97110; 97116; 99291-25; G0378

== ENCOUNTER 2019-04-18 09:38 | Emergency (ER) | payer MEDICARE ==
[~2019-04-18] VITALS: Ht 154.9 cm; Wt 101.6 kg
[~2019-04-18 09:38] MED LIST changes: +AZIT250T6 PO
[2019-04-18] MEDS ORDERED: IPRATRPIUM/ALBUTEROL 0.5/2.5MG 3 ML NEBU. NEB ONE (10:00)
[2019-04-18] MEDS ORDERED: methylPREDNISolone SOD SUCC PF 125 MG/2 ML VIAL. IV ONE (10:00)
[2019-04-18 10:21] LABS: BASO % 1 % (0-3); EOS # 0.1 x10^3/uL (0.0-0.7); EOS % 2 % (0-3); HEMATOCRIT 27.6 % (36.0-47.0); HEMOGLOBIN 9.1 g/dL (12.0-15.5); LYMPH # 0.8 x10^3/uL (1.0-4.8); LYMPH % 16 % (24-48); MEAN CORPUSCULAR HEMOGLOBIN 37 pg (25-35); MEAN CORPUSCULAR HGB CONC 33 g/dL (31-37); MEAN CORPUSCULAR VOLUME 111 fL (79-100); MONO # 0.3 x10^3/uL (0.0-1.1); MONO % 5 % (0-9); NEUT # 3.9 x10^3/uL (1.8-7.7); NEUT % 76 % (31-73); PLATELET COUNT 163 x10^3/uL (140-400); RED BLOOD COUNT 2.48 x10^6/uL (3.50-5.40); RED CELL DISTRIBUTION WIDTH 18.5 % (11.5-14.5); WHITE BLOOD COUNT 5.1 x10^3/uL (4.0-11.0)
[2019-04-18 10:22] LABS: BASE EXCESS ABG 6 mmol/L (-3-3); HCO3 ABG 30 mmol/L (21-28); PCO2 ABG 38 mmHg (35-46); PO2 ABG 57 mmHg (65-108); SAT O2 ABG 91 % (92-99)
[2019-04-18 10:24] LABS: FIO2 ABG 28
[2019-04-18 10:26] LABS: CALCIUM 9.5 mg/dL (8.5-10.1); CREATININE 3.4 mg/dL (0.6-1.0); GFR 13.6
[2019-04-18 10:39] LABS: ALBUMIN 3.3 g/dL (3.4-5.0); ALBUMIN/GLOBULIN RATIO 0.8 (1.0-1.7); TOTAL BILIRUBIN 0.5 mg/dL (0.2-1.0); TOTAL PROTEIN 7.4 g/dL (6.4-8.2)
--- NOTE | 2019-04-18 10:52 | RAD ---
VENOUS LOWER EXTREMITY LEFT 04/18/2019 9:55 AM Clinical Information: Left leg pain and edema. Comparison: None. Technique: Multiple grayscale, color Doppler, and spectral Doppler sonographic images of the lower extremity venous structures were obtained. Findings: The left common femoral, femoral, and popliteal veins exhibit normal compression, respiratory phasicity, and augmentation. No intraluminal thrombi are identified. Color Doppler flow is demonstrated in the left posterior tibial veins. Greater saphenous veins are patent at the saphenofemoral junction. There is a popliteal cyst measuring 4.8 x 1.1 x 2.7 cm. Impression: 1. No evidence of deep venous thrombosis. 2. Popliteal cyst measures 4.8 x 1.1 x 2.7 cm. Electronically signed by: Julianne Malin MD (04/18/2019 10:50 AM) [facility]
--- NOTE | 2019-04-18 10:52 | RAD ---
PORTABLE CHEST 1V 04/18/2019 10:09 AM INDICATION: Hypoxia COMPARISON: 03/30/2019 TECHNIQUE: Portable frontal view of the chest is provided. FINDINGS: The cardiomediastinal silhouette is similar in appearance. Lungs are clear. Minor atherosclerotic plaque noted involving the thoracic aorta. There are no significant pleural effusions. There is no pulmonary vascular congestion. No pneumothorax. IMPRESSION: There is no acute cardiopulmonary process. Electronically signed by: Julianne Malin MD (04/18/2019 10:49 AM) [facility]
--- NOTE | 2019-04-18 10:54 | EKG ---
[facility] [address] [place] [address] Test Date: 2019-04-18 Test Time: 10:18:02 Pat Name: LUCÍA SEVILLA Department: Room: Gender: F [employer]: : [id number] Requested By: ANABEL MCKINNON Order Number: [id number] Reading MD: Measurements Intervals [place] Rate: 97 P: 56 MN: 140 QRS: 22 QRSD: 68 T: 31 QT: 312 QTc: 400 Interpretive Statements SINUS RHYTHM NO SPECIFIC ECG ABNORMALITIES RI6.01 No previous ECG available for comparison
[2019-04-18] MEDS ORDERED: cefTRIAXone IV Push 1 GM VIAL. IVP ONE (11:15)
[2019-04-18] MEDS ORDERED: CEPH-264 PO (11:35)
--- NOTE | 2019-04-18 11:37 | PHYS DOC ---
Past Medical History Past Medical History: Asthma, COPD, High Cholesterol, Hypertension, Renal Failure Past Surgical History: , Other Additional Past Surgical Histo: cataract; L upper arm fistula Alcohol Use: None Drug Use: None Adult General Chief Complaint Chief Complaint: LOWER EXTREMITY SWELLING HPI HPI Patient is a 64 year old female who presents with complaining of left leg pain and swelling. Patient has history of chronic renal failure on dialysis and complaining of gradual onset of left leg pain and edema for the last 4 days that getting worse today and nurse practitioner at dialysis center told her to come to the emergency room. Patient denies new shortness of breath, fever and chills, chest pain, fever and chills. Patient has history of COPD and currently is not vomiting today and states she has CPAP at home and home oxygen use when necessary. Patient states her O2 sat is usually about 88%. Patient came without oxygen to emergency room and had O2 sat of 85% at room air without respiratory distress. Review of Systems Review of Systems Constitutional: Denies fever or chills [] Eyes: Denies change in visual acuity, redness, or eye pain [] HENT: Denies nasal congestion or sore throat [] Respiratory: Denies cough or shortness of breath [] Cardiovascular: No additional information not addressed in HPI [] GI: Denies abdominal pain, nausea, vomiting, bloody stools or diarrhea [] : Denies dysuria or hematuria [] Musculoskeletal: Denies back pain, reports joint pain [] Integument: Denies rash or skin lesions [] Neurologic: Denies headache, focal weakness or sensory changes [] Endocrine: Denies polyuria or polydipsia [] All other systems were reviewed and found to be within normal limits, except as documented in this note. Current Medications Current Medications Current Medications Medications (Trade) Dose Ordered Sig/Aki Start Time Stop Time Status Last Admin Dose Admin Albuterol/ Ipratropium (Duoneb) 3 ml 1X ONCE 04/18/19 10:00 04/18/19 10:02 DC 04/18/19 10:06 3 ML Ceftriaxone Sodium (Rocephin) 1 gm 1X ONCE 04/18/19 11:15 04/18/19 11:16 DC 04/18/19 11:28 1 GM Methylprednisolone Sodium Succinate (SOLU-Medrol 125MG VIAL) 125 mg 1X ONCE 04/18/19 10:00 04/18/19 10:02 DC 04/18/19 10:09 125 MG Allergies Allergies Allergies Coded Allergies Type Severity Reaction Last Updated Verified No Known Drug Allergies 07/19/18 No Physical Exam Physical Exam Constitutional: Well developed, well nourished, mild distress, non-toxic appearance, morbidly obese. [] HENT: Normocephalic, atraumatic. Eyes: PERRLA, EOMI, conjunctiva normal, no discharge. [] Neck: Normal range of motion, no tenderness, supple, no stridor. [] Cardiovascular:Heart rate regular rhythm, no murmur [] Lungs & Thorax: Decrease of air movement bilaterally without wheezing or rhonchi Abdomen: Bowel sounds normal, soft, no tenderness, no masses, no pulsatile masses. [] Skin: Warm, dry, no erythema, no rash. [] Back: No tenderness, no CVA tenderness. [] Extremities: Lower extremity. 1+ edema and wanted someone tenderness without neurovascular deficit[] Neurologic: Alert and oriented X 3, no focal deficits noted. [] Psychologic: Affect normal, judgement normal, mood normal. [] Current Patient Data Vital Signs Vital Signs Date Time Temp Pulse Resp B/P (MAP) Pulse Ox O2 Delivery O2 Flow Rate FiO2 04/18/19 11:45 100 18 144/62 (89) 92 Nasal Cannula 2.0 04/18/19 09:40 97.4 97.4 Lab Values Laboratory Tests Test 04/18/19 10:04 04/18/19 10:10 White Blood Count 5.1 x10^3/uL (4.0-11.0) Red Blood Count 2.48 x10^6/uL (3.50-5.40) L Hemoglobin 9.1 g/dL (12.0-15.5) L Hematocrit 27.6 % (36.0-47.0) L Mean Corpuscular Volume 111 fL (79-100) H Mean Corpuscular Hemoglobin 37 pg (25-35) H Mean Corpuscular Hemoglobin Concent 33 g/dL (31-37) Red Cell Distribution Width 18.5 % (11.5-14.5) H Platelet Count 163 x10^3/uL (140-400) Neutrophils (%) (Auto) 76 % (31-73) H Lymphocytes (%) (Auto) 16 % (24-48) L Monocytes (%) (Auto) 5 % (0-9) Eosinophils (%) (Auto) 2 % (0-3) Basophils (%) (Auto) 1 % (0-3) Neutrophils # (Auto) 3.9 x10^3/uL (1.8-7.7) Lymphocytes # (Auto) 0.8 x10^3/uL (1.0-4.8) L Monocytes # (Auto) 0.3 x10^3/uL (0.0-1.1) Eosinophils # (Auto) 0.1 x10^3/uL (0.0-0.7) Basophils # (Auto) 0.0 x10^3/uL (0.0-0.2) Platelet Estimate Adequate (ADEQUATE) Large Platelets Few Anisocytosis Mod Macrocytosis Mod D-Dimer (Jessica) 0.89 ug/mlFEU (0.00-0.50) H Sodium Level 144 mmol/L (136-145) Potassium Level 4.0 mmol/L (3.5-5.1) Chloride Level 102 mmol/L (98-107) Carbon Dioxide Level 32 mmol/L (21-32) Anion Gap 10 (6-14) Blood Urea Nitrogen 15 mg/dL (7-20) Creatinine 3.4 mg/dL (0.6-1.0) H Estimated GFR (Cockcroft-Gault) 13.6 BUN/Creatinine Ratio 4 (6-20) L Glucose Level 82 mg/dL (70-99) Lactic Acid Level 1.2 mmol/L (0.4-2.0) Calcium Level 9.5 mg/dL (8.5-10.1) Total Bilirubin 0.5 mg/dL (0.2-1.0) Aspartate Amino Transferase (AST) 23 U/L (15-37) Alanine Aminotransferase (ALT) 23 U/L (14-59) Alkaline Phosphatase 144 U/L (46-116) H Creatine Kinase 92 U/L (26-192) Troponin I Quantitative < 0.017 ng/mL (0.000-0.055) WM-Ihe-L-Type Natriuretic Peptide 1570 pg/mL (0-124) H Total Protein 7.4 g/dL (6.4-8.2) Albumin 3.3 g/dL (3.4-5.0) L Albumin/Globulin Ratio 0.8 (1.0-1.7) L O2 Saturation 91 % (92-99) L Arterial Blood pH 7.51 (7.35-7.45) H Arterial Blood pCO2 at Patient Temp 38 mmHg (35-46) Arterial Blood pO2 at Patient Temp 57 mmHg (65-108) L Arterial Blood HCO3 30 mmol/L (21-28) H Arterial Blood Base Excess 6 mmol/L (-3-3) H FiO2 28 Laboratory Tests 04/18/19 10:04 Laboratory Tests 04/18/19 10:04 EKG EKG EKG interpreted by me. EKG at 1018 showed normal sinus rhythm at rate of [address] and T-wave abnormalities. Radiology/Procedures Radiology/Procedures [][address] [address] IMAGING REPORT Signed PATIENT: LUCÍA SEVILLA ACCOUNT: [id number] : 1955 LOCATION: ER AGE: 64 SEX: F EXAM STATUS: REG ER ORD. PHYSICIAN: ANABEL MCKINNON MD REASON: hypoxia PROCEDURE: PORTABLE CHEST 1V PORTABLE CHEST 1V 04/18/2019 10:09 AM INDICATION: Hypoxia COMPARISON: 03/30/2019 TECHNIQUE: Portable frontal view of the chest is provided. FINDINGS: The cardiomediastinal silhouette is similar in appearance. Lungs are clear. Minor atherosclerotic plaque noted involving the thoracic aorta. There are no significant pleural effusions. There is no pulmonary vascular congestion. No pneumothorax. IMPRESSION: There is no acute cardiopulmonary process. Electronically signed by: Pete Castillo MD (04/18/2019 10:49 AM) [facility] DICTATED and SIGNED BY: PETE CASTILLO MD DATE: 04/18/[address] [id number] IMAGING REPORT Signed PATIENT: LUCÍA SEVILLA ACCOUNT: [id number] : 1955 LOCATION: ER AGE: 64 SEX: F EXAM STATUS: REG ER ORD. PHYSICIAN: ANABEL MCKINNON MD REASON: edema pain; Doing blood gasses; wait 10 min PROCEDURE: VENOUS LOWER EXTREMITY LEFT VENOUS LOWER EXTREMITY LEFT 04/18/2019 9:55 AM Clinical Information: Left leg pain and edema. Comparison: None. Technique: Multiple grayscale, color Doppler, and spectral Doppler sonographic images of the lower extremity venous structures were obtained. Findings: The left common femoral, femoral, and popliteal veins exhibit normal compression, respiratory phasicity, and augmentation. No intraluminal thrombi are identified. Color Doppler flow is demonstrated in the left posterior tibial veins. Greater saphenous veins are patent at the saphenofemoral junction. There is a popliteal cyst measuring 4.8 x 1.1 x 2.7 cm. Impression: 1. No evidence of deep venous thrombosis. 2. Popliteal cyst measures 4.8 x 1.1 x 2.7 cm. Electronically signed by: Pete Castillo MD (04/18/2019 10:50 AM) [facility] DICTATED and SIGNED BY: PETE CASTILLO MD DATE: 04/18/19 1050 Course & Med Decision Making Course & Med Decision Making Pertinent Labs and Imaging studies reviewed. (See chart for details) Evaluation of patient in ER showed 64-year-old female patient with chronic renal failure on hemodialysis with complaining of left leg edema and pain. Patient had O2 sats of 85% at room air even she supposed Home oxygen. Patient had unremarkable evaluation for DVT and pneumonia. Patient was advised to use her home oxygen and prescription for antibiotic and was given with diagnosis of leg cellulitis. I've spoken with the patient and/or caregivers. I've explained the patient's condition, diagnosis and treatment plan based on information available to me at this time. I've answered the patient's and/or caregivers questions and addressed any concerns. The patient and/or caregivers have a good understanding the patient's diagnosis, condition and treatment plan as can be expected at this point. Vital signs have been stabilized. The patient's condition is stable for discharge from the emergency department. The patient will pursue further outpatient evaluation with her primary care provider or other designated consulting physician as outlined in the discharge instructions. Patient and/or caregivers are agreeable to this plan of care and follow-up instructions have been explained in detail. The patient and/or caregivers have received these instructions in written format and expressed understanding of these discharge instructions. The patient and her caregivers are aware that if any significant change in condition or worsening of symptoms should prompt him to immediately return to this of the closest emergency department. If an emergent department is not readily available I would encourage him to call 911. Oanhon Disclaimer Dragon Disclaimer This electronic medical record was generated, in whole or in part, using a voice recognition dictation system. Departure Departure Impression: Primary Impression: Lower extremity cellulitis Additional Impressions: Hypoxia ESRD on dialysis Anemia Tobacco use Disposition: HOME, SELF-CARE (at 1133) Condition: IMPROVED Referrals: TORI OVERTON MD (PCP) Patient Instructions: Cellulitis, Hypoxemia, Smoking Cessation, Tips For Success Additional Instructions: Take your home oxygen constantly Follow-up with your primary care physician in 2-3 days Return to ER if not getting better Scripts Cephalexin (KEFLEX) 500 Mg Capsule 2 CAP PO Q12HR, #40 CAP Prov: ANABEL MCKINNON MD 04/18/19 Problem Qualifiers Primary Impression: Lower extremity cellulitis Laterality: left Qualified Codes: L03.116 - Cellulitis of left lower limb Additional Impressions: Anemia Anemia type: unspecified type Qualified Codes: D64.9 - Anemia, unspecified ANABEL MCKINNON MD Apr 18, 2019 11:37
[2019-04-18 11:45] VITALS: BP 144/62
[2019-04-18 12:18] LABS: PLT ESTIMATE ADEQUATE (ADEQUATE)
[2019-04-18 12:19] LABS: ANISOCYTOSIS MOD
== END 2019-04-18 11:47 | disposition home or self-care (01) ==
LOC: ER 09:38
DX: L03.116 Cellulitis of left lower limb (principal); R09.02 Hypoxemia; I12.0 Hypertensive chronic kidney disease with stage 5 chronic kidney disease or end stage renal disease; N18.6 End stage renal disease; Z99.2 Dependence on renal dialysis; D64.9 Anemia, unspecified; J44.9 Chronic obstructive pulmonary disease, unspecified; E78.00 Pure hypercholesterolemia, unspecified; Z72.0 Tobacco use
CPT/HCPCS: 36415; 36600; 71045; 80053; 82550; 82805; 83605; 83880; 84484; 85025; 85379; 87040; 93005; 93971; 94640; 96374; 96375; 99285; J0696; J2930; J7620

== ENCOUNTER 2019-11-20 18:26 | Emergency (ER) | payer MEDICARE ==
[~2019-11-20] VITALS: Ht 154.9 cm; Wt 104.0 kg
[~2019-11-20 18:26] MED LIST changes: -ASCO500T2 PO; +ASCO500T4 PO; +CEPH-264 PO; +CYAN-25 PO; +MULT-658 PO; -POTA10TA12 PO; +POTASSIUM CHLO10 ME1 PO
[2019-11-20] MEDS ORDERED: ALBUTEROL SULFATE 2.5 MG/3 ML NEBU. NEB ONE (19:15)
[2019-11-20] MEDS ORDERED: IPRATRPIUM/ALBUTEROL 0.5/2.5MG 3 ML NEBU. NEB ONE (19:15)
[2019-11-20 19:38] LABS: BASO % 0 % (0-3); EOS # 0.2 x10^3/uL (0.0-0.7); EOS % 2 % (0-3); HEMATOCRIT 33.5 % (36.0-47.0); HEMOGLOBIN 11.3 g/dL (12.0-15.5); LYMPH # 0.9 x10^3/uL (1.0-4.8); LYMPH % 9 % (24-48); MEAN CORPUSCULAR HEMOGLOBIN 38 pg (25-35); MEAN CORPUSCULAR HGB CONC 34 g/dL (31-37); MEAN CORPUSCULAR VOLUME 113 fL (79-100); MONO # 0.5 x10^3/uL (0.0-1.1); MONO % 5 % (0-9); NEUT # 8.6 x10^3/uL (1.8-7.7); NEUT % 84 % (31-73); PLATELET COUNT 336 x10^3/uL (140-400); RED BLOOD COUNT 2.96 x10^6/uL (3.50-5.40); WHITE BLOOD COUNT 10.3 x10^3/uL (4.0-11.0)
--- NOTE | 2019-11-20 19:45 | RAD ---
INDICATION: Dyspnea COMPARISON: July 15, 2019 FINDINGS: Single view of chest obtained. Cardiac silhouette upper limits of normal with calcific atherosclerosis. There is some relative haziness at the lung bases without consolidation elsewhere in the lungs. IMPRESSION: * Mild haziness at the lung bases which could be secondary to foci of atelectasis although early infiltrate could also have this appearance. Electronically signed by: Ga Lugo MD (11/20/2019 7:42 PM) [id number]
[2019-11-20 19:46] LABS: CREATININE 7.4 mg/dL (0.6-1.0); GFR 5.5; POTASSIUM 4.3 mmol/L (3.5-5.1)
--- NOTE | 2019-11-20 19:49 | PHYS DOC ---
Past Medical History Past Medical History: Asthma, COPD, High Cholesterol, Hypertension, Renal Failure Past Surgical History: , Other Additional Past Surgical Histo: cataract; L upper arm fistula Smoking Status: Current Every Day Smoker Alcohol Use: None Drug Use: None General Adult EDM: Chief Complaint: SHORTNESS OF BREATH HPI: HPI: Patient is a 64 year old female who presents with complaint of shortness of breath that started this morning. Patient states that she has history of COPD and is on 2 L of oxygen at all times. She states the shortness of breath is worsened with minimal exertion. She does admit to a cough. She denies any fever or chest pain. [] Review of Systems: Review of Systems: Constitutional: Denies fever or chills. [] Respiratory: Complains of cough and shortness of breath. [] Cardiovascular: Denies chest pain or edema. [] GI: Denies abdominal pain, nausea, vomiting or diarrhea. [] Neurologic: Denies headache, focal weakness or sensory changes. [] A full 10 point review of systems has been reviewed and is otherwise negative. Heart Score: Risk Factors: Risk Factors: DM, Current or recent (<one month) smoker, HTN, HLP, family history of CAD, obesity. Risk Scores: Score 0 - 3: 2.5% MACE over next 6 weeks - Discharge Home Score 4 - 6: 20.3% MACE over next 6 weeks - Admit for Clinical Observation Score 7 - 10: 72.7% MACE over next 6 weeks - Early Invasive Strategies Current Medications: Current Medications Medications (Trade) Dose Ordered Sig/Aki Start Time Stop Time Status Last Admin Dose Admin Albuterol Sulfate (Ventolin Neb Soln) 7.5 mg 1X ONCE 11/20/19 19:15 11/20/19 19:18 DC Albuterol/ Ipratropium (Duoneb) 3 ml 1X ONCE 11/20/19 19:15 11/20/19 19:18 DC Allergies: Allergies: Allergies Coded Allergies Type Severity Reaction Last Updated Verified No Known Drug Allergies 07/19/18 No Physical Exam: PE: Constitutional: Well developed, well nourished, no acute distress, non-toxic appearance. [] HENT: Normocephalic, atraumatic, bilateral external ears normal, oropharynx moist, no oral exudates, nose normal. [] Eyes: PERRLA, EOMI, conjunctiva normal, no discharge. [] Neck: Normal range of motion, no tenderness, supple, no stridor. [] Cardiovascular: Regular rate and rhythm [] Lungs & Thorax: Coarse wheezes are noted bilaterally to auscultation [] Abdomen: Bowel sounds normal, soft, no tenderness. [] Skin: Warm, dry, no erythema, no rash. [] Extremities: No tenderness, no cyanosis, no clubbing, ROM intact. [] Neurologic: Alert and oriented X 3, no focal deficits noted. [] Current Patient Data: Labs: Laboratory Tests Test 11/20/19 19:21 White Blood Count 10.3 x10^3/uL (4.0-11.0) Red Blood Count 2.96 x10^6/uL (3.50-5.40) L Hemoglobin 11.3 g/dL (12.0-15.5) L Hematocrit 33.5 % (36.0-47.0) L Mean Corpuscular Volume 113 fL (79-100) H Mean Corpuscular Hemoglobin 38 pg (25-35) H Mean Corpuscular Hemoglobin Concent 34 g/dL (31-37) Red Cell Distribution Width 18.0 % (11.5-14.5) H Platelet Count 336 x10^3/uL (140-400) Neutrophils (%) (Auto) 84 % (31-73) H Lymphocytes (%) (Auto) 9 % (24-48) L Monocytes (%) (Auto) 5 % (0-9) Eosinophils (%) (Auto) 2 % (0-3) Basophils (%) (Auto) 0 % (0-3) Neutrophils # (Auto) 8.6 x10^3/uL (1.8-7.7) H Lymphocytes # (Auto) 0.9 x10^3/uL (1.0-4.8) L Monocytes # (Auto) 0.5 x10^3/uL (0.0-1.1) Eosinophils # (Auto) 0.2 x10^3/uL (0.0-0.7) Basophils # (Auto) 0.0 x10^3/uL (0.0-0.2) Platelet Estimate Pending Laboratory Tests 11/20/19 19:21 EKG: EKG: [] Radiology/Procedures: Radiology/Procedures: [] Impression: PROCEDURE: PORTABLE CHEST 1V INDICATION: Dyspnea COMPARISON: July 15, 2019 FINDINGS: Single view of chest obtained. Cardiac silhouette upper limits of normal with calcific atherosclerosis. There is some relative haziness at the lung bases without consolidation elsewhere in the lungs. IMPRESSION: * Mild haziness at the lung bases which could be secondary to foci of atelectasis although early infiltrate could also have this appearance. Electronically signed by: Ga Lugo MD (11/20/2019 7:42 PM) [id number] Course & Med Decision Making: Course & Med Decision Making Pertinent Labs and Imaging studies reviewed. (See chart for details) [] Dragon Disclaimer: Dragon Disclaimer: This electronic medical record was generated, in whole or in part, using a voice recognition dictation system. Departure Departure Impression: Primary Impression: COPD exacerbation Disposition: 01 HOME, SELF-CARE Condition: STABLE Referrals: TORI OVERTON MD (PCP) Patient Instructions: Chronic Obstructive Pulmonary Disease Exacerbation Scripts Azithromycin (ZITHROMAX) 250 Mg Tablet 1 PKG PO UD, #6 TAB Prov: ZAHIDA RUDOLPH Jr. DO 11/20/19 Methylprednisolone (MEDROL) 4 Mg Tab.ds.pk 1 PKG PO UD, #1 PKG Prov: ZAHIDA RUDOLPH Jr. DO 11/20/19 ZAHIDA RUDOLPH Jr. DO November 20, 2019 19:49
[2019-11-20 19:53] LABS: ALBUMIN 3.6 g/dL (3.4-5.0); ALBUMIN/GLOBULIN RATIO 0.9 (1.0-1.7); TOTAL BILIRUBIN 0.4 mg/dL (0.2-1.0); TOTAL PROTEIN 7.8 g/dL (6.4-8.2)
[2019-11-20 20:18] LABS: PLT ESTIMATE ADEQUATE (ADEQUATE)
[2019-11-20 20:19] LABS: ANISOCYTOSIS SLIGHT
[2019-11-20 21:15] VITALS: BP 135/60
[2019-11-20] MEDS ORDERED: METH4TAB2 PO (21:31)
[2019-11-20] MEDS ORDERED: AZIT250T PO (21:31)
[2019-11-20] MEDS ORDERED: HYDROcodone/APAP 7.5/325MG 1 TAB TABLET PO ONE (22:00)
--- NOTE | 2019-11-21 04:21 | EKG ---
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
== END 2019-11-20 21:40 | disposition home or self-care (01) ==
LOC: ER 18:26
DX: J44.1 Chronic obstructive pulmonary disease with (acute) exacerbation (principal); J45.901 Unspecified asthma with (acute) exacerbation; R06.02 Shortness of breath; R05 Cough; J44.9 Chronic obstructive pulmonary disease, unspecified; E78.00 Pure hypercholesterolemia, unspecified; I10 Essential (primary) hypertension; N18.9 Chronic kidney disease, unspecified; F17.200 Nicotine dependence, unspecified, uncomplicated; Z98.890 Other specified postprocedural states
CPT/HCPCS: 36415; 71045; 80053; 83880; 84484; 85025; 93005; 94640; 94644; 94760; 99285; J7613

== ENCOUNTER → 2020-04-04 | Outpatient (CLI) | payer MEDICARE ==
[~2020-04-04] MED LIST changes: +AZIT250T PO; +METH4TAB2 PO
--- NOTE | 2020-04-04 14:52 | KCIC ---
Examination: CT chest without contrast HISTORY: History of COPD, shortness of breath COMPARISON: None available Technique: Axial CT images of the abdomen pelvis were performed without contrast and coronal sagittal reformats are performed. Exposure: One or more of the following individualized dose reduction techniques were utilized for this examination: 1. Automated exposure control 2. Adjustment of the mA and/or kV according to patient size 3. Use of iterative reconstruction technique FINDINGS: Examination limited due to lack of IV contrast. The visualized thyroid gland grossly appears unremarkable central airways are patent. Coronary artery calcification is identified. The ascending aorta measures 3.2 cm in transverse dimension. No radiologically significant mediastinal lymphadenopathy. Small hiatal hernia. Linear atelectasis or infiltrate identified left lingula and right middle lobe of the lung. Mild scattered groundglass airspace opacities identified in the bilateral lungs could be secondary to air trapping. There is a 6 mm nodule identified in the left upper lobe of the lung abutting the pleura. The visualized noncontrasted liver, spleen, adrenals grossly appears unremarkable. Moderate degenerative changes thoracic spine. IMPRESSION: 1. Linear atelectasis identified in the left lingula and in the right middle lobe of the lung. 2. Scattered groundglass airspace opacities identified in the bilateral lungs probably secondary to air trapping. 6 mm nodule identified in the left upper lobe of the lung. Follow-up per Fleischner Society guidelines with follow-up CT in 6-12 months. 3. Coronary artery calcifications. 4. Small hiatal hernia. Electronically signed by: Nghia Martino MD (04/04/2020 2:49 PM) [id number]
== END | disposition home or self-care (01) ==
LOC: KCIC CT 13:33
PROVIDERS: ATTEND Internal Medicine Pulmonary Disease
DX: J44.9 Chronic obstructive pulmonary disease, unspecified (principal); K44.9 Diaphragmatic hernia without obstruction or gangrene; R91.1 Solitary pulmonary nodule; I25.10 Atherosclerotic heart disease of native coronary artery without angina pectoris
CPT/HCPCS: 71250

== ENCOUNTER 2020-04-08 12:52 | Inpatient (IN) | payer MEDICARE ==
[~2020-04-08] VITALS: Ht 154.9 cm; Wt 101.6 kg
[2020-04-08] MEDS ORDERED: IPRATRPIUM/ALBUTEROL 0.5/2.5MG 3 ML NEBU. NEB ONE (14:00)
[2020-04-08] MEDS ORDERED: DEXAMETHASONE SOD PHOS 4 MG/ML VIAL IVP ONE (14:00)
[2020-04-08 14:47] LABS: BASO % 1 % (0-3); EOS # 0.3 x10^3/uL (0.0-0.7); EOS % 3 % (0-3); HEMATOCRIT 28.9 % (36.0-47.0); HEMOGLOBIN 9.4 g/dL (12.0-15.5); LYMPH # 0.8 x10^3/uL (1.0-4.8); LYMPH % 9 % (24-48); MEAN CORPUSCULAR HEMOGLOBIN 38 pg (25-35); MEAN CORPUSCULAR HGB CONC 33 g/dL (31-37); MEAN CORPUSCULAR VOLUME 115 fL (79-100); MONO # 0.6 x10^3/uL (0.0-1.1); MONO % 6 % (0-9); NEUT # 7.3 x10^3/uL (1.8-7.7); NEUT % 81 % (31-73); PLATELET COUNT 313 x10^3/uL (140-400); RED BLOOD COUNT 2.51 x10^6/uL (3.50-5.40); RED CELL DISTRIBUTION WIDTH 19.1 % (11.5-14.5); WHITE BLOOD COUNT 8.9 x10^3/uL (4.0-11.0)
[2020-04-08 14:55] LABS: CREATININE 13.7 mg/dL (0.6-1.0); GFR 2.7; POTASSIUM 4.9 mmol/L (3.5-5.1)
[2020-04-08 15:00] LABS: ALBUMIN 3.3 g/dL (3.4-5.0); ALBUMIN/GLOBULIN RATIO 0.9 (1.0-1.7); TOTAL BILIRUBIN 0.4 mg/dL (0.2-1.0); TOTAL PROTEIN 6.8 g/dL (6.4-8.2)
--- NOTE | 2020-04-08 15:20 | RAD ---
Exam: Chest one view INDICATION: Shortness of breath TECHNIQUE: Frontal view of chest Comparisons: 11/20/2019 FINDINGS: The cardiomediastinal silhouette and pulmonary vessels are within normal limits. The lung and pleural spaces are clear. IMPRESSION: No acute cardiopulmonary process. Electronically signed by: Maverick Angelo MD (04/08/2020 3:17 PM) [id number]
[2020-04-08 15:52] LABS: MICROCYTOSIS SLIGHT; PLT ESTIMATE ADEQUATE (ADEQUATE)
--- NOTE | 2020-04-08 17:00 | PHYS DOC ---
Past Medical History Past Medical History: Asthma, COPD, High Cholesterol, Hypertension, Renal Failure Past Surgical History: , Other Additional Past Surgical Histo: cataract; L upper arm fistula Smoking Status: Current Every Day Smoker Alcohol Use: None Drug Use: None General Adult EDM: Chief Complaint: SHORTNESS OF BREATH HPI: HPI: Patient is 65-year-old female who presents to the emergency room complaining of shortness of breath. Patient states that she last had dialysis on . She was supposed to have dialysis on Wednesday, however she started having shortness of breath that morning. She states that she was unable to make it to dialysis. Her shortness of breath got significantly worse last night. She has had cough and congestion. She denies any known fevers. She states that this is unusual for her. She is on oxygen at home. She states she feels very wheezy. She has been taking her treatments at home without relief. Review of Systems: Review of Systems: General: Denies fever, chills, sweats, fatigue Eyes: Denies drainage, blurred vision, eye redness HENT: Denies rhinorrhea, sore throat, earache Respiratory: Reports cough, shortness of breath, wheezing Cardiac: Denies edema, palpitations, chest pain GI: Denies abdominal pain, Nausea, vomiting MSK: Denies back pain, neck pain Skin: Denies rash, jaundice Neuro: Denies headache, dizziness Psychiatric: Denies SI/HI Heart Score: Risk Factors: Risk Factors: DM, Current or recent (<one month) smoker, HTN, HLP, family history of CAD, obesity. Risk Scores: Score 0 - 3: 2.5% MACE over next 6 weeks - Discharge Home Score 4 - 6: 20.3% MACE over next 6 weeks - Admit for Clinical Observation Score 7 - 10: 72.7% MACE over next 6 weeks - Early Invasive Strategies Current Medications: Current Medications Medications (Trade) Dose Ordered Sig/Aki Start Time Stop Time Status Last Admin Dose Admin Albuterol/ Ipratropium (Duoneb) 3 ml 1X ONCE 04/08/20 14:00 04/08/20 14:01 DC 04/08/20 15:16 3 ML Dexamethasone Sodium Phosphate (Decadron) 10 mg 1X ONCE 04/08/20 14:00 04/08/20 14:01 DC 04/08/20 14:55 10 MG Allergies: Allergies: Allergies Coded Allergies Type Severity Reaction Last Updated Verified No Known Drug Allergies 07/19/18 No Physical Exam: PE: General: Awake, alert, NAD. Well Nourished, well hydrated. Cooperative HEENT: Atraumatic, EOMI, PERRL, airway patent, moist oral mucosa Neck: Supple, trachea midline Respiratory: Increased work of breathing, diffuse wheezing, decreased breath sounds CV: RRR, no murmur, cap refill <2 GI: Soft, nondistended, nontender, no masses MSK: No obvious deformities, fistula on left upper arm Skin: Warm, dry, intact Neuro: A&O x3, speech NL, sensory and motor grossly intact, no focal deficits Psych: Normal affect, normal mood, not suicidal or homicidal Current Patient Data: Labs: Laboratory Tests Test 04/08/20 14:25 White Blood Count 8.9 x10^3/uL (4.0-11.0) Red Blood Count 2.51 x10^6/uL (3.50-5.40) L Hemoglobin 9.4 g/dL (12.0-15.5) L Hematocrit 28.9 % (36.0-47.0) L Mean Corpuscular Volume 115 fL (79-100) H Mean Corpuscular Hemoglobin 38 pg (25-35) H Mean Corpuscular Hemoglobin Concent 33 g/dL (31-37) Red Cell Distribution Width 19.1 % (11.5-14.5) H Platelet Count 313 x10^3/uL (140-400) Neutrophils (%) (Auto) 81 % (31-73) H Lymphocytes (%) (Auto) 9 % (24-48) L Monocytes (%) (Auto) 6 % (0-9) Eosinophils (%) (Auto) 3 % (0-3) Basophils (%) (Auto) 1 % (0-3) Neutrophils # (Auto) 7.3 x10^3/uL (1.8-7.7) Lymphocytes # (Auto) 0.8 x10^3/uL (1.0-4.8) L Monocytes # (Auto) 0.6 x10^3/uL (0.0-1.1) Eosinophils # (Auto) 0.3 x10^3/uL (0.0-0.7) Basophils # (Auto) 0.0 x10^3/uL (0.0-0.2) Platelet Estimate Adequate (ADEQUATE) Microcytosis Slight Macrocytosis Slight Sodium Level 142 mmol/L (136-145) Potassium Level 4.9 mmol/L (3.5-5.1) Chloride Level 100 mmol/L (98-107) Carbon Dioxide Level 26 mmol/L (21-32) Anion Gap 16 (6-14) H Blood Urea Nitrogen 76 mg/dL (7-20) H Creatinine 13.7 mg/dL (0.6-1.0) H Estimated GFR (Cockcroft-Gault) 2.7 BUN/Creatinine Ratio 6 (6-20) Glucose Level 107 mg/dL (70-99) H Calcium Level 9.0 mg/dL (8.5-10.1) Total Bilirubin 0.4 mg/dL (0.2-1.0) Aspartate Amino Transferase (AST) 16 U/L (15-37) Alanine Aminotransferase (ALT) 16 U/L (14-59) Alkaline Phosphatase 104 U/L (46-116) Lactate Dehydrogenase 246 U/L (81-234) H Troponin I Quantitative < 0.017 ng/mL (0.000-0.055) BF-Epm-T-Type Natriuretic Peptide 3547 pg/mL (0-124) H Total Protein 6.8 g/dL (6.4-8.2) Albumin 3.3 g/dL (3.4-5.0) L Albumin/Globulin Ratio 0.9 (1.0-1.7) L Laboratory Tests 04/08/20 14:25 Laboratory Tests 04/08/20 14:25 Vital Signs: Vital Signs Date Time Temp Pulse Resp B/P (MAP) Pulse Ox O2 Delivery O2 Flow Rate FiO2 04/08/20 15:16 91 Nasal Cannula 3.5 04/08/20 13:42 98.9 96 18 157/70 (99) 98.9 EKG: EKG: [] Radiology/Procedures: Radiology/Procedures: [] Course & Med Decision Making: Course & Med Decision Making Pertinent Labs and Imaging studies reviewed. (See chart for details) Patient 65-year-old female with past medical history of end-stage renal disease, COPD, congestive heart failure on 2 L of oxygen at home who presents to the emergency room complaining of shortness of breath. Patient is requiring add itional oxygen here in the emergency room and is on 4 L of oxygen. She is acute on chronic respiratory failure with hypoxia. At this time she has significant wheezing and it is likely this is due to COPD. Cannot rule out coronavirus at this time and patient will need a coronavirus swab. Patient does not have significant pitting edema. Work-up was ordered for shortness of breath and was overall normal. Chest x-ray does not show any signs of pulmonary edema making congestive heart failure and fluid overload from end-stage renal disease less likely. She was given Decadron and will be admitted to the hospital for further care. Dragon Disclaimer: Dragon Disclaimer: This electronic medical record was generated, in whole or in part, using a voice recognition dictation system. Departure Departure Impression: Primary Impression: Acute and chronic respiratory failure with hypoxia Additional Impressions: COPD exacerbation ESRD on dialysis Disposition: ADMITTED INPATIENT Condition: STABLE Referrals: TORI OVERTON MD (PCP) Justicifation of Admission Dx: Justifications for Admission: Justification of Admission Dx: Yes VIKAS REMY MD Apr 08, 2020 17:00
--- NOTE | 2020-04-08 17:52 | PDOC1 ---
History and Physical Date of Service: DOS: DATE: 04/08/20 TIME: 17:47 Chief Complaint: Problems: (1) Respiratory failure (2) Community acquired pneumonia (3) Respiratory failure (4) Acute renal failure (ARF) (5) CHF exacerbation (6) Dentalgia (7) Infected dental caries (8) Bronchitis (9) COPD exacerbation (10) ESRD on dialysis (11) DAVID (obstructive sleep apnea) (12) Bronchospasm (13) Acute and chronic respiratory failure with hypoxia (14) Hypertension (15) Acute bronchitis (16) Dyspnea (17) Hypoxia (18) Mycobacteria, atypical (19) COPD exacerbation Chief Complain: Shortness of breath History of Present Illness: HPI: This is a middle-aged female who has end-stage renal disease and COPD and continues to smoke She dialyzed last Today she presents with worsening shortness of breath She rates it 7 out of 10 She has associated weakness She also has an associated cough This is been coming on for the last 48 hours and worsening in the past 24 hours She tried increasing her home meds with that and work Describes her symptoms as very irritated I discussed the case with the ER physician regard to meet the patient get her dialyzed consult nephrology consult pulmonary medicine and rule out Covid-19 Past Medical/Surgical History: PMH/PSH: Past Medical History: Asthma, COPD, High Cholesterol, Hypertension, Renal Failure Past Surgical History: , Other Additional Past Surgical Histo: cataract; L upper arm fistula Smoking Status: Current Every Day Smoker Allergies: Allergies: Coded Allergies: No Known Drug Allergies (Unverified , 07/19/18) Family History: Family History: Hypertension Social History: Social History: She is retired she continues to smoke no drinking or drugs Current Medications: Current Medications Current Medications Albuterol/ Ipratropium (Duoneb) 3 ml 1X ONCE NEB Last administered on 04/08/20at 15:16; Start 04/08/20 at 14:00; Stop 04/08/20 at 14:01; Status DC Dexamethasone Sodium Phosphate (Decadron) 10 mg 1X ONCE IVP Last administered on 04/08/20at 14:55; Start 04/08/20 at 14:00; Stop 04/08/20 at 14:01; Status DC Active Scripts Active Zithromax (Azithromycin) 250 Mg Tablet 1 Pkg PO UD Medrol (Methylprednisolone) 4 Mg Tab.ds.pk 1 Pkg PO UD Flovent 110MCG Hfa (Fluticasone Propionate) 12 Gm Aer.w.adap 2 Puff IH BID Reported Vitamin B-12 (Cyanocobalamin (Vitamin B-12)) 1,000 Mcg Tablet 1,000 Mcg PO DAILY Centrum Silver Tablet (Multivits-Min/Fa/Lycopene/Lut) 1 Each Tablet 1 Each PO DAILY Calcium Acetate 667 Mg Tablet 3 Cap PO TIDWMEALS Stiolto Respimat Inhal [place] (Tiotropium Br/Olodaterol HCl) 4 Gm Mist.inhal 2.5 Mcg IH DAILY Atorvastatin Calcium 40 Mg Tablet 40 Mg PO HS Vitamin C (Ascorbic Acid) 500 Mg Tablet 500 Mg PO DAILY Ventolin Hfa Inhaler (Albuterol Sulfate) 18 Gm Hfa.aer.ad 2 Puff INH Q4HRS PRN ROS: Review of Systems Review of System REVIEW OF SYSTEMS: GENERAL: Complains of weakness SKIN: No bruising, hair changes or rashes. EYES: No blurred, double or loss of vision. NOSE AND THROAT: No history of nosebleeds, hoarseness or sore throat. HEART: No history of palpitations, chest pain or shortness of breath on exertion. LUNGS: Complains of shortness of breath and cough GASTROINTESTINAL: Denies changes in appetite, nausea, vomiting, diarrhea or constipation. GENITOURINARY: No history of frequency, urgency, hesitancy or nocturia. NEUROLOGIC: Denies history of numbness, tingling, or tremor. PSYCHIATRIC: No history of panic, anxiety or depression. ENDOCRINE: No history of heat or cold intolerance, polyuria or polydipsia. EXTREMITIES: Denies joint pain, pain on walking or stiffness. Physical Exam: Vital Signs: Vital Signs Date Time Temp Pulse Resp B/P (MAP) Pulse Ox O2 Delivery O2 Flow Rate FiO2 04/08/20 15:16 91 Nasal Cannula 3.5 04/08/20 13:46 94 148/56 (86) 04/08/20 13:42 98.9 18 98.9 Physcial Exam: GEN: No apparent distress. Alert and oriented HEENT: Normal cephalic, atraumatic, external auditory canals are patent EYES: Extraocular muscles are intact, pupil are equally round and reactive to light and accommodation MUSCULOSKELETAL: Well developed , well nourished, good range of motion ENDOCRINE: No thyromegaly was palpated LYMPHATICS: No cervical chain or axillary nodes were noted HEMATOPOIETIC: No bruising NECK: Supple, no JVD, no thyromegaly was noted LUNGS: Decreased breath sounds she has a cough also Heart distant S1-S2 ABDOMEN: Soft, nontender. Positive bowel sounds, no organomegaly, normal bowel sounds EXTREMITIES: Without clubbing, cyanosis, or edema. Pedal pulses intact. Negative Homans sign NEUROLOGIC: Normal speech and tone. A&O x 3, moves all extremities, no obvious focal deficits PSYCHIATRIC: Normal affect, normal mood. Stable SKIN: No ulcerations or rashes, good skin turgor, no jaundice VASCULAR: Good capillary refill, neurovascular bundle appears to be intact Labs: Labs: Laboratory Tests Test 04/08/20 14:25 White Blood Count 8.9 x10^3/uL (4.0-11.0) Red Blood Count 2.51 x10^6/uL (3.50-5.40) Hemoglobin 9.4 g/dL (12.0-15.5) Hematocrit 28.9 % (36.0-47.0) Mean Corpuscular Volume 115 fL (79-100) Mean Corpuscular Hemoglobin 38 pg (25-35) Mean Corpuscular Hemoglobin Concent 33 g/dL (31-37) Red Cell Distribution Width 19.1 % (11.5-14.5) Platelet Count 313 x10^3/uL (140-400) Neutrophils (%) (Auto) 81 % (31-73) Lymphocytes (%) (Auto) 9 % (24-48) Monocytes (%) (Auto) 6 % (0-9) Eosinophils (%) (Auto) 3 % (0-3) Basophils (%) (Auto) 1 % (0-3) Neutrophils # (Auto) 7.3 x10^3/uL (1.8-7.7) Lymphocytes # (Auto) 0.8 x10^3/uL (1.0-4.8) Monocytes # (Auto) 0.6 x10^3/uL (0.0-1.1) Eosinophils # (Auto) 0.3 x10^3/uL (0.0-0.7) Basophils # (Auto) 0.0 x10^3/uL (0.0-0.2) Platelet Estimate Adequate (ADEQUATE) Microcytosis Slight Macrocytosis Slight Sodium Level 142 mmol/L (136-145) Potassium Level 4.9 mmol/L (3.5-5.1) Chloride Level 100 mmol/L (98-107) Carbon Dioxide Level 26 mmol/L (21-32) Anion Gap 16 (6-14) Blood Urea Nitrogen 76 mg/dL (7-20) Creatinine 13.7 mg/dL (0.6-1.0) Estimated GFR (Cockcroft-Gault) 2.7 BUN/Creatinine Ratio 6 (6-20) Glucose Level 107 mg/dL (70-99) Calcium Level 9.0 mg/dL (8.5-10.1) Total Bilirubin 0.4 mg/dL (0.2-1.0) Aspartate Amino Transf (AST/SGOT) 16 U/L (15-37) Alanine Aminotransferase (ALT/SGPT) 16 U/L (14-59) Alkaline Phosphatase 104 U/L (46-116) Lactate Dehydrogenase 246 U/L (81-234) Troponin I Quantitative < 0.017 ng/mL (0.000-0.055) FW-Nyp-E-Type Natriuretic Peptide 3547 pg/mL (0-124) Total Protein 6.8 g/dL (6.4-8.2) Albumin 3.3 g/dL (3.4-5.0) Albumin/Globulin Ratio 0.9 (1.0-1.7) Laboratory Tests Test 04/08/20 14:25 White Blood Count 8.9 x10^3/uL (4.0-11.0) Red Blood Count 2.51 x10^6/uL (3.50-5.40) Hemoglobin 9.4 g/dL (12.0-15.5) Hematocrit 28.9 % (36.0-47.0) Mean Corpuscular Volume 115 fL (79-100) Mean Corpuscular Hemoglobin 38 pg (25-35) Mean Corpuscular Hemoglobin Concent 33 g/dL (31-37) Red Cell Distribution Width 19.1 % (11.5-14.5) Platelet Count 313 x10^3/uL (140-400) Neutrophils (%) (Auto) 81 % (31-73) Lymphocytes (%) (Auto) 9 % (24-48) Monocytes (%) (Auto) 6 % (0-9) Eosinophils (%) (Auto) 3 % (0-3) Basophils (%) (Auto) 1 % (0-3) Neutrophils # (Auto) 7.3 x10^3/uL (1.8-7.7) Lymphocytes # (Auto) 0.8 x10^3/uL (1.0-4.8) Monocytes # (Auto) 0.6 x10^3/uL (0.0-1.1) Eosinophils # (Auto) 0.3 x10^3/uL (0.0-0.7) Basophils # (Auto) 0.0 x10^3/uL (0.0-0.2) Platelet Estimate Adequate (ADEQUATE) Microcytosis Slight Macrocytosis Slight Sodium Level 142 mmol/L (136-145) Potassium Level 4.9 mmol/L (3.5-5.1) Chloride Level 100 mmol/L (98-107) Carbon Dioxide Level 26 mmol/L (21-32) Anion Gap 16 (6-14) Blood Urea Nitrogen 76 mg/dL (7-20) Creatinine 13.7 mg/dL (0.6-1.0) Estimated GFR (Cockcroft-Gault) 2.7 BUN/Creatinine Ratio 6 (6-20) Glucose Level 107 mg/dL (70-99) Calcium Level 9.0 mg/dL (8.5-10.1) Total Bilirubin 0.4 mg/dL (0.2-1.0) Aspartate Amino Transf (AST/SGOT) 16 U/L (15-37) Alanine Aminotransferase (ALT/SGPT) 16 U/L (14-59) Alkaline Phosphatase 104 U/L (46-116) Lactate Dehydrogenase 246 U/L (81-234) Troponin I Quantitative < 0.017 ng/mL (0.000-0.055) TH-Tpx-M-Type Natriuretic Peptide 3547 pg/mL (0-124) Total Protein 6.8 g/dL (6.4-8.2) Albumin 3.3 g/dL (3.4-5.0) Albumin/Globulin Ratio 0.9 (1.0-1.7) Assessment/Plan Assessment/Plan Multifactorial respiratory failure (COPD possible pneumonia possible COVID-19 ESRD with probable volume overload and multiple comorbidities) Plan Rule out COVID-19 Cardiac monitoring Respiratory isolation Metered-dose inhalers O2 per nasal cannula to keep sat greater than 90 Consider IV antibiotics Consult pulmonary Consult nephrology Home meds DVT prophylaxis Full code Long-term prognosis guarded CC time 31 minutes Justifications for Admission Other Justification HYUN PETER III DO Apr 08, 2020 17:52
[2020-04-08 18:50] VITALS: BP 133/67
[2020-04-08] MEDS ORDERED: ALEN70TA6 PO (21:42)
[2020-04-08] MEDS ORDERED: NON FORMULARY ITEM (Albuterol Sulfate (Ventolin Hfa Inhaler) 2 PUFF) INH PRN (21:45)
[2020-04-08] MEDS ORDERED: ALBUTEROL SULFATE 2.5 MG/3 ML NEBU. NEB PRN (22:00)
[2020-04-09] VITALS (7 sets, daily range): BP systolic 130–163; BP diastolic 60–73
[2020-04-09] MEDS: ALBUTEROL SULFATE 8GM INHALER. INH PRN ×2 (00:23→05:58)
[2020-04-09] MEDS ORDERED: IPRATRPIUM/ALBUTEROL 0.5/2.5MG 3 ML NEBU. NEB SCH (08:00)
[2020-04-09] MEDS ORDERED: BUDESONIDE 0.5 MG/2 ML NEBU. NEB SCH (08:00)
--- NOTE | 2020-04-09 08:15 | PDOC ---
[facility] PROGRESS NOTE Date of Service DOS: DATE: 04/09/20 TIME: 08:14 Chief Complaint Chief Complaint A/P: Shortness of breath - awaiting covid 19 test results Acute hypoxic respiratory failure - likely from fluid overload, COPD, will wean O2 as tolerated. N/V/D - improving, though had a loose BM today Smoker End-stage renal disease, on hemodialysis COPD with acute exacerbation - add steroids, cont inhalers Morbid obesity DAVID Macrocytic anemia FEN - Renal diet PPX - heparin FULL CODE Dispo - inpatient for above History of Present Illness History of Present Illness Ms Delgado is a 65yo F w/ PMHx end-stage renal disease and COPD and continues to smoke who presented with worsening shortness of breath for the past 5 days. Missed dialysis on wednesday04/06/2020 due to nausea, vomiting and diarrhea and body aches. She notes these have improved, but she still has shortness of breath and cough. She continues to smoke. She tried increasing her home nebulizers which did not help. Seen after dialysis today she is feeling a bit improved, still with cough and shortness of breath. Asking for nebulizer treatments. Vitals/I&O Vitals/I&O: Vital Signs Date Time Temp Pulse Resp B/P (MAP) Pulse Ox O2 Delivery O2 Flow Rate FiO2 04/09/20 03:00 97.7 80 18 130/70 (90) 93 97.7 04/09/20 00:11 2.0 04/08/20 20:00 Nasal Cannula I & O 04/08/20 04/08/20 04/09/20 15:00 23:00 07:00 Output Total 0 ml Balance 0 ml Physical Exam Lungs: Clear, Other Labs Labs: Laboratory Tests Test 04/08/20 14:25 White Blood Count 8.9 x10^3/uL (4.0-11.0) Red Blood Count 2.51 x10^6/uL (3.50-5.40) Hemoglobin 9.4 g/dL (12.0-15.5) Hematocrit 28.9 % (36.0-47.0) Mean Corpuscular Volume 115 fL (79-100) Mean Corpuscular Hemoglobin 38 pg (25-35) Mean Corpuscular Hemoglobin Concent 33 g/dL (31-37) Red Cell Distribution Width 19.1 % (11.5-14.5) Platelet Count 313 x10^3/uL (140-400) Neutrophils (%) (Auto) 81 % (31-73) Lymphocytes (%) (Auto) 9 % (24-48) Monocytes (%) (Auto) 6 % (0-9) Eosinophils (%) (Auto) 3 % (0-3) Basophils (%) (Auto) 1 % (0-3) Neutrophils # (Auto) 7.3 x10^3/uL (1.8-7.7) Lymphocytes # (Auto) 0.8 x10^3/uL (1.0-4.8) Monocytes # (Auto) 0.6 x10^3/uL (0.0-1.1) Eosinophils # (Auto) 0.3 x10^3/uL (0.0-0.7) Basophils # (Auto) 0.0 x10^3/uL (0.0-0.2) Platelet Estimate Adequate (ADEQUATE) Microcytosis Slight Macrocytosis Slight Sodium Level 142 mmol/L (136-145) Potassium Level 4.9 mmol/L (3.5-5.1) Chloride Level 100 mmol/L (98-107) Carbon Dioxide Level 26 mmol/L (21-32) Anion Gap 16 (6-14) Blood Urea Nitrogen 76 mg/dL (7-20) Creatinine 13.7 mg/dL (0.6-1.0) Estimated GFR (Cockcroft-Gault) 2.7 BUN/Creatinine Ratio 6 (6-20) Glucose Level 107 mg/dL (70-99) Calcium Level 9.0 mg/dL (8.5-10.1) Total Bilirubin 0.4 mg/dL (0.2-1.0) Aspartate Amino Transf (AST/SGOT) 16 U/L (15-37) Alanine Aminotransferase (ALT/SGPT) 16 U/L (14-59) Alkaline Phosphatase 104 U/L (46-116) Lactate Dehydrogenase 246 U/L (81-234) Troponin I Quantitative < 0.017 ng/mL (0.000-0.055) WH-Yux-J-Type Natriuretic Peptide 3547 pg/mL (0-124) Total Protein 6.8 g/dL (6.4-8.2) Albumin 3.3 g/dL (3.4-5.0) Albumin/Globulin Ratio 0.9 (1.0-1.7) Assessment and Plan Assessmemt and Plan Problems Medical Problems: (1) Acute and chronic respiratory failure with hypoxia Status: Acute (2) COPD exacerbation Status: Acute (3) ESRD on dialysis Status: Chronic Comment Review of Relevant I have reviewed the following items court (where applicable) has been applied. Medications: Current Medications Medications (Trade) Dose Ordered Sig/Aki Route PRN Reason Start Time Stop Time Status Last Admin Dose Admin Albuterol/ Ipratropium (Duoneb) 3 ml 1X ONCE NEB 04/08/20 14:00 04/08/20 14:01 DC 04/08/20 15:16 Dexamethasone Sodium Phosphate (Decadron) 10 mg 1X ONCE IVP 04/08/20 14:00 04/08/20 14:01 DC 04/08/20 14:55 Albuterol Sulfate (Ventolin Hfa) 1 puff PRN Q4HRS PRN INH SHORTNESS OF BREATH 04/08/20 23:30 04/09/20 05:58 Justifications for Admission Other Justification YOGI COHEN MD Apr 09, 2020 08:15
[2020-04-09] MEDS: IPRATROPIUM/ALBUTEROL 20/100mcg/INH INHALER. INH SCH ×4 (08:45→21:06)
[2020-04-09] MEDS ORDERED: TIOTROPIUM BR IH SCH (09:00)
[2020-04-09] MEDS ORDERED: OLODATEROL HCL IH SCH (09:00)
[2020-04-09] MEDS ORDERED: [UNRECOGNIZED DRUG - OTHER] IH SCH (09:00)
[2020-04-09] MEDS ORDERED: NON FORMULARY ITEM (Fluticasone Propionate (Flovent 110MCG Hfa) 2 PUFF) IH SCH (09:00)
--- NOTE | 2020-04-09 09:19 | PDOC2 ---
CONSULT Date of Consult Date of Consult DATE: 04/09/20 TIME: 09:19 Reason for Consult Reason for Consult: ESRD Identification/Chief Complaint Chief Complaint shortness of breath Source Source: Chart review, Patient History of Present Illness Reason for Visit: Pt is a 65 yo CF with Dx of ESRD on HD TTS under Dr. Kwon's care and COPD , she continues to smoke She presented to the ER with worsening shortness of breath and associated weakness and cough This is been going on for the last 48 hours and worsening in the past 24 hours . Her last HD was on , she didnt go on Wednesday as she was not feeling well Denies any CP, No N/V/D. No abdominal pain Past Medical History Cardiovascular: HTN, Hyperlipidemia Pulmonary: COPD, Pneumonia, Other GI: No pertinent hx Heme/Onc: Anemia NOS Hepatobiliary: No pertinent hx Psych: No pertinent hx Rheumatologic: Other Renal/: Chronic renal failure Endocrine: Osteopenia Past Surgical History Past Surgical History: Cataract Removal, , Other Family History Family History: Heart Disease, Hypertension Social History ALCOHOL: none Drugs: None Lives: with Family Current Problem List Problem List Problems Medical Problems: (1) Acute and chronic respiratory failure with hypoxia Status: Acute (2) COPD exacerbation Status: Acute (3) ESRD on dialysis Status: Chronic Current Medications Current Medications Current Medications Albuterol/ Ipratropium (Duoneb) 3 ml 1X ONCE NEB Last administered on 04/08/20at 15:16; Start 04/08/20 at 14:00; Stop 04/08/20 at 14:01; Status DC Dexamethasone Sodium Phosphate (Decadron) 10 mg 1X ONCE IVP Last administered on 04/08/20at 14:55; Start 04/08/20 at 14:00; Stop 04/08/20 at 14:01; Status DC Non-Formulary Medication (Albuterol Sulfate (Ventolin Hfa Inhaler)) 2 puff Q4HRS PRN INH SHORTNESS OF BREATH; Start 04/08/20 at 21:45; Status UNV Non-Formulary Medication (Fluticasone Propionate (Flovent 110MCG Hfa)) 2 puff BID IH ; Start 04/09/20 at 09:00; Status UNV Non-Formulary Medication (Tiotropium Br/ Olodaterol HCl (Stiolto Respimat Inhal [place])) 2.5 mcg DAILY IH ; Start 04/09/20 at 09:00; Status UNV Albuterol/ Ipratropium (Duoneb) 3 ml RTQID NEB ; Start 04/09/20 at 08:00; Stop 04/08/20 at 23:26; Status DC Albuterol Sulfate (Ventolin Neb Soln) 2.5 mg PRN Q4HRS PRN NEB SHORTNESS OF BREATH; Start 04/08/20 at 22:00; Status Cancel Budesonide (Pulmicort) 0.5 mg RTBID NEB ; Start 04/09/20 at 08:00; Stop 04/08/20 at 23:26; Status DC Albuterol Sulfate (Ventolin Hfa) 1 puff PRN Q4HRS PRN INH SHORTNESS OF BREATH Last administered on 04/09/20at 05:58; Start 04/08/20 at 23:30 Albuterol/ Ipratropium (Combivent Respimat 20-100 Mcg) 1 puff RTQID INH Last a dministered on 04/09/20at 08:45; Start 04/09/20 at 08:00 Active Scripts Active Flovent 110MCG Hfa (Fluticasone Propionate) 12 Gm Aer.w.adap 2 Puff IH BID Reported Alendronate Sodium 70 Mg Tablet 1 Tab PO WEEKLY Vitamin B-12 (Cyanocobalamin (Vitamin B-12)) 1,000 Mcg Tablet 1,000 Mcg PO DAILY Centrum Silver Tablet (Multivits-Min/Fa/Lycopene/Lut) 1 Each Tablet 1 Each PO DAILY Calcium Acetate 667 Mg Tablet 3 Cap PO TIDWMEALS Stiolto Respimat Inhal [place] (Tiotropium Br/Olodaterol HCl) 4 Gm Mist.inhal 2.5 Mcg IH DAILY Atorvastatin Calcium 40 Mg Tablet 40 Mg PO HS Vitamin C (Ascorbic Acid) 500 Mg Tablet 500 Mg PO DAILY Ventolin Hfa Inhaler (Albuterol Sulfate) 18 Gm Hfa.aer.ad 2 Puff INH Q4HRS PRN Allergies Allergies: Coded Allergies: No Known Drug Allergies (Unverified , 07/19/18) ROS Review of System As per HPI, rest of the ROS is negative Physical Exam Physical Exam GEN: No apparent distress. Alert and oriented HEENT: Normal cephalic, atraumatic, OM moist NECK: Supple, LUNGS: Decreased breath sounds at bases, Non labored Heart distant S1-S2 ABDOMEN: Soft, nontender. Obese Positive bowel sounds, no organomegaly, normal bowel sounds EXTREMITIES: Without clubbing, cyanosis, or edema. NEUROLOGIC: Normal speech and tone. A&O x 3, moves all extremities, no obvious focal deficits PSYCHIATRIC: Normal affect, normal mood. Stable SKIN: No ulcerations or rashes, good skin turgor, no jaundice No Fermin Vital Signs Vital Signs Date Time Temp Pulse Resp B/P (MAP) Pulse Ox O2 Delivery O2 Flow Rate FiO2 04/09/20 07:05 97.4 88 21 136/60 (85) 94 Nasal Cannula 2.0 97.4 Assessment & Plan ESRD - On HD TTS under Dr. Kwon's care Last HD was on , she missed wednesday seen on dialysis , tolerating well, discussed treatment plan with Shelley Shorteness of breath at presentation- CXr unremarkable, No e/o Pulm congestion HTN- home antihypertensives Anemia - If prolonged hospitalization will add DARRICK history of COPD chronic hypoxic respiratory failure ongoing tobaccoism, morbid obesity, DAVID CoViD PUI Labs Labs Laboratory Tests Test 04/08/20 14:25 White Blood Count 8.9 x10^3/uL (4.0-11.0) Red Blood Count 2.51 x10^6/uL (3.50-5.40) Hemoglobin 9.4 g/dL (12.0-15.5) Hematocrit 28.9 % (36.0-47.0) Mean Corpuscular Volume 115 fL (79-100) Mean Corpuscular Hemoglobin 38 pg (25-35) Mean Corpuscular Hemoglobin Concent 33 g/dL (31-37) Red Cell Distribution Width 19.1 % (11.5-14.5) Platelet Count 313 x10^3/uL (140-400) Neutrophils (%) (Auto) 81 % (31-73) Lymphocytes (%) (Auto) 9 % (24-48) Monocytes (%) (Auto) 6 % (0-9) Eosinophils (%) (Auto) 3 % (0-3) Basophils (%) (Auto) 1 % (0-3) Neutrophils # (Auto) 7.3 x10^3/uL (1.8-7.7) Lymphocytes # (Auto) 0.8 x10^3/uL (1.0-4.8) Monocytes # (Auto) 0.6 x10^3/uL (0.0-1.1) Eosinophils # (Auto) 0.3 x10^3/uL (0.0-0.7) Basophils # (Auto) 0.0 x10^3/uL (0.0-0.2) Platelet Estimate Adequate (ADEQUATE) Microcytosis Slight Macrocytosis Slight Sodium Level 142 mmol/L (136-145) Potassium Level 4.9 mmol/L (3.5-5.1) Chloride Level 100 mmol/L (98-107) Carbon Dioxide Level 26 mmol/L (21-32) Anion Gap 16 (6-14) Blood Urea Nitrogen 76 mg/dL (7-20) Creatinine 13.7 mg/dL (0.6-1.0) Estimated GFR (Cockcroft-Gault) 2.7 BUN/Creatinine Ratio 6 (6-20) Glucose Level 107 mg/dL (70-99) Calcium Level 9.0 mg/dL (8.5-10.1) Total Bilirubin 0.4 mg/dL (0.2-1.0) Aspartate Amino Transf (AST/SGOT) 16 U/L (15-37) Alanine Aminotransferase (ALT/SGPT) 16 U/L (14-59) Alkaline Phosphatase 104 U/L (46-116) Lactate Dehydrogenase 246 U/L (81-234) Troponin I Quantitative < 0.017 ng/mL (0.000-0.055) YA-Uev-T-Type Natriuretic Peptide 3547 pg/mL (0-124) Total Protein 6.8 g/dL (6.4-8.2) Albumin 3.3 g/dL (3.4-5.0) Albumin/Globulin Ratio 0.9 (1.0-1.7) Laboratory Tests Test 04/08/20 14:25 White Blood Count 8.9 x10^3/uL (4.0-11.0) Red Blood Count 2.51 x10^6/uL (3.50-5.40) Hemoglobin 9.4 g/dL (12.0-15.5) Hematocrit 28.9 % (36.0-47.0) Mean Corpuscular Volume 115 fL (79-100) Mean Corpuscular Hemoglobin 38 pg (25-35) Mean Corpuscular Hemoglobin Concent 33 g/dL (31-37) Red Cell Distribution Width 19.1 % (11.5-14.5) Platelet Count 313 x10^3/uL (140-400) Neutrophils (%) (Auto) 81 % (31-73) Lymphocytes (%) (Auto) 9 % (24-48) Monocytes (%) (Auto) 6 % (0-9) Eosinophils (%) (Auto) 3 % (0-3) Basophils (%) (Auto) 1 % (0-3) Neutrophils # (Auto) 7.3 x10^3/uL (1.8-7.7) Lymphocytes # (Auto) 0.8 x10^3/uL (1.0-4.8) Monocytes # (Auto) 0.6 x10^3/uL (0.0-1.1) Eosinophils # (Auto) 0.3 x10^3/uL (0.0-0.7) Basophils # (Auto) 0.0 x10^3/uL (0.0-0.2) Platelet Estimate Adequate (ADEQUATE) Microcytosis Slight Macrocytosis Slight Sodium Level 142 mmol/L (136-145) Potassium Level 4.9 mmol/L (3.5-5.1) Chloride Level 100 mmol/L (98-107) Carbon Dioxide Level 26 mmol/L (21-32) Anion Gap 16 (6-14) Blood Urea Nitrogen 76 mg/dL (7-20) Creatinine 13.7 mg/dL (0.6-1.0) Estimated GFR (Cockcroft-Gault) 2.7 BUN/Creatinine Ratio 6 (6-20) Glucose Level 107 mg/dL (70-99) Calcium Level 9.0 mg/dL (8.5-10.1) Total Bilirubin 0.4 mg/dL (0.2-1.0) Aspartate Amino Transf (AST/SGOT) 16 U/L (15-37) Alanine Aminotransferase (ALT/SGPT) 16 U/L (14-59) Alkaline Phosphatase 104 U/L (46-116) Lactate Dehydrogenase 246 U/L (81-234) Troponin I Quantitative < 0.017 ng/mL (0.000-0.055) HD-Vso-B-Type Natriuretic Peptide 3547 pg/mL (0-124) Total Protein 6.8 g/dL (6.4-8.2) Albumin 3.3 g/dL (3.4-5.0) Albumin/Globulin Ratio 0.9 (1.0-1.7) Review All relevant outside records, renal labs, imaging studies, telemetry/EKG's were reviewed. Images Images The cardiomediastinal silhouette and pulmonary vessels are within normal limits. The lung and pleural spaces are clear. IMPRESSION: No acute cardiopulmonary process. HETAL FRIED MD Apr 09, 2020 09:19
[2020-04-09] MEDS ORDERED: IV NORMAL SALINE 1000ML BAG 1,000 ML IV PRN (10:26)
[2020-04-09] MEDS ORDERED: diphenhydrAMINE 50 MG/ML VIAL IV PRN ×2 (10:30)
[2020-04-09] MEDS ORDERED: ACETAMINOPHEN 500 MG TABLET PO PRN (10:30)
[2020-04-09] MEDS ORDERED: DIALYSIS PATIENT. MC PRN ×2 (10:30)
[2020-04-09] MEDS ORDERED: ALBUMIN HUMAN 25% 200 ML IV PRN (10:30)
[2020-04-09] MEDS: CALCIUM ACETATE 667 MG CAPSULE PO SCH ×2 (13:00→17:04)
[2020-04-09] MEDS: HEPARIN for SUB-Q USE 5,000 UNIT/ML VIAL. SQ SCH ×2 (15:00→15:26)
[2020-04-09] MEDS: MULTIVITAMIN with MINERAL TABLET. PO SCH (15:25)
[2020-04-09] MEDS: CYANOCOBALAMIN (VITAMIN B-12) 1,000 MCG TABLET. PO SCH (15:25)
[2020-04-09] MEDS: ASCORBIC ACID 500 MG TABLET PO SCH (15:26)
[2020-04-09] MEDS: methylPREDNISolone SOD SUCC PF 40 MG/ML VIAL. IV SCH ×2 (15:26→20:32)
[2020-04-09] MEDS ORDERED: ONDANSETRON PF 4 MG/2 ML VIAL. IV PRN (16:00)
[2020-04-09] MEDS ORDERED: ACETAMINOPHEN 325 MG TABLET. PO PRN (16:00)
--- NOTE | 2020-04-09 17:30 | NUR ---
NELLY following. Spoke with RN and reviewed chart. Pt from home alone with out-patient dialysis. Pt LAMAR desai, room air. NELLY following. Addendum: 04/10/20 at 1634 by LISA VILLEGAS Error: pt on 3 02 and has home
--- NOTE | 2020-04-09 18:16 | NUR ---
Patient refused her Heparin stating it breaks her out in a rash over her stomach. Patient educated on the importance of her medication. Patient still refused. MD Laya notified.
--- NOTE | 2020-04-09 19:26 | CONS ---
DATE OF CONSULTATION: 04/09/2020 PULMONARY CONSULTATION ATTENDING PHYSICIAN: Dr. Hamilton. REASON FOR CONSULTATION: Dyspnea, hypoxia. HISTORY OF PRESENT ILLNESS: The patient is a 65-year-old female who weighs 102 kilos with a BMI of 42.5. She has been smoking since age 13 and continues to smoke a pack a day. She was brought in to the hospital after she was not feeling well for the last 3-4 days. She had dialysis on . The patient then was supposed to have dialysis on Wednesday, but she started to have some shortness of breath. She said she had a cough with white sputum production, no fever, no chills, no chest pains. The patient was unable to make it to dialysis on Wednesday. The breathing got worse. She has some lower extremity edema as well. Her chest x-ray was reviewed by me. There was slightly prominent interstitial markings. No consolidation or pleural effusion observed. The patient states she is supposed to be on oxygen on a p.r.n. basis. She was also wheezing as well. As a result, she underwent dialysis. I could not locate the patient earlier as she was not in her room and the dialysis room was locked. I did the consult via telemedicine. She states she feels better after the dialysis. She is currently on oxygen at 2 liters with saturation of 90%. PAST MEDICAL HISTORY: Significant for history of COPD with ongoing tobaccoism, history of dyslipidemia, hypertension, end-stage renal disease on hemodialysis. PAST SURGICAL HISTORY: and cataract surgery. SOCIAL HISTORY: Smoker since age 13 and continues to smoke 1 pack a day. ALLERGIES: None. MEDICATIONS: Reviewed as listed in the MRAD including IV steroids and DuoNeb. REVIEW OF SYSTEMS: Ten point system obtained. Pertinent positives discussed in my history of present illness, otherwise noncontributory. All systems that were negative were reviewed as well. PHYSICAL EXAMINATION: Which was done via telemedicine: Vital signs were reviewed. She is afebrile, pulse ox 90% on 2 liters. She does not appear to be in any obvious respiratory distress. She is obese and has pitting edema. LABORATORY DATA: Reviewed. White cell count 8.9, hemoglobin 9.4 and platelets are 313. BUN 76 and creatinine 13.7. Her proBNP is 3547. IMPRESSION: 1. Acute hypoxic respiratory failure secondary to combination of acute exacerbation of chronic obstructive pulmonary disease and mild diastolic congestive heart failure. 2. End-stage renal disease, on hemodialysis. 3. Long history of tobacco use since age 13 and continues to smoke 1 pack per day. Likely underlying chronic obstructive pulmonary disease. 4. Underlying morbid obesity with a BMI of 42.5. She should consider evaluation for sleep apnea as an outpatient. RECOMMENDATIONS: 1. The patient is clinically better post hemodialysis. We will continue with present oxygen 2 liters and wean FiO2 to keep saturation 90 and above. 2. Smoking cessation counseling provided. 3. Continue with present bronchodilators. 4. IV steroids with taper. 5. Weight loss is strongly advised. 6. Consider sleep study as an outpatient. 7. Rule out COVID. Clinical suspicion is low. 8. Discussed with RN and we will follow along with you. Hopefully, discharge in the next 24 hours. MAURY BELLE MD DR: RENU/jose JOB#: [id number] / [id number]
[2020-04-09] MEDS: ENOXAPARIN 40 MG/0.4 ML SYRINGE. SQ SCH ×2 (20:33→21:00)
[2020-04-09] MEDS ORDERED: ATORVASTATIN CALCIUM 40 MG TABLET. PO SCH (21:00)
[2020-04-09] MEDS ORDERED: PSYLLIUM HUSK (SUGAR FREE) 1 PKT PACKET PO SCH (21:00)
[2020-04-10 03:00] VITALS: BP 134/64
[2020-04-10 05:30] VITALS: BP 121/66
--- NOTE | 2020-04-10 05:40 | NUR ---
Patient transferred from 660 to room 530 per wheelchair with all belongings with her per Patient. Patient oriented to room, call light and POC. Patient sitting up in recliner with call light and belongings in reach. Telemetry monitoring placed on Patient . Patient instructed to call for assistance, Patient verbalized understanding. Will monitor.
[2020-04-10 05:46] LABS: BASO % 0 % (0-3); EOS % 0 % (0-3); HEMATOCRIT 27.4 % (36.0-47.0); HEMOGLOBIN 9.3 g/dL (12.0-15.5); LYMPH # 0.4 x10^3/uL (1.0-4.8); LYMPH % 5 % (24-48); MEAN CORPUSCULAR HEMOGLOBIN 38 pg (25-35); MEAN CORPUSCULAR HGB CONC 34 g/dL (31-37); MEAN CORPUSCULAR VOLUME 112 fL (79-100); MONO # 0.3 x10^3/uL (0.0-1.1); MONO % 4 % (0-9); NEUT # 7.8 x10^3/uL (1.8-7.7); NEUT % 91 % (31-73); PLATELET COUNT 295 x10^3/uL (140-400); RED BLOOD COUNT 2.44 x10^6/uL (3.50-5.40); RED CELL DISTRIBUTION WIDTH 18.3 % (11.5-14.5); WHITE BLOOD COUNT 8.6 x10^3/uL (4.0-11.0)
[2020-04-10] MEDS: methylPREDNISolone SOD SUCC PF 40 MG/ML VIAL. IV SCH (05:52)
[2020-04-10 06:03] LABS: ALBUMIN 3.4 g/dL (3.4-5.0); CREATININE 10.2 mg/dL (0.6-1.0); GFR 3.8; PHOSPHORUS 5.6 mg/dL (2.6-4.7); POTASSIUM 5.7 mmol/L (3.5-5.1)
[2020-04-10 07:15] VITALS: BP 135/61
[2020-04-10 08:05] LABS: % BANDS 1 % (0-9); % LYMPHS 5 % (24-48); % SEGS 94 % (35-66); PLT ESTIMATE ADEQUATE (ADEQUATE)
[2020-04-10] MEDS: ASCORBIC ACID 500 MG TABLET PO SCH (08:14)
[2020-04-10] MEDS: CYANOCOBALAMIN (VITAMIN B-12) 1,000 MCG TABLET. PO SCH (08:14)
[2020-04-10] MEDS: CALCIUM ACETATE 667 MG CAPSULE PO SCH ×2 (08:14→11:24)
[2020-04-10] MEDS: MULTIVITAMIN with MINERAL TABLET. PO SCH (08:15)
[2020-04-10] MEDS: IPRATROPIUM/ALBUTEROL 20/100mcg/INH INHALER. INH SCH (08:16)
[2020-04-10] MEDS: ENOXAPARIN 40 MG/0.4 ML SYRINGE. SQ SCH (08:17)
[2020-04-10] MEDS: ALBUTEROL SULFATE 8GM INHALER. INH PRN (08:17)
--- NOTE | 2020-04-10 08:23 | PDOC ---
[employer] PROGRESS NOTE Date of Service DOS: DATE: 04/10/20 TIME: 08:22 Chief Complaint Chief Complaint A/P: Shortness of breath - negative covid 19 test results. Combination of fluid overload, smoking, COPD exacerbation Acute hypoxic respiratory failure - likely from fluid overload, COPD, will wean O2 as tolerated. N/V/D - improving Smoker End-stage renal disease, on hemodialysis COPD with acute exacerbation - add steroids, cont inhalers Morbid obesity DAVID Macrocytic anemia FEN - Renal diet PPX - heparin FULL CODE Dispo - inpatient for above History of Present Illness History of Present Illness Ms Delgado is a 65yo F w/ PMHx end-stage renal disease and COPD and continues to smoke who presented with worsening shortness of breath for the past 5 days. Missed dialysis on wednesday04/06/2020 due to nausea, vomiting and diarrhea and body aches. She notes these have improved, but she still has shortness of breath and cough. She continues to smoke. She tried increasing her home nebulizers which did not help. 04/09: Seen after dialysis today she is feeling a bit improved, still with cough and shortness of breath. COVID 19 returned negative. Afebrile. Shortness of breath improved. Asking for nebulizer treatments. WBC 8.6 Vitals/I&O Vitals/I&O: Vital Signs Date Time Temp Pulse Resp B/P (MAP) Pulse Ox O2 Delivery O2 Flow Rate FiO2 04/10/20 07:15 98.3 78 18 135/61 (85) 95 Nasal Cannula 2.0 98.3 I & O 04/09/20 04/09/20 04/10/20 15:00 23:00 07:00 Intake Total 300 ml 200 ml 600 ml Balance 300 ml 200 ml 600 ml Physical Exam General: Alert, Oriented X3, Cooperative, mild distress Heart: Regular rate, Normal S1, Normal S2 Lungs: Wheezing, Other Abdomen: Normal bowel sounds, Soft Extremities: No clubbing, No cyanosis Skin: No rashes, No breakdown Labs Labs: Laboratory Tests Test 04/09/20 13:35 04/10/20 05:10 Vitamin B12 Level > 2000 pg/mL (247-911) White Blood Count 8.6 x10^3/uL (4.0-11.0) Red Blood Count 2.44 x10^6/uL (3.50-5.40) Hemoglobin 9.3 g/dL (12.0-15.5) Hematocrit 27.4 % (36.0-47.0) Mean Corpuscular Volume 112 fL (79-100) Mean Corpuscular Hemoglobin 38 pg (25-35) Mean Corpuscular Hemoglobin Concent 34 g/dL (31-37) Red Cell Distribution Width 18.3 % (11.5-14.5) Platelet Count 295 x10^3/uL (140-400) Neutrophils (%) (Auto) 91 % (31-73) Lymphocytes (%) (Auto) 5 % (24-48) Monocytes (%) (Auto) 4 % (0-9) Eosinophils (%) (Auto) 0 % (0-3) Basophils (%) (Auto) 0 % (0-3) Neutrophils # (Auto) 7.8 x10^3/uL (1.8-7.7) Lymphocytes # (Auto) 0.4 x10^3/uL (1.0-4.8) Monocytes # (Auto) 0.3 x10^3/uL (0.0-1.1) Eosinophils # (Auto) 0.0 x10^3/uL (0.0-0.7) Basophils # (Auto) 0.0 x10^3/uL (0.0-0.2) Segmented Neutrophils % 94 % (35-66) Band Neutrophils % 1 % (0-9) Lymphocytes % 5 % (24-48) Platelet Estimate Adequate (ADEQUATE) Sodium Level 133 mmol/L (136-145) Potassium Level 5.7 mmol/L (3.5-5.1) Chloride Level 94 mmol/L (98-107) Carbon Dioxide Level 26 mmol/L (21-32) Anion Gap 13 (6-14) Blood Urea Nitrogen 58 mg/dL (7-20) Creatinine 10.2 mg/dL (0.6-1.0) Estimated GFR (Cockcroft-Gault) 3.8 Glucose Level 118 mg/dL (70-99) Calcium Level 9.0 mg/dL (8.5-10.1) Phosphorus Level 5.6 mg/dL (2.6-4.7) Albumin 3.4 g/dL (3.4-5.0) Assessment and Plan Assessmemt and Plan Problems Medical Problems: (1) Acute and chronic respiratory failure with hypoxia Status: Acute (2) COPD exacerbation Status: Acute (3) ESRD on dialysis Status: Chronic Comment Review of Relevant I have reviewed the following items court (where applicable) has been applied. Medications: Current Medications Medications (Trade) Dose Ordered Sig/Aki Route PRN Reason Start Time Stop Time Status Last Admin Dose Admin Ascorbic Acid (Vitamin C) 500 mg DAILY PO 04/09/20 13:00 04/10/20 08:14 Atorvastatin Calcium (Lipitor) 40 mg HS PO 04/09/20 21:00 04/09/20 20:32 Cyanocobalamin (Vitamin B-12) 1,000 mcg DAILY PO 04/09/20 13:00 04/10/20 08:14 Calcium Acetate (Phoslo) 2,001 mg TIDWMEALS PO 04/09/20 13:00 04/10/20 08:14 Multivitamins (Thera M Plus) 1 tab DAILY PO 04/09/20 13:00 04/10/20 08:15 Psyllium Hydrophilic Mucilloid (Metamucil Fiber Packet) 1 pkt QHS PO 04/09/20 21:00 04/09/20 20:33 Methylprednisolone Sodium Succinate (SOLU-Medrol 40MG VIAL) 40 mg Q8HRS IV 04/09/20 15:00 04/10/20 05:52 Justifications for Admission Other Justification YOGI COHEN MD Apr 10, 2020 08:23
[2020-04-10] MEDS ORDERED: IPRATRPIUM/ALBUTEROL 0.5/2.5MG 3 ML NEBU. NEB SCH ×2 (09:00→12:00)
[2020-04-10] MEDS ORDERED: predniSONE 20 MG TABLET PO SCH (09:00)
[2020-04-10] MEDS ORDERED: BUDESONIDE 0.5 MG/2 ML NEBU. NEB SCH (09:00)
--- NOTE | 2020-04-10 09:42 | PDOC ---
PULMONARY PROGRESS NOTES DATE: 04/10/20 TIME: 09:40 Subjective feels much better Vitals Vital Signs Date Time Temp Pulse Resp B/P (MAP) Pulse Ox O2 Delivery O2 Flow Rate FiO2 04/10/20 07:15 98.3 78 18 135/61 (85) 95 Nasal Cannula 2.0 98.3 General: Alert, Oriented X4, No acute distress HEENT: Other Lungs: Clear Cardiovascular: S1, S2 Abdomen: Soft, Non-tender Neuro Exam: Alert Extremities: Other (1=edema) Skin: Warm Labs Laboratory Tests Test 04/08/20 14:25 04/08/20 14:40 04/09/20 13:35 04/10/20 05:10 White Blood Count 8.9 x10^3/uL (4.0-11.0) 8.6 x10^3/uL (4.0-11.0) Red Blood Count 2.51 x10^6/uL (3.50-5.40) 2.44 x10^6/uL (3.50-5.40) Hemoglobin 9.4 g/dL (12.0-15.5) 9.3 g/dL (12.0-15.5) Hematocrit 28.9 % (36.0-47.0) 27.4 % (36.0-47.0) Mean Corpuscular Volume 115 fL (79-100) 112 fL (79-100) Mean Corpuscular Hemoglobin 38 pg (25-35) 38 pg (25-35) Mean Corpuscular Hemoglobin Concent 33 g/dL (31-37) 34 g/dL (31-37) Red Cell Distribution Width 19.1 % (11.5-14.5) 18.3 % (11.5-14.5) Platelet Count 313 x10^3/uL (140-400) 295 x10^3/uL (140-400) Neutrophils (%) (Auto) 81 % (31-73) 91 % (31-73) Lymphocytes (%) (Auto) 9 % (24-48) 5 % (24-48) Monocytes (%) (Auto) 6 % (0-9) 4 % (0-9) Eosinophils (%) (Auto) 3 % (0-3) 0 % (0-3) Basophils (%) (Auto) 1 % (0-3) 0 % (0-3) Neutrophils # (Auto) 7.3 x10^3/uL (1.8-7.7) 7.8 x10^3/uL (1.8-7.7) Lymphocytes # (Auto) 0.8 x10^3/uL (1.0-4.8) 0.4 x10^3/uL (1.0-4.8) Monocytes # (Auto) 0.6 x10^3/uL (0.0-1.1) 0.3 x10^3/uL (0.0-1.1) Eosinophils # (Auto) 0.3 x10^3/uL (0.0-0.7) 0.0 x10^3/uL (0.0-0.7) Basophils # (Auto) 0.0 x10^3/uL (0.0-0.2) 0.0 x10^3/uL (0.0-0.2) Platelet Estimate Adequate (ADEQUATE) Adequate (ADEQUATE) Microcytosis Slight Macrocytosis Slight Sodium Level 142 mmol/L (136-145) 133 mmol/L (136-145) Potassium Level 4.9 mmol/L (3.5-5.1) 5.7 mmol/L (3.5-5.1) Chloride Level 100 mmol/L (98-107) 94 mmol/L (98-107) Carbon Dioxide Level 26 mmol/L (21-32) 26 mmol/L (21-32) Anion Gap 16 (6-14) 13 (6-14) Blood Urea Nitrogen 76 mg/dL (7-20) 58 mg/dL (7-20) Creatinine 13.7 mg/dL (0.6-1.0) 10.2 mg/dL (0.6-1.0) Estimated GFR (Cockcroft-Gault) 2.7 3.8 BUN/Creatinine Ratio 6 (6-20) Glucose Level 107 mg/dL (70-99) 118 mg/dL (70-99) Calcium Level 9.0 mg/dL (8.5-10.1) 9.0 mg/dL (8.5-10.1) Total Bilirubin 0.4 mg/dL (0.2-1.0) Aspartate Amino Transf (AST/SGOT) 16 U/L (15-37) Alanine Aminotransferase (ALT/SGPT) 16 U/L (14-59) Alkaline Phosphatase 104 U/L (46-116) Lactate Dehydrogenase 246 U/L (81-234) Troponin I Quantitative < 0.017 ng/mL (0.000-0.055) WI-Fhu-W-Type Natriuretic Peptide 3547 pg/mL (0-124) Total Protein 6.8 g/dL (6.4-8.2) Albumin 3.3 g/dL (3.4-5.0) 3.4 g/dL (3.4-5.0) Albumin/Globulin Ratio 0.9 (1.0-1.7) Coronavirus (PCR) Not detected (Not Detected) Vitamin B12 Level > 2000 pg/mL (247-911) Segmented Neutrophils % 94 % (35-66) Band Neutrophils % 1 % (0-9) Lymphocytes % 5 % (24-48) Phosphorus Level 5.6 mg/dL (2.6-4.7) Laboratory Tests Test 04/09/20 13:35 04/10/20 05:10 Vitamin B12 Level > 2000 pg/mL (247-911) White Blood Count 8.6 x10^3/uL (4.0-11.0) Red Blood Count 2.44 x10^6/uL (3.50-5.40) Hemoglobin 9.3 g/dL (12.0-15.5) Hematocrit 27.4 % (36.0-47.0) Mean Corpuscular Volume 112 fL (79-100) Mean Corpuscular Hemoglobin 38 pg (25-35) Mean Corpuscular Hemoglobin Concent 34 g/dL (31-37) Red Cell Distribution Width 18.3 % (11.5-14.5) Platelet Count 295 x10^3/uL (140-400) Neutrophils (%) (Auto) 91 % (31-73) Lymphocytes (%) (Auto) 5 % (24-48) Monocytes (%) (Auto) 4 % (0-9) Eosinophils (%) (Auto) 0 % (0-3) Basophils (%) (Auto) 0 % (0-3) Neutrophils # (Auto) 7.8 x10^3/uL (1.8-7.7) Lymphocytes # (Auto) 0.4 x10^3/uL (1.0-4.8) Monocytes # (Auto) 0.3 x10^3/uL (0.0-1.1) Eosinophils # (Auto) 0.0 x10^3/uL (0.0-0.7) Basophils # (Auto) 0.0 x10^3/uL (0.0-0.2) Segmented Neutrophils % 94 % (35-66) Band Neutrophils % 1 % (0-9) Lymphocytes % 5 % (24-48) Platelet Estimate Adequate (ADEQUATE) Sodium Level 133 mmol/L (136-145) Potassium Level 5.7 mmol/L (3.5-5.1) Chloride Level 94 mmol/L (98-107) Carbon Dioxide Level 26 mmol/L (21-32) Anion Gap 13 (6-14) Blood Urea Nitrogen 58 mg/dL (7-20) Creatinine 10.2 mg/dL (0.6-1.0) Estimated GFR (Cockcroft-Gault) 3.8 Glucose Level 118 mg/dL (70-99) Calcium Level 9.0 mg/dL (8.5-10.1) Phosphorus Level 5.6 mg/dL (2.6-4.7) Albumin 3.4 g/dL (3.4-5.0) Medications Active Scripts Medications Dose Route/Sig Max Daily Dose Days Date Category Alendronate Sodium 70 Mg Tablet 1 Tab PO WEEKLY 04/08/20 Reported Vitamin B-12 (Cyanocobalamin (Vitamin B-12)) 1,000 Mcg Tablet 1,000 Mcg PO DAILY 07/14/19 Reported Centrum Silver Tablet (Multivits-Min/Fa/Lycopene/Lut) 1 Each Tablet 1 Each PO DAILY 07/14/19 Reported Calcium Acetate 667 Mg Tablet 3 Cap PO TIDWMEALS 03/13/19 Reported Stiolto Respimat Inhal [place] (Tiotropium Br/Olodaterol HCl) 4 Gm Mist.inhal 2.5 Mcg IH DAILY 12/21/17 Reported Flovent 110MCG Hfa (Fluticasone Propionate) 12 Gm Aer.w.adap 2 Puff IH BID 12/29/16 Rx Atorvastatin Calcium 40 Mg Tablet 40 Mg PO HS 04/07/15 Reported Vitamin C (Ascorbic Acid) 500 Mg Tablet 500 Mg PO DAILY 9/19/15 Reported Ventolin Hfa Inhaler (Albuterol Sulfate) 18 Gm Hfa.aer.ad 2 Puff INH Q4HRS PRN 03/30/15 Reported Impression . 1. Acute hypoxic respiratory failure secondary to combination of acute exacerbation of chronic obstructive pulmonary disease and mild diastolic congestive heart failure. 2. End-stage renal disease, on hemodialysis. 3. Long history of tobacco use since age 13 and continues to smoke 1 pack per day. Likely underlying chronic obstructive pulmonary disease. 4. Underlying morbid obesity with a BMI of 42.5. She should consider evaluation for sleep apnea as an outpatient. Plan . 1. The patient is clinically better post hemodialysis. We will continue with present oxygen 2 liters and wean FiO2 to keep saturation 90 and above. 2. Smoking cessation counseling provided. 3. Continue with present bronchodilators. 4. steroids with taper. 5. Weight loss is strongly advised. 6. Consider sleep study as an outpatient. 7. Ruled out for COVID. 8. ok with dc home today MAURY BELLE MD Apr 10, 2020 09:42
[2020-04-10 11:01] VITALS: BP 137/63
[2020-04-10] MEDS ORDERED: PRED20TA PO (11:47)
--- NOTE | 2020-04-10 11:50 | PDOC3 ---
Discharge Summary Visit Information Date of Admission: Apr 09, 2020 Date of Discharge: Apr 10, 2020 Admitting Diagnosis: Acute on chronic hypoxic respiratory failure Final Diagnosis Problems Medical Problems: (1) Acute and chronic respiratory failure with hypoxia Status: Acute (2) COPD exacerbation Status: Acute (3) ESRD on dialysis Status: Chronic Brief Hospital Course Allergies Allergies Coded Allergies Type Severity Reaction Last Updated Verified No Known Drug Allergies 07/19/18 No Vital Signs Vital Signs Date Time Temp Pulse Resp B/P (MAP) Pulse Ox O2 Delivery O2 Flow Rate FiO2 04/10/20 11:38 95 Nasal Cannula 2.0 04/10/20 11:01 97.5 89 20 137/63 (87) 97.5 Lab Results Laboratory Tests Test 04/08/20 14:25 04/08/20 14:40 04/09/20 13:35 04/10/20 05:10 White Blood Count 8.9 x10^3/uL (4.0-11.0) 8.6 x10^3/uL (4.0-11.0) Red Blood Count 2.51 x10^6/uL (3.50-5.40) 2.44 x10^6/uL (3.50-5.40) Hemoglobin 9.4 g/dL (12.0-15.5) 9.3 g/dL (12.0-15.5) Hematocrit 28.9 % (36.0-47.0) 27.4 % (36.0-47.0) Mean Corpuscular Volume 115 fL (79-100) 112 fL (79-100) Mean Corpuscular Hemoglobin 38 pg (25-35) 38 pg (25-35) Mean Corpuscular Hemoglobin Concent 33 g/dL (31-37) 34 g/dL (31-37) Red Cell Distribution Width 19.1 % (11.5-14.5) 18.3 % (11.5-14.5) Platelet Count 313 x10^3/uL (140-400) 295 x10^3/uL (140-400) Neutrophils (%) (Auto) 81 % (31-73) 91 % (31-73) Lymphocytes (%) (Auto) 9 % (24-48) 5 % (24-48) Monocytes (%) (Auto) 6 % (0-9) 4 % (0-9) Eosinophils (%) (Auto) 3 % (0-3) 0 % (0-3) Basophils (%) (Auto) 1 % (0-3) 0 % (0-3) Neutrophils # (Auto) 7.3 x10^3/uL (1.8-7.7) 7.8 x10^3/uL (1.8-7.7) Lymphocytes # (Auto) 0.8 x10^3/uL (1.0-4.8) 0.4 x10^3/uL (1.0-4.8) Monocytes # (Auto) 0.6 x10^3/uL (0.0-1.1) 0.3 x10^3/uL (0.0-1.1) Eosinophils # (Auto) 0.3 x10^3/uL (0.0-0.7) 0.0 x10^3/uL (0.0-0.7) Basophils # (Auto) 0.0 x10^3/uL (0.0-0.2) 0.0 x10^3/uL (0.0-0.2) Platelet Estimate Adequate (ADEQUATE) Adequate (ADEQUATE) Microcytosis Slight Macrocytosis Slight Sodium Level 142 mmol/L (136-145) 133 mmol/L (136-145) Potassium Level 4.9 mmol/L (3.5-5.1) 5.7 mmol/L (3.5-5.1) Chloride Level 100 mmol/L (98-107) 94 mmol/L (98-107) Carbon Dioxide Level 26 mmol/L (21-32) 26 mmol/L (21-32) Anion Gap 16 (6-14) 13 (6-14) Blood Urea Nitrogen 76 mg/dL (7-20) 58 mg/dL (7-20) Creatinine 13.7 mg/dL (0.6-1.0) 10.2 mg/dL (0.6-1.0) Estimated GFR (Cockcroft-Gault) 2.7 3.8 BUN/Creatinine Ratio 6 (6-20) Glucose Level 107 mg/dL (70-99) 118 mg/dL (70-99) Calcium Level 9.0 mg/dL (8.5-10.1) 9.0 mg/dL (8.5-10.1) Total Bilirubin 0.4 mg/dL (0.2-1.0) Aspartate Amino Transf (AST/SGOT) 16 U/L (15-37) Alanine Aminotransferase (ALT/SGPT) 16 U/L (14-59) Alkaline Phosphatase 104 U/L (46-116) Lactate Dehydrogenase 246 U/L (81-234) Troponin I Quantitative < 0.017 ng/mL (0.000-0.055) RH-Onw-T-Type Natriuretic Peptide 3547 pg/mL (0-124) Total Protein 6.8 g/dL (6.4-8.2) Albumin 3.3 g/dL (3.4-5.0) 3.4 g/dL (3.4-5.0) Albumin/Globulin Ratio 0.9 (1.0-1.7) Coronavirus (PCR) Not detected (Not Detected) Vitamin B12 Level > 2000 pg/mL (247-911) Segmented Neutrophils % 94 % (35-66) Band Neutrophils % 1 % (0-9) Lymphocytes % 5 % (24-48) Phosphorus Level 5.6 mg/dL (2.6-4.7) Laboratory Tests Test 04/09/20 13:35 04/10/20 05:10 Vitamin B12 Level > 2000 pg/mL (247-911) White Blood Count 8.6 x10^3/uL (4.0-11.0) Red Blood Count 2.44 x10^6/uL (3.50-5.40) Hemoglobin 9.3 g/dL (12.0-15.5) Hematocrit 27.4 % (36.0-47.0) Mean Corpuscular Volume 112 fL (79-100) Mean Corpuscular Hemoglobin 38 pg (25-35) Mean Corpuscular Hemoglobin Concent 34 g/dL (31-37) Red Cell Distribution Width 18.3 % (11.5-14.5) Platelet Count 295 x10^3/uL (140-400) Neutrophils (%) (Auto) 91 % (31-73) Lymphocytes (%) (Auto) 5 % (24-48) Monocytes (%) (Auto) 4 % (0-9) Eosinophils (%) (Auto) 0 % (0-3) Basophils (%) (Auto) 0 % (0-3) Neutrophils # (Auto) 7.8 x10^3/uL (1.8-7.7) Lymphocytes # (Auto) 0.4 x10^3/uL (1.0-4.8) Monocytes # (Auto) 0.3 x10^3/uL (0.0-1.1) Eosinophils # (Auto) 0.0 x10^3/uL (0.0-0.7) Basophils # (Auto) 0.0 x10^3/uL (0.0-0.2) Segmented Neutrophils % 94 % (35-66) Band Neutrophils % 1 % (0-9) Lymphocytes % 5 % (24-48) Platelet Estimate Adequate (ADEQUATE) Sodium Level 133 mmol/L (136-145) Potassium Level 5.7 mmol/L (3.5-5.1) Chloride Level 94 mmol/L (98-107) Carbon Dioxide Level 26 mmol/L (21-32) Anion Gap 13 (6-14) Blood Urea Nitrogen 58 mg/dL (7-20) Creatinine 10.2 mg/dL (0.6-1.0) Estimated GFR (Cockcroft-Gault) 3.8 Glucose Level 118 mg/dL (70-99) Calcium Level 9.0 mg/dL (8.5-10.1) Phosphorus Level 5.6 mg/dL (2.6-4.7) Albumin 3.4 g/dL (3.4-5.0) Brief Hospital Course Ms Delgado is a 65yo F w/ PMHx end-stage renal disease and COPD and continues to smoke who presented with worsening shortness of breath for the past 5 days. Missed dialysis on wednesday04/06/2020 due to nausea, vomiting and diarrhea and body aches. She notes these have improved, but she still has shortness of breath and cough. She continues to smoke. She tried increasing her home nebulizers which did not help. 04/09: Seen after dialysis today she is feeling a bit improved, still with cough and shortness of breath. COVID 19 returned negative. Afebrile. Shortness of breath improved. Asking for nebulizer treatments. WBC 8.6 Consults: Pulm,nephrology Problem list: Shortness of breath - negative covid 19 test results. Combination of fluid overload, smoking, COPD exacerbation Acute hypoxic respiratory failure - likely from fluid overload, COPD, will wean O2 as tolerated. N/V/D - improving Smoker End-stage renal disease, on hemodialysis COPD with acute exacerbation - add steroids, cont inhalers Morbid obesity DAVID - on home CPAP Macrocytic anemia Hypocalcemia Greater than 30 minutes spent on d/c Discharge Information Condition at Discharge: Improved Follow Up: Weeks Disposition/Orders: D/C to Home Scheduled Alendronate Sodium (Alendronate Sodium) 70 Mg Tablet, 1 TAB PO WEEKLY for supplement, #4 Ref 3 (Reported) Entered as Reported by: Vasquez Conley on 04/08/202141 Last Action: New Order on 04/08/202141 by Vasquez Conley Ascorbic Acid (Vitamin C) 500 Mg Tablet, 500 MG PO DAILY, (Reported) Entered as Reported by: DERRICK URIBE on 03/30/15 1018 Last Action: Continued on 04/09/201225 by YOGI COHEN MD Atorvastatin Calcium (Atorvastatin Calcium) 40 Mg Tablet, 40 MG PO HS for FOR CHOLESTEROL, Ref 0 (Reported) Entered as Reported by: RODOLFO ROBLES on 04/07/15 1828 Last Action: Continued on 04/09/201225 by YOGI COHEN MD Calcium Acetate (Calcium Acetate) 667 Mg Tablet, 3 CAP PO TIDWMEALS for DIALYSIS PATIENTS, (Reported) Entered as Reported by: DANY PIMENTEL on 03/13/19 1502 Last Action: Converted on 04/09/201225 by YOIG COHEN MD Cyanocobalamin (Vitamin B-12) (Vitamin B-12) 1,000 Mcg Tablet, 1,000 MCG PO DAILY for vitamin, (Reported) Entered as Reported by: LAURITA HERNANDEZ on 07/14/19 2351 Last Action: Continued on 04/09/201225 by YOGI COHEN MD Fluticasone Propionate (Flovent 110MCG Hfa) 12 Gm Aer.w.adap, 2 PUFF IH BID, #1 Ref 2 Prescribed by: JEAN PAUL YEN on 12/29/16 1221 Last Action: Converted on 04/08/202145 by Vasquez Conley Multivits-Min/Fa/Lycopene/Lut (Centrum Silver Tablet) 1 Each Tablet, 1 EACH PO D AILY for vitamin, (Reported) Entered as Reported by: LAURITA HERNANDEZ on 07/14/19 2351 Last Action: Converted on 04/09/20 1226 by YOGI COHEN MD Prednisone (Prednisone) 20 Mg Tablet, 20 MG PO DAILY for COPD exacerbation for 5 Days, #5 Prescribed by: YOGI COHEN MD on 04/10/20 1147 Tiotropium Br/Olodaterol HCl (Stiolto Respimat Inhal [place]) 4 Gm Mist.inhal, 2.5 MCG IH DAILY, (Reported) Entered as Reported by: VENUS PERALES on 12/21/17 0817 Last Action: Converted on 04/08/202145 by Vasquez Conley Scheduled PRN Albuterol Sulfate (Ventolin Hfa Inhaler) 18 Gm Hfa.aer.ad, 2 PUFF INH Q4HRS PRN for SHORTNESS OF BREATH, Ref 0 (Reported) Entered as Reported by: DERRICK URIBE on 03/30/15 1018 Last Action: Converted on 04/08/202145 by Vasquez Conley Justicifation of Admission Dx: Justifications for Admission: Justification of Admission Dx: Yes YOGI COHEN MD Apr 10, 2020 11:50
[2020-04-10] MEDS ORDERED: IPRA3AMP29 NEB (11:51)
[2020-04-10] MEDS ORDERED: BUDE0.5A NEB (11:51)
--- NOTE | 2020-04-10 13:35 | PDOC ---
DATE OF SERVICE DATE: 04/10/20 TIME: 13:33 SUBJECTIVE ROS No complaints today OBJECTIVE Vital Signs Vital Signs Date Time Temp Pulse Resp B/P (MAP) Pulse Ox O2 Delivery O2 Flow Rate FiO2 04/10/20 11:38 95 Nasal Cannula 2.0 04/10/20 11:01 97.5 89 20 137/63 (87) 97.5 I & 0 Intake and Output 04/10/20 07:00 Intake Total 1100 ml Balance 1100 ml Intake Oral 1100 ml # Voids 2 # Bowel Movements 4 PHYSICAL EXAM Physical Exam GEN: No apparent distress. Alert and oriented HEENT: Normal cephalic, atraumatic, OM moist , On O2 by NC NECK: Supple, LUNGS: Decreased breath sounds at bases, Non labored Heart distant S1-S2 ABDOMEN: Soft, nontender. Obese Positive bowel sounds, no organomegaly, normal bowel sounds EXTREMITIES: Without clubbing, cyanosis, or edema. NEUROLOGIC: Normal speech and tone. A&O x 3, moves all extremities, no obvious focal deficits PSYCHIATRIC: Normal affect, normal mood. Stable SKIN: No ulcerations or rashes, good skin turgor, no jaundice No [place] DIAGNOSIS/ASSESSMENT Assessment & Plan ESRD - On HD TTS under Dr. Kwon's care Chronic Non compliance with OP dialysis Currently No indication for HD today Shorteness of breath at presentation- CXr unremarkable, No e/o Pulm congestion HTN- home antihypertensives Anemia - If prolonged hospitalization will add DARRICK history of COPD chronic hypoxic respiratory failure ongoing tobaccoism, morbid obesity, DAVID CoViD negative DC per primary, advised Pt to go back to OP Unit for HD tomorrow if dced home COMMENT/RELEVANT DATA Meds Current Medications Medications (Trade) Dose Ordered Sig/Aki Start Time Stop Time Status Last Admin Dose Admin Acetaminophen (Tylenol) 650 mg PRN Q4HRS PRN 04/09/20 16:00 Albumin Human 200 ml @ 200 mls/hr 1X PRN PRN 04/09/20 10:30 04/09/20 16:29 DC Albuterol Sulfate (Ventolin Hfa) 1 puff PRN Q4HRS PRN 04/08/20 23:30 04/10/20 08:17 1 PUFF Albuterol Sulfate (Ventolin Neb Soln) 2.5 mg PRN Q4HRS PRN 04/08/20 22:00 Cancel Albuterol/ Ipratropium (Combivent Respimat 20-100 Mcg) 1 puff RTQID 04/09/20 08:00 04/10/20 08:54 DC 04/10/20 08:16 1 PUFF Albuterol/ Ipratropium (Duoneb) 3 ml RTQID 04/10/20 12:00 04/10/20 11:38 3 ML Ascorbic Acid (Vitamin C) 500 mg DAILY 04/09/20 13:00 04/10/20 08:14 500 MG Atorvastatin Calcium (Lipitor) 40 mg HS 04/09/20 21:00 04/09/20 20:32 40 MG Budesonide (Pulmicort) 0.5 mg RTBID 04/10/20 09:00 04/10/20 11:38 0.5 MG Calcium Acetate (Phoslo) 2,001 mg TIDWMEALS 04/09/20 13:00 04/10/20 11:24 1,334 MG Cyanocobalamin (Vitamin B-12) 1,000 mcg DAILY 04/09/20 13:00 04/10/20 08:14 1,000 MCG Dexamethasone Sodium Phosphate (Decadron) 10 mg 1X ONCE 04/08/20 14:00 04/08/20 14:01 DC 04/08/20 14:55 10 MG Diphenhydramine HCl (Benadryl) 25 mg 1X PRN PRN 04/09/20 10:30 04/10/20 10:29 DC Enoxaparin Sodium (Lovenox 40mg Syringe) 40 mg BID 04/09/20 21:00 Heparin Sodium (Porcine) (Heparin Sodium) 5,000 unit Q8HRS 04/09/20 15:00 04/09/20 19:04 DC Info (PHARMACY MONITORING -- do not chart) 1 each PRN DAILY PRN 04/09/20 10:30 UNV Methylprednisolone Sodium Succinate (SOLU-Medrol 40MG VIAL) 40 mg Q8HRS 04/09/20 15:00 04/10/20 08:22 DC 04/10/20 05:52 40 MG Multivitamins (Thera M Plus) 1 tab DAILY 04/09/20 13:00 04/10/20 08:15 1 TAB Non-Formulary Medication (Albuterol Sulfate (Ventolin Hfa Inhaler)) 2 puff Q4HRS PRN 04/08/20 21:45 UNV Non-Formulary Medication (Fluticasone Propionate (Flovent 110MCG Hfa)) 2 puff BID 04/09/20 09:00 UNV Non-Formulary Medication (Tiotropium Br/ Olodaterol HCl (Stiolto Respimat Inhal [place])) 2.5 mcg DAILY 04/09/20 09:00 UNV Ondansetron HCl (Zofran) 4 mg PRN Q4HRS PRN 04/09/20 16:00 Prednisone (Prednisone) 20 mg DAILY 04/10/20 09:00 04/15/20 08:59 04/10/20 11:24 20 MG Psyllium Hydrophilic Mucilloid (Metamucil Fiber Packet) 1 pkt QHS 04/09/20 21:00 04/09/20 20:33 1 PKT Sodium Chloride 1,000 ml @ 1,000 mls/hr Q1H PRN 04/09/20 10:26 04/09/20 16:25 DC Lab Laboratory Tests Test 04/09/20 13:35 04/10/20 05:10 Vitamin B12 Level > 2000 pg/mL (247-911) White Blood Count 8.6 x10^3/uL (4.0-11.0) Red Blood Count 2.44 x10^6/uL (3.50-5.40) Hemoglobin 9.3 g/dL (12.0-15.5) Hematocrit 27.4 % (36.0-47.0) Mean Corpuscular Volume 112 fL (79-100) Mean Corpuscular Hemoglobin 38 pg (25-35) Mean Corpuscular Hemoglobin Concent 34 g/dL (31-37) Red Cell Distribution Width 18.3 % (11.5-14.5) Platelet Count 295 x10^3/uL (140-400) Neutrophils (%) (Auto) 91 % (31-73) Lymphocytes (%) (Auto) 5 % (24-48) Monocytes (%) (Auto) 4 % (0-9) Eosinophils (%) (Auto) 0 % (0-3) Basophils (%) (Auto) 0 % (0-3) Neutrophils # (Auto) 7.8 x10^3/uL (1.8-7.7) Lymphocytes # (Auto) 0.4 x10^3/uL (1.0-4.8) Monocytes # (Auto) 0.3 x10^3/uL (0.0-1.1) Eosinophils # (Auto) 0.0 x10^3/uL (0.0-0.7) Basophils # (Auto) 0.0 x10^3/uL (0.0-0.2) Segmented Neutrophils % 94 % (35-66) Band Neutrophils % 1 % (0-9) Lymphocytes % 5 % (24-48) Platelet Estimate Adequate (ADEQUATE) Sodium Level 133 mmol/L (136-145) Potassium Level 5.7 mmol/L (3.5-5.1) Chloride Level 94 mmol/L (98-107) Carbon Dioxide Level 26 mmol/L (21-32) Anion Gap 13 (6-14) Blood Urea Nitrogen 58 mg/dL (7-20) Creatinine 10.2 mg/dL (0.6-1.0) Estimated GFR (Cockcroft-Gault) 3.8 Glucose Level 118 mg/dL (70-99) Calcium Level 9.0 mg/dL (8.5-10.1) Phosphorus Level 5.6 mg/dL (2.6-4.7) Albumin 3.4 g/dL (3.4-5.0) Results All relevant outside records, renal labs, imaging studies, telemetry/EKG's were reviewed. Justicifation of Admission Dx: Justifications for Admission: Justification of Admission Dx: Yes HETAL FRIED MD Apr 10, 2020 13:35
--- NOTE | 2020-04-10 16:38 | NUR ---
SW following. Spoke with RN and reviewed chart. Pt to discharge home today, self-care. Patient COVID negative. Spoke with pt prior to discharge. Pt actually lives with spouse and has home 02 with [facility]. Pt has a nebulizer at home and medication scripts were faxed upon discharge. Pt does out-patient dialysis at [facility]. Pt declined the need for HH on discharge. No further SW needs identified.
== END 2020-04-10 14:30 | disposition home or self-care (01) | DRG 189 ==
LOC: ER 12:52 → 6 SOUTH 16:00 → OBSVTOIN 04-09 12:25 → 5 NORTH 04-10 05:38
PROVIDERS: ADMIT Internal Medicine; ATTEND Internal Medicine
PROC: 5A09357 Assistance with Respiratory Ventilation, Less than 24 Consecutive Hours, Continuous Positive Airway Pressure (ICD-10-PCS; principal; 2020-04-09)
DX: J96.21 Acute and chronic respiratory failure with hypoxia (principal); N18.6 End stage renal disease; I13.2 Hypertensive heart and chronic kidney disease with heart failure and with stage 5 chronic kidney disease, or end stage renal disease; J44.0 Chronic obstructive pulmonary disease with (acute) lower respiratory infection; J44.1 Chronic obstructive pulmonary disease with (acute) exacerbation; Z68.41 Body mass index [BMI] 40.0-44.9, adult; E87.70 Fluid overload, unspecified; K04.7 Periapical abscess without sinus; D53.9 Nutritional anemia, unspecified; E66.01 Morbid (severe) obesity due to excess calories; E78.00 Pure hypercholesterolemia, unspecified; E78.5 Hyperlipidemia, unspecified; F17.210 Nicotine dependence, cigarettes, uncomplicated; G47.33 Obstructive sleep apnea (adult) (pediatric); I50.9 Heart failure, unspecified; E83.51 Hypocalcemia; J20.9 Acute bronchitis, unspecified; K02.9 Dental caries, unspecified; M85.80 Other specified disorders of bone density and structure, unspecified site; Z20.828 Contact with and (suspected) exposure to other viral communicable diseases; Z82.49 Family history of ischemic heart disease and other diseases of the circulatory system; Z99.2 Dependence on renal dialysis
CPT/HCPCS: 36415; 71045; 80053; 80069; 82607; 83615; 83880; 84484; 85007; 85025; 87493; 94640; 96374; 99285; G0378; G0379; J1100; J1644; J1650; J2920; J7512; J7626; U0003-CS